=== PATIENT | male | born 1970 | race Caucasian/White ===

== ENCOUNTER 2017-09-13 17:02 | Emergency (ER) | payer BC, OTHER ==
[~2017-09-13] VITALS: Ht 167.6 cm; Wt 133.3 kg
[2017-09-13 17:06] VITALS: TEMP 36.4; Ht 167.6 cm; Wt 133.3 kg
[2017-09-13] MEDS ORDERED: DiphenhydrAMINE HCL 50 MG/ML VIAL IM STA (17:14)
[2017-09-13] MEDS ORDERED: PROCHLORPERAZINE 5 MG/ML 2 ML VIAL IM STA (17:14)
[2017-09-13] MEDS ORDERED: KETOROLAC TROMETHAMINE 60 MG/2 ML VIAL IM STA (17:14)
[2017-09-13] MEDS ORDERED: DIPH25TA33 PO (17:24)
[2017-09-13] MEDS ORDERED: SUMA50TA15 PO (17:24)
[2017-09-13] MEDS ORDERED: ATOR-24 PO (17:24)
[2017-09-13 18:16] VITALS: BP 149/95; PULSE 62; O2SAT 99
--- NOTE | 2017-09-13 19:44 | EMERGENCY ROOM VISIT NOTE ---
History Report prepared by Miko: Jesus Rosenberg Under the Supervision of: Dr. Rylan Cassidy M.D. First contact with patient: 17:09 Chief Complaint: HEADACHE Stated Complaint: MIGRAINE History of Present Illness The patient is a 47 year old male who presents to the Emergency Room with complaints of a constant, throbbing, migraine beginning last night. The patient states that he has a history of migraines and developed a migraine last night that worsened today when he was at work. He notes that his migraine is behind his eyes up to the top of his head. He also complains of vomiting just before coming to the emergency department. He reports that light worsens his symptoms. The patient states that he took Imitrex and Benadryl at 1430 today with no relief of his symptoms. He notes that he has not had a migraine this bad in over a year. He denies any fever, numbness, weakness, and recent trauma. Source of History: patient Onset: last night Position: head Quality: other (throbbing) Timing: constant Modifying Factors (Worsening): other (light) Associated Symptoms: + vomiting, No fevers, No weakness, No numbness Review of Systems See HPI for pertinent positives & negatives. A total of 10 systems reviewed and were otherwise negative. Past Medical & Surgical Medical Problems: (1) Kidney stones (2) Migraine Surgical Problems: (1) H/O hernia repair (2) H/O: knee surgery (3) History of hand surgery (4) History of hernia surgery (5) History of knee surgery (6) History of tonsillectomy Family History Cancer Diabetes mellitus Kidney disease Kidney stones Lung disease Social History Smoking Status: Never Smoker Alcohol Use: occasionally Marital Status: Housing Status: lives with family Occupation Status: employed Current/Historical Medications Scheduled Atorvastatin (Lipitor), 40 MG PO DAILY Scheduled PRN Diphenhydramine Hcl (Diphenhydramine Hcl), 25 MG PO UD PRN for Sleep Sumatriptan Succinate (Imitrex), 50 MG PO UD PRN for Headache Allergies Coded Allergies: Meclizine (Unverified Allergy, Severe, HEART RACE, 08/18/15) Physical Exam Vital Signs Date Time Temp Pulse Resp B/P (MAP) Pulse Ox O2 Delivery O2 Flow Rate FiO2 09/13/17 18:16 62 16 149/95 99 Room Air 09/13/17 17:06 36.4 75 18 151/84 98 Room Air Physical Exam Constitutional: Vital signs reviewed. Eyes: Pupils are equal round reactive to light. Conjunctiva are noninjected. ENT: Pharynx is clear without erythema or exudate. Mucous membranes are moist. Neck supple without meningeal signs. Respiratory: Clear to auscultation bilaterally. Breath sounds are equal bilaterally. Cardiovascular: Regular rate and rhythm. No rubs or gallops. GI: Soft, nondistended and nontender. Bowel sounds are present. Musculoskeletal: No peripheral edema. No lower extremity tenderness. Integumentary: No cyanosis. Neurological: The patient is awake and alert. Cranial nerves II-XII are intact. Motor is 5 out of 5 all extremities. Sensation is intact to light touch all extremities. Normal speech. No pronator drift. No limb ataxia. Psychiatric: Normal affect. Medical Decision & Procedures Medications Administered Medications (Trade) Dose Ordered Sig/Ashley Route Start Time Stop Time Status Last Admin Dose Admin Prochlorperazine Edisylate (Compazine Inj) 10 mg NOW STAT IM 09/13/17 17:14 09/13/17 17:15 DC 09/13/17 17:32 10 MG Diphenhydramine HCl (Benadryl Inj) 50 mg NOW STAT IM 09/13/17 17:14 09/13/17 17:15 DC 09/13/17 17:32 50 MG Ketorolac Tromethamine (Toradol Inj) 10 mg NOW STAT IM 09/13/17 17:14 09/13/17 17:15 DC 09/13/17 17:33 10 MG ED Course 1710: The patient was evaluated in room D7. A complete history and physical exam was performed. 1714: Toradol Inj 10mg IM, Benadryl 50mg IM, Compazine Inj 10mg IM 1750: The patient just received his medication and does not have any change to his symptoms. 1816: Upon reevaluation, the patient is feeling better. 1827: Upon reevaluation, the patient appeared to have improvement of his symptoms. I discussed tonight's findings with him. He verbalized agreement of the treatment plan. The patient was discharged home. Medical Decision This is a 47-year-old male who presents with headache. Differential diagnosis includes migraine headache, tension headache, intracranial mass, intracranial hemorrhage, meningitis. I did perform a limited focused review of portions of the patient's old chart on the electronic medical record. The patient has had no recent pertinent visits to this hospital. I did evaluate the patient as noted above. The patient is presenting with a headache consistent with his prior migraine headaches. He is neurologically intact. He is afebrile. There is no history of trauma to his head. I do not feel any laboratory testing or imaging was indicated. I did treat the patient with IM Compazine, Benadryl and Toradol. I did reassess the patient. He is feeling better and ready for discharge. He was advised to follow-up with his doctor and given return instructions as outlined below. Medication Reconcilliation Current Medication List: was personally reviewed by me Blood Pressure Screening Patient's blood pressure: Elevated blood pressure Blood pressure disposition: Referred to PCP Impression Primary Impression: Migraine Scribe Attestation The scribe's documentation has been prepared under my direct and personally reviewed by me in its entirety. I confirm that the note above accurately reflects all work, treatment, procedures, and medical decision making performed by me. Departure Information Dispostion Home / Self-Care Referrals Moo Russo D.O. (PCP) Forms HOME CARE DOCUMENTATION FORM, IMPORTANT VISIT INFORMATION Patient Instructions My [facility] Additional Instructions You have been examined and treated today on an emergency basis only. This is not a substitute for, or an effort to provide, complete comprehensive medical care. It is impossible to recognize and treat all injuries or illnesses in a single emergency department visit. It is therefore important that you follow up closely with your physician. Call as soon as possible for an appointment. Return for worsening symptoms or if you develop fever, numbness or weakness on one side of your body, difficulties with your speech or walking, or any other concerning symptoms. Problem Qualifiers Primary Impression: Migraine Migraine type: unspecified Status migrainosus presence: without status migrainosus Intractability: not intractable Qualified Codes: G43.909 - Migraine, unspecified, not intractable, without status migrainosus
== END 2017-09-13 18:32 | disposition home or self-care (01) ==
LOC: C.EDB 17:04 → C.EDD 18:32
DX: G43.909 Migraine, unspecified, not intractable, without status migrainosus (principal); Z88.8 Allergy status to other drugs, medicaments and biological substances

== ENCOUNTER 2022-07-24 16:45 | Inpatient (IN) ==
--- NOTE | 2022-07-24 17:06 | ED Triage Note ---
Date of Service July 24, 2022 History of Present Illness This patient was briefly evaluated while in triage. An abbreviated physical exam was performed. This patient is a 52-year-old Male who presents to the ED for evaluation of nausea, vomiting, and left flank pain. He had a kidney stone removed 8 days ago with stent placed. Stent is to be removed in 3 days. Pain is getting much worse today. Ran out of his pain medication and his zofran is no longer working. History of diverticulitis as well and he is unsure if his pain is secondary to the previous kidney stone, diverticulitis, or something else. Denies blood thinners. Physical Exam GENERAL: Non-toxic and in no acute distress. HEENT: Pupils equal. No obvious scleral icterus. HEART: Regular rate and rhythm. LUNGS: Clear to auscultation. No accessory muscle use. ABDOMEN: Soft, tender to palpation mainly in the left flank, but also mildly in the left lower quadrant. No guarding or rigidity. NEURO: Alert and oriented. No obvious neurological deficits on quick neuro exam. Initial orders for labs and / or imaging were placed and patient was placed in the waiting area until a bed is available. Please see further documentation for the full ED course.
[2022-07-24] MEDS ORDERED: SODIUM CHLORIDE 0.9% 500 ML IV STA (17:07)
[2022-07-24] MEDS ORDERED: ONDANSETRON INJ 2 MG/ML 2 ML VIAL IV STA (17:07)
[2022-07-24] MEDS ORDERED: KETOROLAC TROMETHAMINE 15 MG/ML VIAL IV STA (17:07)
--- NOTE | 2022-07-24 18:25 | CT Scan Report ---
CT SCAN OF THE ABDOMEN AND PELVIS WITHOUT IV CONTRAST CLINICAL HISTORY: Left flank pain. COMPARISON STUDY: No priors. TECHNIQUE: CT scan of the abdomen and pelvis is performed from the lung bases to the proximal femora. Images are reviewed in the axial, sagittal, and coronal planes. IV contrast was not administered for this examination. A dose lowering technique was utilized adhering to the principles of ALARA. CT DOSE: 1035.98 mGycm FINDINGS: Lung bases: The heart is normal in size and without pericardial effusion. The lung bases are clear. Liver: The unenhanced liver is enlarged, measuring 18.8 cm in length. The liver demonstrates diffusel y diminished attenuation indicating steatosis. There is no intrahepatic biliary ductal dilatation. Gallbladder: Unremarkable. Spleen: Normal in size and attenuation. Pancreas: Unremarkable. Adrenal glands: Unremarkable. Kidneys: The unenhanced kidneys are normal in size. A left ureteral stent is in place. No calcificati ons are identified in the left ureter along the course of the stent. There is mild left-sided hydrone phrosis. Urothelial thickening is seen in the left renal pelvis and left ureter with surrounding infl ammation. No renal calculi are identified in either kidney. There is no right-sided hydronephrosis. T here is no evidence of contour deforming renal mass lesion. Abdominal vasculature: The abdominal aorta is normal in course and caliber noting scattered foci of a therosclerotic calcification. Bowel: There is moderate colonic diverticulosis without CT evidence of acute diverticulitis. No bowel obstruction is seen. The appendix is well-visualized and normal. Peritoneum: There is no intraperitoneal free air or abdominal ascites. There is a fat-containing umbi lical hernia. Lymphadenopathy: None. Pelvic viscera: The prostate gland is diminutive and heterogeneous. The bladder wall appears mildly t hickened and trabeculated suggesting chronic outlet obstruction. The bladder contains the distal end of a left ureteral stent. Foci of intraluminal gas are nonspecific and may be related to recent instr umentation. There is evidence of previous bilateral inguinal herniorrhaphy. Skeletal structures: No lytic or blastic lesions are seen. IMPRESSION: 1. A left ureteral stent is in place. No calcifications are seen in either kidney or in the left uret er along the course of the stent. 2. There is mild left hydronephrosis. 3. Urothelial thickening is seen in the left renal pelvis and left ureter with surrounding inflammati on. This may be related to the presence of an indwelling catheter. Correlate with clinical findings a nd urinalysis for evidence of superimposed infection. 4. Hepatomegaly and hepatic steatosis. 5. Colonic diverticulosis without CT evidence of acute diverticulitis. 6. Additional findings as above. ACT 112: Negative or not required by law. Electronically signed by: Deep Darden M.D. 07/24/2022 6:24 PM
[2022-07-24] MEDS ORDERED: ONDANSETRON INJ 2 MG/ML 2 ML VIAL ONE (19:27)
[2022-07-24] MEDS ORDERED: KETOROLAC TROMETHAMINE 15 MG/ML VIAL ONE (19:27)
[2022-07-24 19:51] LABS: Basophils # (auto) 0.04 K/uL (0-0.2); Basophils % (auto) 0.3 %; Eosinophils # (auto) 0.06 K/uL (0-0.50); Eosinophils % (auto) 0.4 %; Hematocrit (blood only) 47.7 % (42.0-52.0); Hemoglobin 16.1 g/dl (14.0-18.0); Immature Granulocytes # (auto) 0.06 K/uL (0.01-0.20); Immature Granulocytes % (auto) 0.4 %; Lymphocytes # (auto) 1.82 K/uL (1.2-3.4); Lymphocytes % (auto) 12.4 %; Mean Corpuscular Hemoglobin 30.5 pg (25.0-34.0); Mean Corpuscular Hgb Conc 33.8 g/dL (32.0-36.0); Mean Corpuscular Volume 90.3 fL (80.0-100.0); Mean Platelet Volume 11.3 fL (9.4-12.4); Monocytes # (auto) 0.57 K/uL (0.11-0.59); Monocytes % (auto) 3.9 %; Neutrophils # (auto) 12.07 K/uL (1.40-6.50); Neutrophils % (auto) 82.6 %; Platelet Count 233 K/uL (130-400); RDW Coefficient of Variation 12.7 % (11.5-14.5); RDW Standard Deviation 42.1 fL (36.4-46.3); Red Blood Count 5.28 M/uL (4.70-6.10); White Blood Count 14.62 K/ul (4.8-10.8)
[2022-07-24 20:12] LABS: Albumin Globulin Ratio 1.3 (0.9-2); Albumin Level 4.4 gm/dl (3.4-5.0); BUN Creatinine Ratio 23.8 (10-20); Bilirubin,Total 0.6 mg/dl (0.2-1.0); Calcium 10.3 mg/dl (8.6-10.3); Creatinine Clr Calc Pharmacy 109.4 ml/min; Est GFR (African American) 100.1 ml/min; Est GFR (Non-African American) 86.3 ml/min; Globulin 3.3 gm/dl (2.5-4.0); Potassium 4.3 mmol/L (3.5-5.1); Total Protein 7.7 gm/dl (6.0-8.3)
[2022-07-24 20:18] LABS: Troponin I High Sensitivity 10.3 pg/ml (0-20)
[2022-07-24 21:26] LABS: Appearance Urine Turbid (Clear); Bacteria Urine Automated Negative (Negative); Bilirubin Urine Negative (Negative); Blood Urine 3+ (Negative); Color Urine Dark Yellow; Epithelial Cell Urine Auto >30 /lpf (0-5); Glucose Urine UA Negative (Negative); Ketones Urine 1+ (Negative); Leukocyte Esterase Urine 2+ (Negative); Nitrite Urine Positive (Negative); RBC Urine Automated >30 /hpf (0-4); Specific Gravity Urine 1.023 (1.000-1.030); Urobilinogen Urine Negative (Negative); pH Urine 7.5 (4.5-7.5)
[2022-07-24 21:31] LABS: Protein Urine 2+ (Negative)
[2022-07-24] MEDS ORDERED: SODIUM CHLORIDE 0.9% 1000ML 1,000 ML IV ONE ×2 (21:40→22:33)
[2022-07-24] MEDS ORDERED: CEFEPIME 2,000 MG/20 ML VIAL IV STA (21:40)
[2022-07-24] MEDS ORDERED: HYDROmorphone INJ 0.5 MG/0.5 ML SYR IV PRN (22:08)
[2022-07-24] MEDS ORDERED: HYDROCODONE/ACETAMOPHEN 5/325MG TAB PO PRN (22:33)
[2022-07-24] MEDS ORDERED: KETOROLAC TROMETHAMINE 15 MG/ML VIAL IV PRN (22:34)
[2022-07-24] MEDS ORDERED: lisinopril 10 MG TAB PO STA (22:58)
--- NOTE | 2022-07-24 23:00 | History & Physical Report ---
Date of Service July 24, 2022 Assessment & Plan (1) Sepsis: Plan: Secondary to complicated UTI Recent outpatient urologic procedure hypertension, elevated secondary to pain and missed home medications hyperlipidemia, not on statin Rx DM 2 on oral medications, well-controlled as of recent hemoglobin A1c of 6.4 last June 2022 hx on Flomax BPH Medical telemetry given elevated BP Lisinopril now and titrate as needed CS, Cefepime Urology consult Re: Postprocedure evaluation Basal bolus insulin, ISS BG goal 1 10-1 40, carb count coverage DVT prophylaxis. Lovenox subcu Full code Text document was generated using [employer] voice recognition software. It may contain grammatical or spelling errors. Kindly contact undersigned for clarification of any documentation item in question. History of Present Illness Chief Complaint: Nausea, vomiting, flank pain Primary Care Provider: Michael Nelson DO History obtained from patient and records. Medical history significant for hypertension, hyperlipidemia, DM 2 on oral medications, BPH, urolithiasis, migraine. [place] [facility] [place] last month for back pain complaints. Outpatient CT abdomen pelvis showed small left upper ureteral stone without hydronephrosis. Last week, patient underwent outpatient cystoscopy, left retrograde pyelography, left flexible ureteroscopy with laser lithotripsy and basket stone extraction and subsequent left ureteral stent placement at [facility] secondary to persistent back pain from stone. Postprocedure, patient noted tolerable left achy flank pain this, nausea, emesis symptoms with some hematuria. No fever, no chills. Worsening emesis and left flank pain symptoms No fever, no chills, no chest pain, no SOB. Patient unable to take home medications. SBP 190s upon arrival at the ER. Cefepime administered at the ER for complicated UTI. 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 Allergies Allergy/AdvReac Type Severity Reaction Status Date / Time acetaminophen [From Percocet] Allergy Severe itching Verified 01/18/19 08:28 amoxicillin [From Augmentin] Allergy Severe edema to Verified 01/18/19 08:28 face/lips/tongue, itching clavulanic acid Allergy Severe edema to Verified 01/18/19 08:28 [From Augmentin] face/lips/tongue, itching meclizine Allergy Severe HEART RACE Verified 01/18/19 08:28 oxycodone [From Percocet] Allergy Severe itching Verified 01/18/19 08:28 Home Medications Medication Instructions Recorded Confirmed Type lisinopril 10 mg tablet 10 mg PO DAILY 07/24/22 07/24/22 History meloxicam 15 mg tablet 15 mg PO QAM 07/24/22 07/24/22 History metformin 500 mg tablet,extended 500 mg PO BIDM 07/24/22 07/24/22 History release 24 hr ondansetron 4 mg disintegrating 0.4 mg translingual Q8 PRN Nausea 07/24/22 07/24/22 History tablet sumatriptan succinate 100 mg tablet 100 mg PO UD PRN Migraine Headache 07/24/22 07/24/22 History tamsulosin 0.4 mg capsule 0.4 mg PO DAILY 07/24/22 07/24/22 History Past Med/Surg History Medical History Asthma inhaler prn Diverticular disease Hyperlipidemia no meds Kidney stones Migraine Obesity, morbid, BMI 40.0-49.9 Osteoarthritis Sleep apnea sleep study test "inclusive"--no device Surgical History History of arthroscopy of right knee History of bilateral inguinal hernia repair History of right inguinal hernia repair History of tonsillectomy and adenoidectomy History of tooth extraction History of wisdom tooth extraction Hx of vasectomy Status post tendon repair right hand Family History Mother Family history of diabetes mellitus Other No family history of adverse response to anesthesia Social History Smoking Status: Never smoker Second Hand Exposure: Yes ( smokes); Hx Alcohol Use: Yes Alcohol type: beer and hard liquor Hx Substance Use: No Preferred Language: [place] Communication Ability: Effective 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: No Beliefs That Will Affect Care: None Current Living Situation: Family Other Information That Helps Us Care for You: No Feels Safe at Home: Yes Safety Concerns: Afraid for Self Assistive Devices: Glasses Review of Systems Review of Systems: As per HPI, all other systems reviewed and negative Physical Exam Physical Exam: GENERAL: Comfortable, son, morbidly obese, no respiratory distress SKIN: Normal color, warm HEENT: [place] palpebral conjunctivae, no ptosis, dry buccal mucosa NECK : Supple, neck, no tenderness CHEST : CTA, no tenderness HEART : RRR, no obvious murmurs ABDOMEN: Some distention, nontender EXTREMITIES : Minimal LE swelling, no LE tenderness, no other conspicuous deformities noted NEUROLOGIC : Coherent, no facial asymmetry, no other gross focality Results & Data Results & Data Vital Signs (Past 12 Hours) Vital Signs Temp Pulse Pulse Resp BP BP Pulse Ox 07/24/22 21:15 72 07/24/22 21:11 95 07/24/22 21:10 72 16 169/91 H 95 07/24/22 17:03 37 C 104 H 20 194/119 H 98 O2 Del Method 07/24/22 21:15 07/24/22 21:11 Room Air 07/24/22 21:10 Room Air 07/24/22 17:03 Room Air Laboratory Results Laboratory Results WBC 14.62 K/ul (4.8-10.8) H 07/24/22 19:30 RBC 5.28 M/uL (4.70-6.10) 07/24/22 19:30 Hgb 16.1 g/dl (14.0-18.0) 07/24/22 19:30 Hct 47.7 % (42.0-52.0) 07/24/22 19:30 MCV 90.3 fL (80.0-100.0) 07/24/22 19:30 MCH 30.5 pg (25.0-34.0) 07/24/22 19:30 MCHC 33.8 g/dL (32.0-36.0) 07/24/22 19:30 RDW Std Deviation 42.1 fL (36.4-46.3) 07/24/22 19:30 RDW Coeff of [place] 12.7 % (11.5-14.5) 07/24/22 19:30 Plt Count 233 K/uL (130-400) 07/24/22 19:30 MPV 11.3 fL (9.4-12.4) 07/24/22 19:30 Immature Gran % (Auto) 0.4 % 07/24/22 19:30 Neut % (Auto) 82.6 % 07/24/22 19:30 Lymph % (Auto) 12.4 % 07/24/22 19:30 [place] % (Auto) 3.9 % 07/24/22 19:30 Eos % (Auto) 0.4 % 07/24/22 19:30 Baso % (Auto) 0.3 % 07/24/22 19:30 Neut # (Auto) 12.07 K/uL (1.40-6.50) H 07/24/22 19:30 Lymph # (Auto) 1.82 K/uL (1.2-3.4) 07/24/22 19:30 Humphreys # (Auto) 0.57 K/uL (0.11-0.59) 07/24/22 19:30 Eos # (Auto) 0.06 K/uL (0-0.50) 07/24/22 19:30 Baso # (Auto) 0.04 K/uL (0-0.2) 07/24/22 19:30 Immature Gran # (Auto) 0.06 K/uL (0.01-0.20) 07/24/22 19:30 Sodium 139 mmol/L (136-145) 07/24/22 19:30 Potassium 4.3 mmol/L (3.5-5.1) 07/24/22 19:30 Chloride 102 mmol/L (98-107) 07/24/22 19:30 Carbon Dioxide 28 mmol/L (21-32) 07/24/22 19:30 Anion Gap 9 (3-11) 07/24/22 19:30 BUN 24 mg/dl (6-23) H 07/24/22 19:30 Creatinine 1.01 mg/dl (0.6-1.4) 07/24/22 19:30 Est Cr Clr Drug Dosing 109.4 ml/min 07/24/22 19:30 Est GFR ( Amer) 100.1 ml/min 07/24/22 19:30 Est GFR (Non-Af Amer) 86.3 ml/min 07/24/22 19:30 BUN/Creatinine Ratio 23.8 (10-20) H 07/24/22 19:30 Glucose 113 mg/dl (70-99(Fasting)) H 07/24/22 19:30 Calcium 10.3 mg/dl (8.6-10.3) 07/24/22 19:30 Magnesium 2.0 mg/dl (1.7-2.4) 07/24/22 19:30 Total Bilirubin 0.6 mg/dl (0.2-1.0) 07/24/22 19:30 AST 11 U/L (13-39) L 07/24/22 19:30 ALT 10 U/L (7-52) 07/24/22 19:30 Alkaline Phosphatase 70 U/L (34-104) 07/24/22 19: Troponin I High Sens 10.3 pg/ml (0-20) 07/24/22 19:30 Total Protein 7.7 gm/dl (6.0-8.3) 07/24/22 19: Albumin 4.4 gm/dl (3.4-5.0) 07/24/22 19:30 Globulin 3.3 gm/dl (2.5-4.0) 07/24/22 19: Albumin/Globulin Ratio 1.3 (0.9-2) 07/24/22 19: Lipase 13 U/L (11-82) 07/24/22 19:30 Urine Color Dark Yellow 07/24/22 21:13 Urine Appearance Turbid (Clear) A 07/24/22 21:13 Urine pH 7.5 (4.5-7.5) 07/24/22 21:13 Ur Specific [place] 1.023 (1.000-1.030) 07/24/22 21:13 Urine Protein 2+ (Negative) H 07/24/22 21:13 Urine Glucose (UA) Negative (Negative) 07/24/22 21:13 Urine Ketones 1+ (Negative) H 07/24/22 21:13 Urine Blood 3+ (Negative) H 07/24/22 21:13 Urine Nitrite Positive (Negative) A 07/24/22 21:13 Urine Bilirubin Negative (Negative) 07/24/22 21:13 Urine Urobilinogen Negative (Negative) 07/24/22 21:13 Ur Leukocyte Esterase 2+ (Negative) H 07/24/22 21:13 Urine WBC (Auto) 10-30 /hpf (0-5) H 07/24/22 21:13 Urine RBC (Auto) >30 /hpf (0-4) H 07/24/22 21:13 U Hyaline Cast (Auto) 5-10 /lpf (0-5) H 07/24/22 21:13 U Epithel Cells (Auto) >30 /lpf (0-5) H 07/24/22 21:13 Urine Bacteria (Auto) Negative (Negative) 07/24/22 21:13 Impressions Abdomen/Pelvis CT 07/24/22 17:07 CT SCAN OF THE ABDOMEN AND PELVIS WITHOUT IV CONTRAST CLINICAL HISTORY: Left flank pain. COMPARISON STUDY: No priors. TECHNIQUE: CT scan of the abdomen and pelvis is performed from the lung bases to the proximal femora. Images are reviewed in the axial, sagittal, and coronal planes. IV contrast was not administered for this examination. A dose lowering technique was utilized adhering to the principles of ALARA. CT DOSE: 1035.98 mGycm FINDINGS: Lung bases: The heart is normal in size and without pericardial effusion. The lung bases are clear. Liver: The unenhanced liver is enlarged, measuring 18.8 cm in length. The liver demonstrates diffusely diminished attenuation indicating steatosis. There is no intrahepatic biliary ductal dilatation. Gallbladder: Unremarkable. Spleen: Normal in size and attenuation. Pancreas: Unremarkable. Adrenal glands: Unremarkable. Kidneys: The unenhanced kidneys are normal in size. A left ureteral stent is in place. No calcifications are identified in the left ureter along the course of the stent. There is mild left-sided hydronephrosis. Urothelial thickening is seen in the left renal pelvis and left ureter with surrounding inflammation. No renal calculi are identified in either kidney. There is no right-sided hydronephrosis. There is no evidence of contour deforming renal mass lesion. Abdominal vasculature: The abdominal aorta is normal in course and caliber noting scattered foci of atherosclerotic calcification. Bowel: There is moderate colonic diverticulosis without CT evidence of acute diverticulitis. No bowel obstruction is seen. The appendix is well-visualized and normal. Peritoneum: There is no intraperitoneal free air or abdominal ascites. There is a fat-containing umbilical hernia. Lymphadenopathy: None. Pelvic viscera: The prostate gland is diminutive and heterogeneous. The bladder wall appears mildly thickened and trabeculated suggesting chronic outlet obstruction. The bladder contains the distal end of a left ureteral stent. Foci of intraluminal gas are nonspecific and may be related to recent instrumentation. There is evidence of previous bilateral inguinal herniorrhaphy. Skeletal structures: No lytic or blastic lesions are seen. IMPRESSION: 1. A left ureteral stent is in place. No calcifications are seen in either kidney or in the left ureter along the course of the stent. 2. There is mild left hydronephrosis. 3. Urothelial thickening is seen in the left renal pelvis and left ureter with surrounding inflammation. This may be related to the presence of an indwelling catheter. Correlate with clinical findings and urinalysis for evidence of superimposed infection. 4. Hepatomegaly and hepatic steatosis. 5. Colonic diverticulosis without CT evidence of acute diverticulitis. 6. Additional findings as above. ACT 112: Negative or not required by law. Electronically signed by: Deep Darden M.D. 07/24/2022 6:24 PM Diagnostic Findings EKG as per my interpretation : Rate 105, sinus tachycardia, normal axis, T wave abnormalities inferior leads
[2022-07-24] MEDS ORDERED: LORazepam 0.5 MG TAB PO PRN (23:06)
[2022-07-24] MEDS ORDERED: GLUCOSE 10 TAB/TUBE PO PRN (23:56)
[2022-07-24] MEDS ORDERED: CARBOHYDRATES FOR HYPOGLYCEMIA PO PRN (23:56)
[2022-07-24] MEDS ORDERED: DEXTROSE 50% 50 ML SYRINGE IV PRN (23:56)
[2022-07-24] MEDS ORDERED: GLUCOSE 40% GEL 15 GM TUBE PO PRN (23:56)
[2022-07-24] MEDS ORDERED: GABAPENTIN 300 MG CAP PO SCH (23:56)
[2022-07-24] MEDS ORDERED: GLUCAGON FOR INJ 1 MG VIAL SQ PRN (23:56)
[2022-07-25] MEDS: INSULIN ASPART PER UNIT CHARGE SC SCH ×5 (00:32→21:39)
[2022-07-25] MEDS: MoRPHine SULFATE 2 MG/ML CARP IV PRN ×2 (00:33→04:28)
--- NOTE | 2022-07-25 03:05 | Emergency Department Note ---
Impression & Plan Acute pyelonephritis, Acute left flank pain ED Provider Note INFORMANT: Patient ED PROVIDER(S): Jerardo Charles MD CHIEF COMPLAINT: Left flank pain PLAN: Disposition: Admitted Condition: Good Outpatient prescription management: none Referral: None MEDICAL DECISION MAKING: Patient presented to the emergency department complaining of left flank pain. A work-up was initiated. He was found to have a leukocytosis on CBC. Chemistry panel shows a mild dehydration. Urinalysis is very concerning for infection. ECG showed a sinus tachycardia without ischemia. Patient underwent CT imaging. CT imaging was concerning for inflammatory/infectious changes of the kidney. Gi srinath his symptoms I am concerned about a pyelonephritis. The patient was given IV cefepime and did well with this despite his penicillin allergy. He was also treated with Toradol, fluids, Zofran, and Dilaudid. Further management in the hospital will be necessary. Consultation was made with Dr. Anthony Arnett, [facility] hospitalist service. Patient was evaluated in the ER and admitted for further management Discussed with digital community manager After review of the information above and other included data, I feel the patient requires admission. Triage Nursing notes reviewed and agree them. Vital Signs: reviewed and remarkable for no significant abnormalities Prior /Outside records reviewed: none Differential diagnosis: Renal colic, UTI, appendicitis, diverticulitis, mesenteric ischemia, aortic pathology, infections, inflammatory bowel disease, PUD, biliary pathology, as well as other pathologies. Diagnostics, as interpreted by me: ECLead ECG reveals a sinus tachycardia at 101 bpm. No evidence of ST elevation or depression. No PACs or PVCs. Cardiac Monitoring: Cardiac monitoring ordered by me: The patient was placed on continuous cardiac monitoring and observed. It revealed a normal sinus rhythm at 87 beats per minute without ectopy or evidence of dysrhythmia. Medical decision rules: none Imaging studies: CT scan as noted above. Concerning for pyelonephritis. HPI: The patient is a 52-year-old male who presents to the Emergency Room with complaints of left flank pain. This started 3 days ago and is worsening since his urologic procedure. The patient also notes the following associated symptoms, nausea and vomiting . The patient has found no relieving factors. Current pain is rated as 5/10. Patient had kidney stone removal done in [place] by Dr. Ayala. He has a stent in place. Pt denies LOC, headache, fevers, chills, diaphoresis, visual changes, neck pain, chest pain, breathing difficulties, back pain, melena, hematochezia, urinary symptoms, numbness, weakness, lymphadenopathy, rash, or other complaints. PAST MEDICAL HISTORY: See Below, kidney stone PAST SURGICAL HISTORY: See Below, SOCIAL HISTORY: See Below, non-smoker HOME MEDICATIONS: See Below ALLERGIES: See Below VITALS: See Below PHYSICAL EXAMINATION: GENERAL: Awake, alert, uncomfortable-appearing, in no distress HENT: Normocephalic, atraumatic. Oropharynx unremarkable. EYES: Normal conjunctiva. Sclera non-icteric. NECK: Inspection normal. Non-tender. Supple. No nuchal rigidity. FROM. No masses. RESPIRATORY: Clear to auscultation. No wheezes. No rales. Normal respiratory effort. CARDIAC: Normal rate. Normal rhythm. No murmurs. No rubs. Extremities warm and well perfused. Pulses equal. No JVD. GI: Soft, non-distended. Left flank tenderness to palpation. No rebound or guarding. No masses. RECTAL: Deferred. MUSCULOSKELETAL: Atraumatic. Chest examination reveals no tenderness. The back is symmetrical on inspection without obvious abnormality. There is left CVA tenderness to palpation. No joint edema. LOWER EXTREMITIES: Calves are equal size bilaterally and non-tender. No edema. No discoloration. NEURO: Normal sensorium. No sensory or motor deficits noted. SKIN: No rash or jaundice noted. Past Med/Surg History Medical History (Updated 07/25/22 @ 03:05 by Jerardo Charles MD) Asthma inhaler prn Diverticular disease Hyperlipidemia no meds Kidney stones Migraine Obesity, morbid, BMI 40.0-49.9 Osteoarthritis Sleep apnea sleep study test "inclusive"--no device Surgical History History of arthroscopy of right knee History of bilateral inguinal hernia repair History of right inguinal hernia repair History of tonsillectomy and adenoidectomy History of tooth extraction History of wisdom tooth extraction Hx of vasectomy Status post tendon repair right hand Family History Mother Family history of diabetes mellitus Other No family history of adverse response to anesthesia Social History Smoking Status: Never smoker Second Hand Exposure: Yes ( smokes); Hx Alcohol Use: Yes Alcohol type: beer and hard liquor Hx Substance Use: No Preferred Language: Martiniquais Communication Ability: Effective Manager Technical Sales Required: No Beliefs That Will Affect Care: None Current Living Situation: Family Other Information That Helps Us Care for You: No Feels Safe at Home: Yes Safety Concerns: Afraid for Self Assistive Devices: Glasses Allergies Allergies Allergy/AdvReac Type Severity Reaction Status Date / Time acetaminophen [From Percocet] Allergy Severe itching Verified 01/18/19 08:28 amoxicillin [From Augmentin] Allergy Severe edema to Verified 01/18/19 08:28 face/lips/tongue, itching clavulanic acid Allergy Severe edema to Verified 01/18/19 08:28 [From Augmentin] face/lips/tongue, itching meclizine Allergy Severe HEART RACE Verified 01/18/19 08:28 oxycodone [From Percocet] Allergy Severe itching Verified 01/18/19 08:28 Home Meds Home Medications Medication Instructions Recorded Confirmed lisinopril 10 mg tablet 10 mg PO DAILY 07/24/22 07/24/22 meloxicam 15 mg tablet 15 mg PO QAM 07/24/22 07/24/22 metformin 500 mg tablet,extended 500 mg PO BIDM 07/24/22 07/24/22 release 24 hr ondansetron 4 mg disintegrating 0.4 mg translingual Q8 PRN Nausea 07/24/22 07/24/22 tablet sumatriptan succinate 100 mg tablet 100 mg PO UD PRN Migraine Headache 07/24/22 07/24/22 tamsulosin 0.4 mg capsule 0.4 mg PO DAILY 07/24/22 07/24/22 Results & Data (ED) Vital Signs Vital Signs - 24 hr 07/24/22 17:03 07/24/22 21:10 07/24/22 21:11 Temperature 37 C Temperature Source Temporal Artery Scan Pulse Rate 104 H Pulse Rate [Apical] 72 Respiratory Rate 20 16 Respiratory Effort / Characteristics Non-Labored Spontaneous Non-Labored Spontaneous Respiratory Depth Normal Normal Respiratory Pattern Regular Regular Blood Pressure 194/119 H Blood Pressure [Left Arm] 169/91 H Blood Pressure Mean 144 Blood Pressure Mean [Left Arm] 117 Blood Pressure Position [Left Arm] Semi-fowlers Pulse Oximetry 98 95 95 Oxygen Delivery Method Room Air Room Air Room Air Sepsis Recent Fever Within 48 Hours No Sepsis New/Unexplained Change in Mental Status No Sepsis Action Taken by Nursing No Action Required 07/24/22 21:15 Temperature Temperature Source Pulse Rate 72 Pulse Rate [Apical] Respiratory Rate Respiratory Effort / Characteristics Respiratory Depth Respiratory Pattern Blood Pressure Blood Pressure [Left Arm] Blood Pressure Mean Blood Pressure Mean [Left Arm] Blood Pressure Position [Left Arm] Pulse Oximetry Oxygen Delivery Method Sepsis Recent Fever Within 48 Hours Sepsis New/Unexplained Change in Mental Status Sepsis Action Taken by Nursing Laboratory Data 07/24/22 19:30 07/24/22 19:30 Lab Results 07/24/22 07/24/22 07/24/22 Range/Units 19:30 19:30 21:13 WBC 14.62 H (4.8-10.8) K/ul RBC 5.28 (4.70-6.10) M/uL Hgb 16.1 (14.0-18.0) g/dl Hct 47.7 (42.0-52.0) % MCV 90.3 (80.0-100.0) fL MCH 30.5 (25.0-34.0) pg MCHC 33.8 (32.0-36.0) g/dL RDW Std Deviation 42.1 (36.4-46.3) fL RDW Coeff of [place] 12.7 (11.5-14.5) % Plt Count 233 (130-400) K/uL MPV 11.3 (9.4-12.4) fL Immature Gran % (Auto) 0.4 % Neut % (Auto) 82.6 % Lymph % (Auto) 12.4 % Wake % (Auto) 3.9 % Eos % (Auto) 0.4 % Baso % (Auto) 0.3 % Neut # (Auto) 12.07 H (1.40-6.50) K/uL Lymph # (Auto) 1.82 (1.2-3.4) K/uL Wake # (Auto) 0.57 (0.11-0.59) K/uL Eos # (Auto) 0.06 (0-0.50) K/uL Baso # (Auto) 0.04 (0-0.2) K/uL Immature Gran # (Auto) 0.06 (0.01-0.20) K/uL Sodium 139 (136-145) mmol/L Potassium 4.3 (3.5-5.1) mmol/L Chloride 102 (98-107) mmol/L Carbon Dioxide 28 (21-32) mmol/L Anion Gap 9 (3-11) BUN 24 H (6-23) mg/dl Creatinine 1.01 (0.6-1.4) mg/dl Est Cr Clr Drug Dosing 109.4 ml/min Est GFR ( Amer) 100.1 ml/min Est GFR (Non-Af Amer) 86.3 ml/min BUN/Creatinine Ratio 23.8 H (10-20) Glucose 113 H (70-99(Fasting)) mg/dl Lactate (0.4-2.0) mmol/L Calcium 10.3 (8.6-10.3) mg/dl Magnesium 2.0 (1.7-2.4) mg/dl Total Bilirubin 0.6 (0.2-1.0) mg/dl AST 11 L (13-39) U/L ALT 10 (7-52) U/L Alkaline Phosphatase 70 (34-104) U/L Troponin I High Sens 10.3 (0-20) pg/ml Total Protein 7.7 (6.0-8.3) gm/dl Albumin 4.4 (3.4-5.0) gm/dl Globulin 3.3 (2.5-4.0) gm/dl Albumin/Globulin Ratio 1.3 (0.9-2) Lipase 13 (11-82) U/L Urine Color Dark Yellow Urine Appearance Turbid A (Clear) Urine pH 7.5 (4.5-7.5) Ur Specific [place] 1.023 (1.000-1.030) Urine Protein 2+ H (Negative) Urine Glucose (UA) Negative (Negative) Urine Ketones 1+ H (Negative) Urine Blood 3+ H (Negative) Urine Nitrite Positive A (Negative) Urine Bilirubin Negative (Negative) Urine Urobilinogen Negative (Negative) Ur Leukocyte Esterase 2+ H (Negative) Urine WBC (Auto) 10-30 H (0-5) /hpf Urine RBC (Auto) >30 H (0-4) /hpf U Hyaline Cast (Auto) 5-10 H (0-5) /lpf U Epithel Cells (Auto) >30 H (0-5) /lpf Urine Bacteria (Auto) Negative (Negative) SARS-CoV-2, RNA, NAAT (NEGATIVE) 07/24/22 07/24/22 Range/Units 22:30 23:02 WBC (4.8-10.8) K/ul RBC (4.70-6.10) M/uL Hgb (14.0-18.0) g/dl Hct (42.0-52.0) % MCV (80.0-100.0) fL MCH (25.0-34.0) pg MCHC (32.0-36.0) g/dL RDW Std Deviation (36.4-46.3) fL RDW Coeff of [place] (11.5-14.5) % Plt Count (130-400) K/uL MPV (9.4-12.4) fL Immature Gran % (Auto) % Neut % (Auto) % Lymph % (Auto) % Wake % (Auto) % Eos % (Auto) % Baso % (Auto) % Neut # (Auto) (1.40-6.50) K/uL Lymph # (Auto) (1.2-3.4) K/uL Wake # (Auto) (0.11-0.59) K/uL Eos # (Auto) (0-0.50) K/uL Baso # (Auto) (0-0.2) K/uL Immature Gran # (Auto) (0.01-0.20) K/uL Sodium (136-145) mmol/L Potassium (3.5-5.1) mmol/L Chloride (98-107) mmol/L Carbon Dioxide (21-32) mmol/L Anion Gap (3-11) BUN (6-23) mg/dl Creatinine (0.6-1.4) mg/dl Est Cr Clr Drug Dosing ml/min Est GFR ( Amer) ml/min Est GFR (Non-Af Amer) ml/min BUN/Creatinine Ratio (10-20) Glucose (70-99(Fasting)) mg/dl Lactate 1.0 (0.4-2.0) mmol/L Calcium (8.6-10.3) mg/dl Magnesium (1.7-2.4) mg/dl Total Bilirubin (0.2-1.0) mg/dl AST (13-39) U/L ALT (7-52) U/L Alkaline Phosphatase (34-104) U/L Troponin I High Sens (0-20) pg/ml Total Protein (6.0-8.3) gm/dl Albumin (3.4-5.0) gm/dl Globulin (2.5-4.0) gm/dl Albumin/Globulin Ratio (0.9-2) Lipase (11-82) U/L Urine Color Urine Appearance (Clear) Urine pH (4.5-7.5) Ur Specific [place] (1.000-1.030) Urine Protein (Negative) Urine Glucose (UA) (Negative) Urine Ketones (Negative) Urine Blood (Negative) Urine Nitrite (Negative) Urine Bilirubin (Negative) Urine Urobilinogen (Negative) Ur Leukocyte Esterase (Negative) Urine WBC (Auto) (0-5) /hpf Urine RBC (Auto) (0-4) /hpf U Hyaline Cast (Auto) (0-5) /lpf U Epithel Cells (Auto) (0-5) /lpf Urine Bacteria (Auto) (Negative) SARS-CoV-2, RNA, NAAT NEGATIVE (NEGATIVE) Administered Medications Sodium Chloride (Nss 1000ml) 1,000 mls @ 100 mls/hr IV .Q10H ONE Stop: 07/25/22 08:32 Last Admin: 07/24/22 23:57 Dose: 100 mls/hr Documented By: KUN Insulin Aspart (Insulin Aspart Per Unit Charge) 0 units SC ACHS [facility] Stop: 08/23/22 23:55 Last Admin: 07/25/22 00:32 Dose: Not Given Documented By: KUN Morphine Sulfate (Morphine Sulfate 2 Mg/Ml Carp) 2 mg IV Q3H PRN PRN Reason: Pain Stop: 08/07/22 22:58 Last Admin: 07/25/22 00:33 Dose: 2 mg Documented By: KUN Discontinued Medications Gabapentin (Gabapentin 300 Mg Cap) 300 mg PO AMHS [facility] Stop: 08/23/22 23:55 Last Admin: 07/25/22 00:22 Dose: Not Given Documented By: KUN Sodium Chloride (Nss) 500 mls @ 999 mls/hr IV .Q31M STA Stop: 07/24/22 17:37 Last Infusion: 07/24/22 21:11 Dose: 0 mls/hr Documented By: Admin: 07/24/22 19:33 Dose: 999 mls/hr Documented By: HANS Sodium Chloride (Nss 1000ml) 1,000 mls @ 999 mls/hr IV .Q1H1M ONE Stop: 07/24/22 22:40 Last Infusion: 07/24/22 23:35 Dose: 0 mls/hr Documented By: Admin: 07/24/22 21:53 Dose: 999 mls/hr Documented By: MCKENZIE Cefepime HCl (Maxipime) 2,000 mg in 20 mls @ 5 mls/min IV NOW STA; Protocol Stop: 07/24/22 21:43 Last Admin: 07/24/22 21:52 Dose: 5 mls/min Documented By: MCKENZIE Ketorolac Tromethamine (Ketorolac Tromethamine 15 Mg/Ml Vial) 10 mg IV NOW STA Stop: 07/24/22 17:08 Last Admin: 07/24/22 19:30 Dose: 10 mg Documented By: HANS Ketorolac Tromethamine (Ketorolac Tromethamine 15 Mg/Ml Vial) Confirm Administered Dose 15 mg .ROUTE .STK-MED ONE Stop: 07/24/22 19:28 Last Admin: 07/24/22 19:33 Dose: Not Given Documented By: HANS Lisinopril (Lisinopril 10 Mg Tab) 10 mg PO NOW STA Stop: 07/24/22 22:59 Last Admin: 07/24/22 23:38 Dose: 10 mg Documented By: NICK Ondansetron HCl (Ondansetron Inj 2 Mg/Ml 2 Ml Vial) 4 mg IV NOW STA Stop: 07/24/22 17:08 Last Admin: 07/24/22 19:33 Dose: 4 mg Documented By: HANS Ondansetron HCl (Ondansetron Inj 2 Mg/Ml 2 Ml Vial) Confirm Administered Dose 4 mg .ROUTE .STK-MED ONE Stop: 07/24/22 19:28 Last Admin: 07/24/22 19:33 Dose: Not Given Documented By: HANS Imaging Data Radiologist's Impression: Abdomen/Pelvis CT 07/24/22 17:07 CT SCAN OF THE ABDOMEN AND PELVIS WITHOUT IV CONTRAST CLINICAL HISTORY: Left flank pain. COMPARISON STUDY: No priors. TECHNIQUE: CT scan of the abdomen and pelvis is performed from the lung bases to the proximal femora. Images are reviewed in the axial, sagittal, and coronal p lanes. IV contrast was not administered for this examination. A dose lowering technique was utilized adhering to the principles of ALARA. CT DOSE: 1035.98 mGycm FINDINGS: Lung bases: The heart is normal in size and without pericardial effusion. The lung bases are clear. Liver: The unenhanced liver is enlarged, measuring 18.8 cm in length. The liver demonstrates diffusely diminished attenuation indicating steatosis. There is no intrahepatic biliary ductal dilatation. Gallbladder: Unremarkable. Spleen: Normal in size and attenuation. Pancreas: Unremarkable. Adrenal glands: Unremarkable. Kidneys: The unenhanced kidneys are normal in size. A left ureteral stent is in place. No calcifications are identified in the left ureter along the course of the stent. There is mild left-sided hydronephrosis. Urothelial thickening is seen in the left renal pelvis and left ureter with surrounding inflammation. No renal calculi are identified in either kidney. There is no right-sided hydronephrosis. There is no evidence of contour deforming renal mass lesion. Abdominal vasculature: The abdominal aorta is normal in course and caliber noting scattered foci of atherosclerotic calcification. Bowel: There is moderate colonic diverticulosis without CT evidence of acute diverticulitis. No bowel obstruction is seen. The appendix is well-visualized and normal. Peritoneum: There is no intraperitoneal free air or abdominal ascites. There is a fat-containing umbilical hernia. Lymphadenopathy: None. Pelvic viscera: The prostate gland is diminutive and heterogeneous. The bladder wall appears mildly thickened and trabeculated suggesting chronic outlet obstruction. The bladder contains the distal end of a left ureteral stent. Foci of intraluminal gas are nonspecific and may be related to recent instrumentation. There is evidence of previous bilateral inguinal herniorrhaphy. Skeletal structures: No lytic or blastic lesions are seen. IMPRESSION: 1. A left ureteral stent is in place. No calcifications are seen in either kidney or in the left ureter along the course of the stent. 2. There is mild left hydronephrosis. 3. Urothelial thickening is seen in the left renal pelvis and left ureter with surrounding inflammation. This may be related to the presence of an indwelling catheter. Correlate with clinical findings and urinalysis for evidence of superimposed infection. 4. Hepatomegaly and hepatic steatosis. 5. Colonic diverticulosis without CT evidence of acute diverticulitis. 6. Additional findings as above. ACT 112: Negative or not required by law. Electronically signed by: Deep Darden M.D. 07/24/2022 6:24 PM Discharge Plan Visit Data Chief Complaint: Vomiting Stated Complaint: VOMIT,UNABLE TO KEEP FOOD DOWN,HAD SURGERY THURS ED Provider: Jerardo Charles Discharge Problem: Acute pyelonephritis, Acute left flank pain Patient Disposition: Admitted As Inpatient Discharge Instructions Interventions: ED Discharge Assessment Last Done: 07/24/22 23:39
--- NOTE | 2022-07-25 03:36 | Urology Consultation ---
Date of Consultation July 25, 2022 Assessment & Plan (1) Acute pyelonephritis: The patient has been admitted to the hospitalist service. We recommend proceeding as follows: Provide analgesics Provide antiemetics Provide IV fluid for hydration Antibiotics in the form of cefepime have been initiated for suspected UTI/pyelonephritis based on urinalysis. Would recommend continue these antibiotics and await culture results which have been sent. Both blood and urine cultures have been sent. Once culture data is available antibiotics can be tailored based on this Should be noted that at the time of patient's presentation he was noted to be tachycardic. He has been resuscitated thus far with intravenous fluids and antibiotics as noted above and his tachycardia has currently resolved. The patient's pain has resolved and he is currently afebrile. He is also not noted to be hypotensive. He does have a slight leukocytosis. It appears as though his left ureteral stent is in good position. An emergent urologic procedure is not required at this time. We will continue to follow along with the patient is hospitalized. Upon discharge the patient is to follow-up with his regular urologist with the [facility]. History of Present Illness Reason for Consultation: Left flank pain Attending Physician: Dante Kohler MD History of Present Illness This is a 52-year-old male who underwent a cystoscopy last week at [facility] by Dr. Noel Ayala. The patient had a left ureteral stent placed. The patient presented to the emergency department as he was initially doing well after his procedure but he developed some worsening left flank pain. The patient says he has had some intermittent nausea vomiting. He is unsure if he has had any fevers but has had a couple chills. He does report some intermittent dysuria but does not report any hematuria. Upon presentation to the emergency department the patient had labs and imaging which I independent reviewed. A CT scan of the abdomen pelvis showed patient had a left ureteral stent in place. There is some mild left hydronephrosis. There is some urothelial thickening in the left renal pelvis and the left ureter. Labs include a CBC were white blood cell count was elevated at 14.6. Hemoglobin, hematocrit, platelet count were normal. Chemistry profile showed sodium, potassium, and creatinine were normal. There is a slight elevation of BUN at 24. Lactic acid was nonelevated. Urinalysis showed turbid urine which was positive for nitrites and 2+ leukocyte Estrace. There were 10-30 white blood cells per high-power field and no bacteria. A COVID test was negative. At the time of my interview the patient was resting comfortably in bed he is in no distress. Allergies Allergy/AdvReac Type Severity Reaction Status Date / Time acetaminophen [From Percocet] Allergy Severe itching Verified 01/18/19 08:28 amoxicillin [From Augmentin] Allergy Severe edema to Verified 01/18/19 08:28 face/lips/tongue, itching clavulanic acid Allergy Severe edema to Verified 01/18/19 08:28 [From Augmentin] face/lips/tongue, itching meclizine Allergy Severe HEART RACE Verified 01/18/19 08:28 oxycodone [From Percocet] Allergy Severe itching Verified 01/18/19 08:28 Home Medications Medication Instructions Recorded Confirmed Type lisinopril 10 mg tablet 10 mg PO DAILY 07/24/22 07/24/22 History meloxicam 15 mg tablet 15 mg PO QAM 07/24/22 07/24/22 History metformin 500 mg tablet,extended 500 mg PO BIDM 07/24/22 07/24/22 History release 24 hr ondansetron 4 mg disintegrating 0.4 mg translingual Q8 PRN Nausea 07/24/22 07/24/22 History tablet sumatriptan succinate 100 mg tablet 100 mg PO UD PRN Migraine Headache 07/24/22 07/24/22 History tamsulosin 0.4 mg capsule 0.4 mg PO DAILY 07/24/22 07/24/22 History Patient History Medical History Asthma inhaler prn Diverticular disease Hyperlipidemia no meds Kidney stones Migraine Obesity, morbid, BMI 40.0-49.9 Osteoarthritis Sleep apnea sleep study test "inclusive"--no device Surgical History History of arthroscopy of right knee History of bilateral inguinal hernia repair History of right inguinal hernia repair History of tonsillectomy and adenoidectomy History of tooth extraction History of wisdom tooth extraction Hx of vasectomy Status post tendon repair right hand Family History Mother Family history of diabetes mellitus Other No family history of adverse response to anesthesia Social History Smoking Status: Never smoker Second Hand Exposure: Yes ( smokes); Hx Alcohol Use: Yes Alcohol type: beer and hard liquor Hx Substance Use: No Preferred Language: Lithuanian Communication Ability: Effective Superintendent Gas Distribution Required: No Beliefs That Will Affect Care: None Current Living Situation: Family Other Information That Helps Us Care for You: No Feels Safe at Home: Yes Safety Concerns: Afraid for Self Assistive Devices: Glasses Review of Systems Constitutional: + chills; no fever Eyes: no eye pain Ear, Nose, Mouth, Throat: no ear pain Respiratory: no cough and no dyspnea Cardiovascular: no chest pain Gastrointestinal: + nausea and + vomiting; no abdominal pain Genitourinary: + as per Subjective / HPI Musculoskeletal: + back pain (Left flank) Integumentary: no rash Neurologic: no localized weakness Physical Exam Constitutional: WD/WN, vitals as above Eyes: no conjunctival abnormality ENMT: Ears: no hearing impairment and no external ear abnormality Mouth: no oropharynx abnormality Neck: trachea midline Respiratory: normal respiratory effort; no respiratory distress and no labored breathing Cardiovascular: Rate/Rhythm: regular rate and regular rhythm Gastrointestinal (Abdomen): Abdomen is rotund and soft and nonrigid. There is no pain with palpation. Musculoskeletal: No calf tenderness Skin: no rashes Neurologic: moves all extremities Psychiatric: A+Ox3, euthymic affect Genitourinary: + CVA tenderness (Minimal CVA tenderness noted on left with percussion) Results & Data Vital Signs (Past 12 Hours) Vital Signs Temp Pulse Pulse Resp BP BP Pulse Ox 07/25/22 00:02 87 07/25/22 00:01 36.4 C L 71 18 120/77 92 07/24/22 23:59 36.8 C 79 16 146/85 H 96 07/24/22 23:39 83 20 179/101 H 98 07/24/22 21:15 72 07/24/22 21:11 95 07/24/22 21:10 72 16 169/91 H 95 07/24/22 17:03 37 C 104 H 20 194/119 H 98 O2 Del Method 07/25/22 00:02 07/25/22 00:01 Room Air 07/24/22 23:59 Room Air 07/24/22 23:39 Room Air 07/24/22 21:15 07/24/22 21:11 Room Air 07/24/22 21:10 Room Air 07/24/22 17:03 Room Air PG Care Time/CCT Total # of Minutes Spent Total Time Spent with Patient: Total time spent is greater than 50% in coordination of care (as documented) at patient's floor/unit and/or counseling patient: Coding Level of Care Code 04901 IN/OBS CONSULT LVL 5,80M Diagnoses Acute pyelonephritis N10
[2022-07-25] MEDS: PROMETHAZINE HCL 12.5 MG in SODIUM CHLORIDE 0.9% 50 ML IV PRN (04:33)
[2022-07-25] MEDS: CEFEPIME 2,000 MG in SYRINGE 0 ML IV SCH ×3 (06:27→21:45)
[2022-07-25 07:18] LABS: Basophils # (auto) 0.02 K/uL (0-0.2); Basophils % (auto) 0.2 %; Eosinophils # (auto) 0.18 K/uL (0-0.50); Eosinophils % (auto) 1.5 %; Hematocrit (blood only) 42.2 % (42.0-52.0); Hemoglobin 13.9 g/dl (14.0-18.0); Immature Granulocytes # (auto) 0.04 K/uL (0.01-0.20); Immature Granulocytes % (auto) 0.3 %; Lymphocytes # (auto) 1.86 K/uL (1.2-3.4); Lymphocytes % (auto) 15.9 %; Mean Corpuscular Hemoglobin 30.5 pg (25.0-34.0); Mean Corpuscular Hgb Conc 32.9 g/dL (32.0-36.0); Mean Corpuscular Volume 92.7 fL (80.0-100.0); Mean Platelet Volume 11.1 fL (9.4-12.4); Monocytes # (auto) 0.71 K/uL (0.11-0.59); Monocytes % (auto) 6.1 %; Neutrophils # (auto) 8.92 K/uL (1.40-6.50); Platelet Count 195 K/uL (130-400); RDW Coefficient of Variation 12.9 % (11.5-14.5); RDW Standard Deviation 43.8 fL (36.4-46.3); Red Blood Count 4.55 M/uL (4.70-6.10); White Blood Count 11.73 K/ul (4.8-10.8)
[2022-07-25] MEDS ORDERED: ACETAMINOPHEN 500 MG TAB PO PRN (07:40)
[2022-07-25] MEDS ORDERED: ACETAMINOPHEN 325 MG TAB PO PRN (07:40)
[2022-07-25 07:42] LABS: BUN Creatinine Ratio 23.2 (10-20); Creatinine Clr Calc Pharmacy 112.7 ml/min; Est GFR (African American) 102.5 ml/min; Est GFR (Non-African American) 88.4 ml/min; Potassium 4.4 mmol/L (3.5-5.1)
[2022-07-25] MEDS: lisinopril 10 MG TAB PO SCH (08:46)
[2022-07-25] MEDS: TAMSULOSIN HCL 0.4 MG CAP PO SCH (08:46)
[2022-07-25] MEDS: ENOXAPARIN INJ 40 MG/0.4 ML SYR SQ SCH (08:47)
--- NOTE | 2022-07-25 12:25 | Electrocardiogram Report ---
Test Reason : Blood Pressure : / mmHG Vent. Rate : 101 BPM Atrial Rate : 101 BPM P-R Int : 142 ms QRS Dur : 086 ms QT Int : 318 ms P-R-T Axes : 070 031 018 degrees QTc Int : 412 ms Sinus tachycardia Possible Left atrial enlargement Borderline ECG No previous ECGs available Confirmed by Eder Lay ([id number]) on 07/25/2022 12:25:40 PM Referred By: Noel Ayala Confirmed By:Eder Lay
--- NOTE | 2022-07-25 17:54 | Hospitalist Progress Note ---
Date of Service July 25, 2022 Assessment & Plan (1) Sepsis: (2) Acute pyelonephritis: Plan: Present on admission with L flank pain Met SIRS criteria on admisison with tachycardia and leukocytosis CT abd/pelvis showed left ureteral stent is in place.mild left hydronephrosis. Urothelial thickening is seen in the left renal pelvis and left ureter with surrounding inflammation. Currently on IV cefepime Urine cx no growth Blood cx pending urology on board -recommended to continue IV abx and IV hydration DM type 2 Well-controlled with Most recent hemoglobin A1c of 6.4 last June 2022 Metformin on hold Continue monitor BS BPH Continue Flomax DVT px on Lovenox Code status Full code Admission and Anticipated Discharge Date Admission Date: July 24, 2022 Subjective Pt was seen and examined for follow Lying in bed with no acute distress Pt said that flank pain improves Denies any chest pain, palpitation, dizziness, SOB and fever Review of Systems Review of Systems: All systems reviewed & are unremarkable except as noted in Subjective Physical Exam Physical Exam: General- No acute distress Head- atraumatic Eyes- PERRL, EOMI, ENT- oropharynx clear Neck- supple, no JVD Lungs- clear to auscultation Heart- regular rhythm; no murmur Abdomen- normal bowel sounds, soft, nontender Extremities- no calf tenderness Neuro- alert, oriented x 3; PERRL, EOMI; no facial palsy; no dysarthria Skin- warm & dry Results & Data Results & Data Vital Signs (Past 12 Hours) Vital Signs Temp Pulse Pulse Pulse Resp BP Pulse Ox 07/25/22 15:43 74 07/25/22 15:29 36.6 C 64 16 120/71 94 07/25/22 11:18 36.9 C 73 16 110/70 94 07/25/22 07:21 66 07/25/22 06:43 36.8 C 71 18 143/74 H 93 O2 Del Method 07/25/22 15:43 07/25/22 15:29 Room Air 07/25/22 11:18 Room Air 07/25/22 07:21 07/25/22 06:43 Room Air
[2022-07-26] MEDS: CEFEPIME 2,000 MG in SYRINGE 0 ML IV SCH ×2 (05:04→13:29)
[2022-07-26] MEDS: PROMETHAZINE HCL 12.5 MG in SODIUM CHLORIDE 0.9% 50 ML IV PRN (05:18)
[2022-07-26] MEDS: MoRPHine SULFATE 2 MG/ML CARP IV PRN (05:32)
[2022-07-26 07:02] LABS: Hemoglobin 13.6 g/dl (14.0-18.0); Mean Corpuscular Hemoglobin 30.2 pg (25.0-34.0); Mean Corpuscular Hgb Conc 33.2 g/dL (32.0-36.0); Mean Corpuscular Volume 90.9 fL (80.0-100.0); Mean Platelet Volume 11.3 fL (9.4-12.4); Platelet Count 188 K/uL (130-400); RDW Coefficient of Variation 12.9 % (11.5-14.5); RDW Standard Deviation 42.5 fL (36.4-46.3); Red Blood Count 4.51 M/uL (4.70-6.10); White Blood Count 9.53 K/ul (4.8-10.8)
[2022-07-26] MEDS: ENOXAPARIN INJ 40 MG/0.4 ML SYR SQ SCH (07:37)
[2022-07-26] MEDS: lisinopril 10 MG TAB PO SCH (07:37)
[2022-07-26] MEDS: TAMSULOSIN HCL 0.4 MG CAP PO SCH (07:37)
[2022-07-26] MEDS: INSULIN ASPART PER UNIT CHARGE SC SCH ×3 (09:03→17:07)
[2022-07-26] MEDS ORDERED: CEFDINIR 300 MG CAP PO SCH (16:00)
--- NOTE | 2022-07-26 16:22 | Discharge Summary ---
Date of Service July 26, 2022 Admission HPI Per Admitting Provider History obtained from patient and records. Medical history significant for hypertension, hyperlipidemia, DM 2 on oral medications, BPH, urolithiasis, migraine. Patient seen at [facility] urologist office last month for back pain complaints. Outpatient CT abdomen pelvis showed small left upper ureteral stone without hydronephrosis. Last week, patient underwent outpatient cystoscopy, left retrograde pyelography, left flexible ureteroscopy with laser lithotripsy and basket stone extraction and subsequent left ureteral stent placement at [facility] secondary to persistent back pain from stone. Postprocedure, patient noted tolerable left achy flank pain this, nausea, emesis symptoms with some hematuria. No fever, no chills. Worsening emesis and left flank pain symptoms No fever, no chills, no chest pain, no SOB. Patient unable to take home medications. SBP 190s upon arrival at the ER. Cefepime administered at the ER for complicated UTI. 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 Admission Exam Per Admitting Provider GENERAL: Comfortable, son, morbidly obese, no respiratory distress SKIN: Normal color, warm HEENT: Protection palpebral conjunctivae, no ptosis, dry buccal mucosa NECK : Supple, neck, no tenderness CHEST : CTA, no tenderness HEART : RRR, no obvious murmurs ABDOMEN: Some distention, nontender EXTREMITIES : Minimal LE swelling, no LE tenderness, no other conspicuous deformities noted NEUROLOGIC : Coherent, no facial asymmetry, no other gross focality Principal Diagnosis Sepsis: Acute pyelonephritis: Diabetes type 2 BPH Discharge Exam General- No acute distress Head- atraumatic Eyes- PERRL, EOMI, ENT- oropharynx clear Neck- supple, no JVD Lungs- clear to auscultation Heart- regular rhythm; no murmur Abdomen- normal bowel sounds, soft, nontender Extremities- no calf tenderness Neuro- alert, oriented x 3; PERRL, EOMI; no facial palsy; no dysarthria Skin- warm & dry Discharge Data Allergies Allergy/AdvReac Type Severity Reaction Status Date / Time acetaminophen [From Percocet] Allergy Severe itching Verified 01/18/19 08:28 amoxicillin [From Augmentin] Allergy Severe edema to Verified 01/18/19 08:28 face/lips/tongue, itching clavulanic acid Allergy Severe edema to Verified 01/18/19 08:28 [From Augmentin] face/lips/tongue, itching meclizine Allergy Severe HEART RACE Verified 01/18/19 08:28 oxycodone [From Percocet] Allergy Severe itching Verified 01/18/19 08:28 Consultations 07/24/22 23:56 Consult Urology Routine Ordered Studies 07/24/22 17:07 CT abd pelvis wo con Stat Laboratory Results WBC 9.53 K/ul (4.8-10.8) 07/26/22 06:25 RBC 4.51 M/uL (4.70-6.10) L 07/26/22 06:25 Hgb 13.6 g/dl (14.0-18.0) L 07/26/22 06:25 Hct 41.0 % (42.0-52.0) L 07/26/22 06:25 MCV 90.9 fL (80.0-100.0) 07/26/22 06:25 MCH 30.2 pg (25.0-34.0) 07/26/22 06:25 MCHC 33.2 g/dL (32.0-36.0) 07/26/22 06:25 RDW Std Deviation 42.5 fL (36.4-46.3) 07/26/22 06:25 RDW Coeff of Maricruz 12.9 % (11.5-14.5) 07/26/22 06:25 Plt Count 188 K/uL (130-400) 07/26/22 06:25 MPV 11.3 fL (9.4-12.4) 07/26/22 06:25 Immature Gran % (Auto) 0.3 % 07/25/22 06:44 Neut % (Auto) 76.0 % 07/25/22 06:44 Lymph % (Auto) 15.9 % 07/25/22 06:44 [place] % (Auto) 6.1 % 07/25/22 06:44 Eos % (Auto) 1.5 % 07/25/22 06:44 Baso % (Auto) 0.2 % 07/25/22 06:44 Neut # (Auto) 8.92 K/uL (1.40-6.50) H 07/25/22 06:44 Lymph # (Auto) 1.86 K/uL (1.2-3.4) 07/25/22 06:44 [place] # (Auto) 0.71 K/uL (0.11-0.59) H 07/25/22 06:44 Eos # (Auto) 0.18 K/uL (0-0.50) 07/25/22 06:44 Baso # (Auto) 0.02 K/uL (0-0.2) 07/25/22 06:44 Immature Gran # (Auto) 0.04 K/uL (0.01-0.20) 07/25/22 06:44 Sodium 138 mmol/L (136-145) 07/25/22 06:44 Potassium 4.4 mmol/L (3.5-5.1) 07/25/22 06:44 Chloride 106 mmol/L (98-107) 07/25/22 06:44 Carbon Dioxide 25 mmol/L (21-32) 07/25/22 06:44 Anion Gap 7 (3-11) 07/25/22 06:44 BUN 23 mg/dl (6-23) 07/25/22 06:44 Creatinine 0.99 mg/dl (0.6-1.4) 07/25/22 06:44 Est Cr Clr Drug Dosing 112.7 ml/min 07/25/22 06:44 Est GFR ( Amer) 102.5 ml/min 07/25/22 06:44 Est GFR (Non-Af Amer) 88.4 ml/min 07/25/22 06:44 BUN/Creatinine Ratio 23.2 (10-20) H 07/25/22 06:44 Glucose 125 mg/dl (70-99(Fasting)) H 07/25/22 06:44 POC Glucose 100 mg/dl (70-99) H 07/26/22 16:22 Lactate 1.0 mmol/L (0.4-2.0) 07/24/22 23:02 Calcium 9.0 mg/dl (8.6-10.3) 07/25/22 06:44 Magnesium 2.0 mg/dl (1.7-2.4) 07/24/22 19:30 Total Bilirubin 0.6 mg/dl (0.2-1.0) 07/24/22 19:30 AST 11 U/L (13-39) L 07/24/22 19:30 ALT 10 U/L (7-52) 07/24/22 19:30 Alkaline Phosphatase 70 U/L (34-104) 07/24/22 19:30 Troponin I High Sens 10.3 pg/ml (0-20) 07/24/22 19:30 Total Protein 7.7 gm/dl (6.0-8.3) 07/24/22 19:30 Albumin 4.4 gm/dl (3.4-5.0) 07/24/22 19: Globulin 3.3 gm/dl (2.5-4.0) 07/24/22 19:30 Albumin/Globulin Ratio 1.3 (0.9-2) 07/24/22 19: Lipase 13 U/L (11-82) 07/24/22 19:30 Urine Color Dark Yellow 07/24/22 21:13 Urine Appearance Turbid (Clear) A 07/24/22 21:13 Urine pH 7.5 (4.5-7.5) 07/24/22 21:13 Ur Specific [place] 1.023 (1.000-1.030) 07/24/22 21:13 Urine Protein 2+ (Negative) H 07/24/22 21:13 Urine Glucose (UA) Negative (Negative) 07/24/22 21:13 Urine Ketones 1+ (Negative) H 07/24/22 21:13 Urine Blood 3+ (Negative) H 07/24/22 21:13 Urine Nitrite Positive (Negative) A 07/24/22 21:13 Urine Bilirubin Negative (Negative) 07/24/22 21:13 Urine Urobilinogen Negative (Negative) 07/24/22 21:13 Ur Leukocyte Esterase 2+ (Negative) H 07/24/22 21:13 Urine WBC (Auto) 10-30 /hpf (0-5) H 07/24/22 21:13 Urine RBC (Auto) >30 /hpf (0-4) H 07/24/22 21:13 U Hyaline Cast (Auto) 5-10 /lpf (0-5) H 07/24/22 21:13 U Epithel Cells (Auto) >30 /lpf (0-5) H 07/24/22 21:13 Urine Bacteria (Auto) Negative (Negative) 07/24/22 21:13 SARS-CoV-2, RNA, NAAT NEGATIVE (NEGATIVE) 07/24/22 22:30 Impressions Abdomen/Pelvis CT 07/24/22 17:07 CT SCAN OF THE ABDOMEN AND PELVIS WITHOUT IV CONTRAST CLINICAL HISTORY: Left flank pain. COMPARISON STUDY: No priors. TECHNIQUE: CT scan of the abdomen and pelvis is performed from the lung bases to the proximal femora. Images are reviewed in the axial, sagittal, and coronal planes. IV contrast was not administered for this examination. A dose lowering technique was utilized adhering to the principles of ALARA. CT DOSE: 1035.98 mGycm FINDINGS: Lung bases: The heart is normal in size and without pericardial effusion. The lung bases are clear. Liver: The unenhanced liver is enlarged, measuring 18.8 cm in length. The liver demonstrates diffusely diminished attenuation indicating steatosis. There is no intrahepatic biliary ductal dilatation. Gallbladder: Unremarkable. Spleen: Normal in size and attenuation. Pancreas: Unremarkable. Adrenal glands: Unremarkable. Kidneys: The unenhanced kidneys are normal in size. A left ureteral stent is in place. No calcifications are identified in the left ureter along the course of the stent. There is mild left-sided hydronephrosis. Urothelial thickening is seen in the left renal pelvis and left ureter with surrounding inflammation. No renal calculi are identified in either kidney. There is no right-sided hydronephrosis. There is no evidence of contour deforming renal mass lesion. Abdominal vasculature: The abdominal aorta is normal in course and caliber noting scattered foci of atherosclerotic calcification. Bowel: There is moderate colonic diverticulosis without CT evidence of acute diverticulitis. No bowel obstruction is seen. The appendix is well-visualized and normal. Peritoneum: There is no intraperitoneal free air or abdominal ascites. There is a fat-containing umbilical hernia. Lymphadenopathy: None. Pelvic viscera: The prostate gland is diminutive and heterogeneous. The bladder wall appears mildly thickened and trabeculated suggesting chronic outlet obstruction. The bladder contains the distal end of a left ureteral stent. Foci of intraluminal gas are nonspecific and may be related to recent instrumentation. There is evidence of previous bilateral inguinal herniorrhaphy. Skeletal structures: No lytic or blastic lesions are seen. IMPRESSION: 1. A left ureteral stent is in place. No calcifications are seen in either kidney or in the left ureter along the course of the stent. 2. There is mild left hydronephrosis. 3. Urothelial thickening is seen in the left renal pelvis and left ureter with surrounding inflammation. This may be related to the presence of an indwelling catheter. Correlate with clinical findings and urinalysis for evidence of superimposed infection. 4. Hepatomegaly and hepatic steatosis. 5. Colonic diverticulosis without CT evidence of acute diverticulitis. 6. Additional findings as above. ACT 112: Negative or not required by law. Electronically signed by: Deep Darden M.D. 07/24/2022 6:24 PM Hospital Course (1) Sepsis: (2) Acute pyelonephritis: Present on admission with L flank pain Met SIRS criteria on admisison with tachycardia and leukocytosis CT abd/pelvis showed left ureteral stent is in place.mild left hydronephrosis. Urothelial thickening is seen in the left renal pelvis and left ureter with surrounding inflammation. Currently on IV cefepime Urine cx and blood cx no growth urology on board -recommended to continue abx and IV hydration Will transition to PO Cefdinir for additional 7 days I notified his urology Dr. Ayala about him being in the hospital since pt is scheduled for stent removal tomorrow Ok from Urology standpoint to discharge home Clinically stable DM type 2 Well-controlled with Most recent hemoglobin A1c of 6.4 last June 2022 Metformin on hold Continue monitor BS BPH Continue Flomax DVT px on Lovenox Code status Full code Disposition Ok to discharge home today Total Time Total Time Spent Total Time Spent (In Minutes): 35 minutes Discharge Plan Discharge Items Patient Disposition: Home - Self-Care Reason For Visit: SEPSIS Discharge Diagnosis: Sepsis: Acute pyelonephritis: Diabetes type 2 Activity: Resume your previous activity Non-emergency contact: Primary Care Provider and Urologist Call non-emergency contact if: you have any medication questions, your symptoms worsen and your temperature is above 101 Follow-up/Referrals: Michael Nelson DO [Primary Care Provider] - Diet: Carb Consistent or DM2 Addtl Attending Provider Instructions: Follow up wit your primary care provider with 1 week Follow up with your urology Dr. Ayala on 07/27 ( already scheduled) Complete the course of the antibiotic with cefdinir Seek medical attention if your symptoms worsening Pending Studies at Discharge: No Stand-Alone Forms: My [facility], Smoking Cessation Medications and DC Order Prescriptions: New cefdinir 300 mg Capsule 300 mg PO Q12H 7 Days Qty: 14 0RF Continued tamsulosin 0.4 mg capsule 0.4 mg PO DAILY lisinopril 10 mg tablet 10 mg PO DAILY sumatriptan succinate 100 mg tablet 100 mg PO UD PRN (Reason: Migraine Headache) meloxicam 15 mg tablet 15 mg PO QAM ondansetron 4 mg tablet,disintegrating 0.4 mg translingual Q8 PRN (Reason: Nausea) metformin 500 mg tablet extended release 24 hr 500 mg PO BIDM Discharge Orders: Discharge Order (Routine); Ordered 07/26/22 Ordered By: Dante Kohler Admission Data Admit Date/Time: 07/24/22 23:03 Attending Provider: Dante Kohler Admit Provider: Anthony Arnett Primary Care Provider: Michael Nelson Other Providers: Moise Smith ; Arturo Lazo ; Christiano Harkins ; Aniya Mendoza ; Mitch Trevino ; Rosemary Anand Melissa A. ; Bob Rodríguez ; Johanna Ramos ; Nanette Javier ; Rylan Strange ; Meliton Bermudez Other Interventions: Discharge Summary Assessment (RN) Last Done: 07/26/22 17:44
[2022-07-26] MEDS ORDERED: INSULIN ASPART PER UNIT CHARGE SC ONE (18:20)
== END 2022-07-26 18:21 | disposition home or self-care (01) | DRG 872 ==
LOC: ED 16:45 → 2W 23:03

== ENCOUNTER 2023-11-02 13:08 | Inpatient (IN) ==
[2023-11-02] MEDS: KETOROLAC TROMETHAMINE 15 MG/ML VIAL IV STA (13:38)
[2023-11-02] MEDS: ONDANSETRON INJ 2 MG/ML 2 ML VIAL IV STA ×2 (13:38→15:27)
[2023-11-02] MEDS: SODIUM CHLORIDE 0.9% 500 ML IV STA (13:38)
--- NOTE | 2023-11-02 13:51 | Emergency Department Note ---
History of Present Illness General Chief complaint: Flank Pain Stated complaint: VOMIT, PROCEDURE STINT, LT FLANK PAIN Time Seen by Provider: 11/02/23 13:47 History of Present Illness Maximum Pain Intensity: 6 Patient is a 53-year-old male with history significant for kidney stones, hypertension, diabetes, migraine disorder, who presents to the emergency department for evaluation of acute left flank pain. Symptoms started around 0800 today. He underwent a right lithotripsy and stent placement for kidney stones at [facility] yesterday. He woke up around 0600 today and was feeling well. He subsequently developed left upper back pain. He currently rates his pain a 6/10. He is nauseous and has vomited. He was unable to keep anything down. He did try taking tramadol, but vomited this back up. He put a call into his urology office, but due to the pain, could not wait and thus presented here. He did hear from them subsequently, and when asked, they did report that he had stones on the left side which the patient was not aware of. No chest pain or shortness of breath. He did void this morning and reports that the urine was clearing up, no significant hematuria. No dysuria. Home Medications Medication Instructions Recorded Confirmed Type lisinopril 10 mg tablet 10 mg PO DAILY 07/24/22 11/02/23 History meloxicam 15 mg tablet 15 mg PO QAM 07/24/22 11/02/23 History metformin 500 mg tablet,extended 500 mg PO BIDM 07/24/22 11/02/23 History release 24 hr ondansetron 4 mg disintegrating 0.4 mg translingual Q8 PRN Nausea 07/24/22 11/02/23 History tablet sumatriptan succinate 100 mg tablet 100 mg PO UD PRN Migraine Headache 07/24/22 11/02/23 History tamsulosin 0.4 mg capsule 0.4 mg PO DAILY 07/24/22 11/02/23 History furosemide 20 mg tablet 20 mg PO QAM 11/02/23 11/02/23 History tramadol 50 mg tablet 50 mg PO UD PRN Pain 11/02/23 11/02/23 History Allergies Allergy/AdvReac Type Severity Reaction Status Date / Time acetaminophen [From Percocet] Allergy Severe itching Verified 11/02/23 17:27 amoxicillin [From Augmentin] Allergy Severe edema to Verified 11/02/23 17:27 face/lips/tongue, itching clavulanic acid Allergy Severe edema to Verified 01/18/19 08:28 [From Augmentin] face/lips/tongue, itching meclizine Allergy Severe HEART RACE Verified 01/18/19 08:28 oxycodone [From Percocet] Allergy Severe itching Verified 01/18/19 08:28 Past Med/Surg History Problem List (Updated 11/02/23 @ 18:32 by Yaw Fuentes) Left ureteral stone (Acute) Acute left flank pain (Acute) Colon cancer screening Encounter for pre-operative examination Kidney stones Pain, dental (Acute) Right otitis externa (Acute) Right otitis externa (Acute) Acute otitis media, right (Acute) Migraine Acute allergic reaction (Acute) Medical History (Updated 11/02/23 @ 18:32 by Yaw Fuentes) Acute pyelonephritis Obesity, morbid, BMI 40.0-49.9 Osteoarthritis Kidney stones Diverticular disease Migraine Hyperlipidemia no meds Sleep apnea sleep study test "inclusive"--no device Asthma inhaler prn Surgical History Status post tendon repair right hand History of arthroscopy of right knee Hx of vasectomy History of right inguinal hernia repair History of bilateral inguinal hernia repair History of tooth extraction History of wisdom tooth extraction History of tonsillectomy and adenoidectomy Family History Mother Family history of diabetes mellitus Other No family history of adverse response to anesthesia Social History Smoking Status: Never smoker Second Hand Exposure: Yes ( smokes); Do You Dip or Chew Tobacco: No; Hx Alcohol Use: Yes Alcohol type: beer and hard liquor Hx Substance Use: No Preferred Language: Egyptian Communication Ability: Effective Underwriting Specialist Required: No Beliefs That Will Affect Care: None Current Living Situation: Family Feels Safe at Home: Yes Assistive Devices: Glasses Review of Systems A total of 10 systems reviewed and were otherwise negative Physical Exam Vital Signs Vital Signs - 24 hr 11/02/23 13:17 11/02/23 15:26 11/02/23 15:57 Temperature 36.6 C Temperature Source Skin Pulse Rate 95 H 90 Pulse Rate [Apical] 78 Respiratory Rate 20 16 Respiratory Effort / Characteristics Non-Labored Respiratory Depth Normal Respiratory Pattern Blood Pressure 208/105 H Blood Pressure [Right Arm] 174/105 H Blood Pressure Mean 139 Blood Pressure Mean [Right Arm] 128 Pulse Oximetry 96 98 Oxygen Delivery Method Room Air Room Air Sepsis Recent Fever Within 48 Hours No Sepsis New/Unexplained Change in Mental Status No Sepsis Action Taken by Nursing No Action Required 11/02/23 17:36 Temperature Temperature Source Pulse Rate Pulse Rate [Apical] 80 Respiratory Rate 16 Respiratory Effort / Characteristics Non-Labored Spontaneous Respiratory Depth Normal Respiratory Pattern Regular Blood Pressure Blood Pressure [Right Arm] 123/80 Blood Pressure Mean Blood Pressure Mean [Right Arm] 94 Pulse Oximetry 97 Oxygen Delivery Method Room Air Sepsis Recent Fever Within 48 Hours Sepsis New/Unexplained Change in Mental Status Sepsis Action Taken by Nursing CONSTITUTIONAL: Patient is an obese, uncomfortable appearing 53-year-old male who is awake and alert and laying on the gurney. EYES: Pupils equal, round, reactive to light and accommodation. EOMs intact without nystagmus. Sclera are anicteric. CARDIOVASCULAR: Regular rate and rhythm. Peripheral pulses easy to palpable. RESPIRATORY: Breath sounds equal and clear to auscultation. GI: Bowel sounds are present. Abdomen is soft, nontender, nondistended. No organomegaly. No pulsatile masses. No guarding or rebound. Left CVA tenderness. MUSCULOSKELETAL: Full range of motion of extremities x 4 with good strength. No cyanosis, edema, joint tenderness or swelling. No deformity. INTEGUMENTARY: No lesions or rash, normal skin turgor. Course Course The patient was seen and assessed as above. External medical records are reviewed. Patient presents to the emergency department by evaluation of acute left flank pain, nausea and vomiting, reminiscent of renal colic. He just had a right-sided stent and lithotripsy yesterday. Critical pathways have been placed from triage including CBC with differential, CMP and urinalysis. He was given a 500 cc bolus of normal saline solution, Toradol 15 mg IV and Zofran 4 mg IV. After discussion with the triage staff, I did order a CT scan of the abdomen pelvis with IV contrast. Diagnostics, as interpreted by me: Laboratory studies: White count 19,100 with left shift. H&H normal. No electrolyte imbalance. BUN 22, creatinine 1.21. No transaminitis. Patient was able to provide a urine sample after additional IV fluid noting 3+ blood, 1+ leukocyte esterase, 11-20 WBCs and greater than 30 RBCs. No bacteria seen however urine culture is pending. Imaging studies: CT scan of the abdomen and pelvis with IV contrast notes mild left-sided hydronephrosis secondary to an obstructing 4 mm left mid ureteral stone. Bilateral nephrolithiasis noted. Right ureteral stent appears to be in appropriate position. No other acute intra-abdominal findings. Patient was reassessed frequently. When I did initially evaluate him, he was feeling comfortable with IV Toradol and declined any medication for discomfort, but nursing staff did contact me when patient returned from CT that he was feeling nauseous and pain was increasing. He was given an additional Zofran 4 mg IV and morphine 6 mg IV. He was given a liter bolus of normal saline solution. CT scan findings and laboratory studies were reviewed with the patient. He was more comfortable, and at this time declined medication. He had yet to provide a urine sample. Patient was reassessed after he had provided a urine sample. Urine was as above and is concerning for infection versus contamination. Given his history, I did feel that it was appropriate to cover with antibiotics and ordered ceftriaxone 2 g IV. Patient has tolerated cephalosporins in the past and discussed this with Arturo Crowder, Pharm.D. Patient was still uncomfortable, he was ordered a second dose of morphine 6 mg IV. At this point, he is still requiring narcotics for pain, and question whether he might benefit from admission/observation for pain management and IV antibiotics. Reviewed this with Dr. Clement. Discussed this with the patient and reviewed other options and after review of the information above and other included data, I feel the patient would benefit from inpatient care. Patient was reviewed with the ED case management director [facility] and [facility]. Differential diagnosis: UTI, pyelonephritis, renal colic, diverticulitis, shingles, hernia, musculoskeletal pain, bowel obstruction, perforation, among others. Administered Medications Discontinued Medications Sodium Chloride (Nss) 500 mls @ 999 mls/hr IV .Q31M STA Stop: 11/02/23 13:52 Last Infusion: 11/02/23 18:01 Dose: Infused Documented By: Admin: 11/02/23 13:38 Dose: 999 mls/hr Documented By: SYLVESTER Sodium Chloride (Nss) 1,000 mls @ 999 mls/hr IV .Q1H1M FEMI Stop: 11/02/23 16:17 Last Infusion: 11/02/23 18:01 Dose: Infused Documented By: Admin: 11/02/23 15:28 Dose: 999 mls/hr Documented By: SYLVESTER Ceftriaxone Sodium (Rocephin) 2,000 mg in 50 mls @ 100 mls/hr IV NOW STA Stop: 11/02/23 17:58 Last Admin: 11/02/23 18:00 Dose: 100 mls/hr Documented By: JANE Ioversol (Optiray 320 100ml) 93 ml IV ONCE ONE Stop: 11/02/23 14:44 Last Admin: 11/02/23 14:41 Dose: 93 ml Documented By: LAVINIA Ketorolac Tromethamine (Ketorolac Tromethamine 15 Mg/Ml Vial) 15 mg IV ONE STA Stop: 11/02/23 13:23 Last Admin: 11/02/23 13:38 Dose: 15 mg Documented By: SYLVESTER Morphine Sulfate (Morphine Sulfate 10 Mg/Ml Carp/Vial) 6 mg IV NOW STA Stop: 11/02/23 15:13 Last Admin: 11/02/23 15:27 Dose: 6 mg Documented By: SYLVESTER Morphine Sulfate (Morphine Sulfate 10 Mg/Ml Carp/Vial) 6 mg IV NOW STA Stop: 11/02/23 17:30 Last Admin: 11/02/23 17:59 Dose: 6 mg Documented By: JANE Ondansetron HCl (Ondansetron Inj 2 Mg/Ml 2 Ml Vial) 4 mg IV NOW STA Stop: 11/02/23 13:23 Last Admin: 11/02/23 13:38 Dose: 4 mg Documented By: SYLVESTER Ondansetron HCl (Ondansetron Inj 2 Mg/Ml 2 Ml Vial) 4 mg IV NOW STA Stop: 11/02/23 15:17 Last Admin: 11/02/23 15:27 Dose: 4 mg Documented By: SYLVESTER Medical Decision Making Differential Diagnosis See ED course. Medical Records Attestation: I reviewed the patient's medical records. Home Medications Current Medication List: was personally reviewed by me Laboratory Data Attestation: I reviewed the patient's lab results. 11/02/23 13:10 11/02/23 13:10 Lab Results 11/02/23 11/02/23 Range/Units 13:10 16:40 WBC 19.09 H (4.8-10.8) K/ul RBC 5.05 (4.70-6.10) M/uL Hgb 15.3 (14.0-18.0) g/dl Hct 44.8 (42.0-52.0) % MCV 88.7 (80.0-100.0) fL MCH 30.3 (25.0-34.0) pg MCHC 34.2 (32.0-36.0) g/dL RDW Std Deviation 40.6 (36.4-46.3) fL RDW Coeff of [place] 12.5 (11.5-14.5) % Plt Count 218 (130-400) K/uL MPV 11.7 (9.4-12.4) fL Immature Gran % (Auto) 0.7 % Neut % (Auto) 87.3 % Lymph % (Auto) 6.1 % [place] % (Auto) 5.7 % Eos % (Auto) 0.1 % Baso % (Auto) 0.1 % Neut # (Auto) 16.67 H (1.40-6.50) K/uL Lymph # (Auto) 1.17 L (1.20-3.40) K/uL [place] # (Auto) 1.09 H (0.11-0.59) K/uL Eos # (Auto) 0.01 (0.00-0.50) K/uL Baso # (Auto) 0.02 (0.00-0.20) K/uL Immature Gran # (Auto) 0.13 (0.01-0.20) K/uL Sodium 138 (136-145) mmol/L Potassium 4.2 (3.5-5.1) mmol/L Chloride 101 (98-107) mmol/L Carbon Dioxide 26 (21-32) mmol/L Anion Gap 11 (3-11) BUN 22 (6-23) mg/dl Creatinine 1.21 (0.6-1.4) mg/dl Est Cr Clr Drug Dosing 94.5 ml/min Est GFR ( Amer) 79.9 ml/min Est GFR (Non-Af Amer) 68.9 ml/min BUN/Creatinine Ratio 18.2 (10-20) Glucose 145 H (70-99(Fasting)) mg/dl Calcium 9.3 (8.6-10.3) mg/dl Total Bilirubin 0.4 (0.2-1.0) mg/dl AST 16 (13-39) U/L ALT 19 (7-52) U/L Alkaline Phosphatase 63 (34-104) U/L Total Protein 7.7 (6.0-8.3) gm/dl Albumin 4.5 (3.4-5.0) gm/dl Globulin 3.2 (2.5-4.0) gm/dl Albumin/Globulin Ratio 1.4 (0.9-2) Urine Color Yellow Urine Appearance Clear (Clear) Urine pH 6.5 (4.5-7.5) Ur Specific [place] 1.044 H (1.000-1.030) Urine Protein 1+ H (Negative) Urine Glucose (UA) Negative (Negative) Urine Ketones Negative (Negative) Urine Blood 3+ H (Negative) Urine Nitrite Negative (Negative) Urine Bilirubin Negative (Negative) Urine Urobilinogen Negative (Negative) Ur Leukocyte Esterase 1+ H (Negative) Urine WBC (Auto) 11-20 H (0-5) /hpf Urine RBC (Auto) >20 H (0-2) /hpf U Hyaline Cast (Auto) 3-5 H (0-2) /lpf U Epithel Cells (Auto) 0-2 (0-2) /hpf Urine Bacteria (Auto) None Seen (None Seen) Imaging Data Attestation: I personally reviewed and interpreted this imaging study as follows: Radiologist's Impression: Abdomen/Pelvis CT 11/02/23 13:[address] WITH IV CONTRAST CT DOSE: 1549.61 mGy.cm HISTORY: LEFT FLANK PAIN, S/P RIGHT LITHO/STENT YESTERDAY TECHNIQUE: Multiaxial CT images of the abdomen and pelvis were performed following the use of intravenous contrast. A dose lowering technique was utilized adhering to the principles of ALARA. COMPARISON STUDY: Abdomen and pelvis CT 07/24/2022. FINDINGS: The lung bases are clear. No pneumoperitoneum. No pneumatosis. No acute fractures. There is a tiny fat-containing umbilical hernia. Small fat- containing right inguinal hernia. Suggestion of prior bilateral inguinal hernia repair. Mild hepatic steatosis. Stable subcentimeter hypodense lesion within the left hepatic lobe. This is especially too small to characterize but statistically represents a cyst. The pancreas, spleen, adrenal glands unremarkable. The main portal vein is patent. Normal caliber abdominal aorta. No retroperitoneal or pelvic lymphadenopathy. There are 2 stones within the lower pole the right kidney with the largest measuring 4 mm. There is a punctate stone within the upper pole the left kidney. A right ureteral stent appears in good position. No right ureteral calculi. No right-sided hydronephrosis. Mild left perinephric edema. There is mild left hydronephrosis secondary to an obstructing 4 mm stone within the mid left ureter on image 221. Small amount of gas within the bladder lumen is likely due to the prior segmentation. Colonic diverticulosis. No evidence for acute diverticulitis. No bowel wall thickening or obstruction. Normal appendix. IMPRESSION: 1. Mild left hydronephrosis secondary to an obstructing 4 mm stone within the mid left ureter. 2. Bilateral nephrolithiasis. 3. A right ureteral stent appears in good position. 4. Colonic diverticulosis. No evidence for acute diverticulitis. 5. Additional findings as described above. ACT 112: Negative or not required by law. Electronically signed by: Blaise Eason M.D. 11/02/2023 3:07 PM MDM Narrative See ED course. Impression & Plan Acute left flank pain, Left ureteral stone Discharge Plan Visit Data Chief Complaint: Flank Pain Stated Complaint: VOMIT, PROCEDURE STINT, LT FLANK PAIN ED Provider: Trupti Clement ED Midlevel Provider: Yaw Fuentes Discharge Problem: Acute left flank pain, Left ureteral stone Patient Disposition: Being Evaluated by Hospitalist Forms Stand Alone Forms: [facility] Prescriptions Prescriptions: No Action tamsulosin 0.4 mg capsule 0.4 mg PO DAILY lisinopril 10 mg tablet 10 mg PO DAILY sumatriptan succinate 100 mg tablet 100 mg PO UD PRN (Reason: Migraine Headache) meloxicam 15 mg tablet 15 mg PO QAM ondansetron 4 mg tablet,disintegrating 0.4 mg translingual Q8 PRN (Reason: Nausea) metformin 500 mg tablet extended release 24 hr 500 mg PO BIDM tramadol 50 mg tablet 50 mg PO UD PRN (Reason: Pain) furosemide 20 mg tablet 20 mg PO QAM Referrals Referrals: Michael Nelson DO [Primary Care Provider] -
[2023-11-02 14:15] LABS: Basophils # (auto) 0.02 K/uL (0.00-0.20); Basophils % (auto) 0.1 %; Eosinophils # (auto) 0.01 K/uL (0.00-0.50); Eosinophils % (auto) 0.1 %; Hematocrit (blood only) 44.8 % (42.0-52.0); Hemoglobin 15.3 g/dl (14.0-18.0); Immature Granulocytes # (auto) 0.13 K/uL (0.01-0.20); Immature Granulocytes % (auto) 0.7 %; Lymphocytes # (auto) 1.17 K/uL (1.20-3.40); Lymphocytes % (auto) 6.1 %; Mean Corpuscular Hemoglobin 30.3 pg (25.0-34.0); Mean Corpuscular Hgb Conc 34.2 g/dL (32.0-36.0); Mean Corpuscular Volume 88.7 fL (80.0-100.0); Mean Platelet Volume 11.7 fL (9.4-12.4); Monocytes # (auto) 1.09 K/uL (0.11-0.59); Monocytes % (auto) 5.7 %; Neutrophils # (auto) 16.67 K/uL (1.40-6.50); Neutrophils % (auto) 87.3 %; Platelet Count 218 K/uL (130-400); RDW Coefficient of Variation 12.5 % (11.5-14.5); RDW Standard Deviation 40.6 fL (36.4-46.3); Red Blood Count 5.05 M/uL (4.70-6.10); White Blood Count 19.09 K/ul (4.8-10.8)
[2023-11-02 14:30] LABS: Albumin Globulin Ratio 1.4 (0.9-2); Albumin Level 4.5 gm/dl (3.4-5.0); BUN Creatinine Ratio 18.2 (10-20); Bilirubin,Total 0.4 mg/dl (0.2-1.0); Calcium 9.3 mg/dl (8.6-10.3); Creatinine Clr Calc Pharmacy 94.5 ml/min; Est GFR (African American) 79.9 ml/min; Est GFR (Non-African American) 68.9 ml/min; Globulin 3.2 gm/dl (2.5-4.0); Potassium 4.2 mmol/L (3.5-5.1); Total Protein 7.7 gm/dl (6.0-8.3)
[2023-11-02] MEDS: OPTIRAY 320 100ml IV ONE (14:41)
--- NOTE | 2023-11-02 15:09 | CT Scan Report ---
ABDOMEN AND PELVIS CT WITH IV CONTRAST CT DOSE: 1549.61 mGy.cm HISTORY: LEFT FLANK PAIN, S/P RIGHT LITHO/STENT YESTERDAY TECHNIQUE: Multiaxial CT images of the abdomen and pelvis were performed following the use of intrave nous contrast. A dose lowering technique was utilized adhering to the principles of ALARA. COMPARISON STUDY: Abdomen and pelvis CT 07/24/2022. FINDINGS: The lung bases are clear. No pneumoperitoneum. No pneumatosis. No acute fractures. There is a tiny fat-containing umbilical hernia. Small fat-containing right inguinal hernia. Suggestion of pr ior bilateral inguinal hernia repair. Mild hepatic steatosis. Stable subcentimeter hypodense lesion w ithin the left hepatic lobe. This is especially too small to characterize but statistically represent s a cyst. The pancreas, spleen, adrenal glands unremarkable. The main portal vein is patent. Normal c aliber abdominal aorta. No retroperitoneal or pelvic lymphadenopathy. There are 2 stones within the l ower pole the right kidney with the largest measuring 4 mm. There is a punctate stone within the uppe r pole the left kidney. A right ureteral stent appears in good position. No right ureteral calculi. N o right-sided hydronephrosis. Mild left perinephric edema. There is mild left hydronephrosis secondar y to an obstructing 4 mm stone within the mid left ureter on image 221. Small amount of gas within th e bladder lumen is likely due to the prior segmentation. Colonic diverticulosis. No evidence for acut e diverticulitis. No bowel wall thickening or obstruction. Normal appendix. IMPRESSION: 1. Mild left hydronephrosis secondary to an obstructing 4 mm stone within the mid left ureter. 2. Bilateral nephrolithiasis. 3. A right ureteral stent appears in good position. 4. Colonic diverticulosis. No evidence for acute diverticulitis. 5. Additional findings as described above. ACT 112: Negative or not required by law. Electronically signed by: Blaise Eason M.D. 11/02/2023 3:07 PM
[2023-11-02] MEDS: MoRPHine SULFATE 10 MG/ML CARP/VIAL IV STA ×2 (15:27→17:59)
[2023-11-02] MEDS: SODIUM CHLORIDE 0.9% 1,000 ML IV SCH ×2 (15:28→20:59)
[2023-11-02 17:07] LABS: Appearance Urine Clear (Clear); Bacteria Urine Automated None Seen (None Seen); Bilirubin Urine Negative (Negative); Blood Urine 3+ (Negative); Color Urine Yellow; Epithelial Cell Urine Auto 0-2 /hpf (0-2); Glucose Urine UA Negative (Negative); Ketones Urine Negative (Negative); Leukocyte Esterase Urine 1+ (Negative); Nitrite Urine Negative (Negative); Protein Urine 1+ (Negative); RBC Urine Automated >20 /hpf (0-2); Specific Gravity Urine 1.044 (1.000-1.030); Urobilinogen Urine Negative (Negative); pH Urine 6.5 (4.5-7.5)
--- NOTE | 2023-11-02 17:47 | Emergency Department Note ---
ED Visit Note I was consulted by the Advanced Practice Provider. I personally approved the management plan and take responsibility for the patient management. -History/Physical/Personally seeing the patient -MDM -I independently interpreted the following studies:Studies and results .
[2023-11-02] MEDS: cefTRIAXone SODIUM 2,000 MG/50 ML BAG IV STA (18:00)
--- NOTE | 2023-11-02 19:05 | History & Physical Report ---
Date of Service November 02, 2023 Assessment & Plan (1) Acute pyelonephritis: Plan: Continue gentle IV fluids Continue IV CTX Await culture results Present on Admission?: Yes (2) Acute left flank pain: Plan: Given IV Toradol and MS with good results Continue analgesia as indicated Present on Admission?: Yes (3) Left ureteral stone: Plan: Will consult Urology. May need stent on left Present on Admission?: Yes (4) Kidney stones: (5) Nausea & vomiting: (6) Hydronephrosis concurrent with and due to calculi of kidney and ureter: Plan: Continue IV Zofran prn Clear liquids for now Advance to [facility] as able (7) HTN (hypertension): Plan: Continue home BP med Follow BPs I have spent a total of 75 minutes coordinating, documenting and providing care for the patient. History of Present Illness Chief Complaint: Nausea, Emesis, Left flank pain, fever Primary Care Provider: Michael Nelson DO Allergies Allergy/AdvReac Type Severity Reaction Status Date / Time acetaminophen [From Percocet] Allergy Severe itching Verified 11/02/23 17:27 amoxicillin [From Augmentin] Allergy Severe edema to Verified 11/02/23 17:27 face/lips/tongue, itching clavulanic acid Allergy Severe edema to Verified 01/18/19 08:28 [From Augmentin] face/lips/tongue, itching meclizine Allergy Severe HEART RACE Verified 01/18/19 08:28 oxycodone [From Percocet] Allergy Severe itching Verified 01/18/19 08:28 Home Medications Medication Instructions Recorded Confirmed Type lisinopril 10 mg tablet 10 mg PO DAILY 07/24/22 11/02/23 History meloxicam 15 mg tablet 15 mg PO QAM 07/24/22 11/02/23 History metformin 500 mg tablet,extended 500 mg PO BIDM 07/24/22 11/02/23 History release 24 hr ondansetron 4 mg disintegrating 0.4 mg translingual Q8 PRN Nausea 07/24/22 11/02/23 History tablet sumatriptan succinate 100 mg tablet 100 mg PO UD PRN Migraine Headache 07/24/22 11/02/23 History tamsulosin 0.4 mg capsule 0.4 mg PO DAILY 07/24/22 11/02/23 History furosemide 20 mg tablet 20 mg PO QAM 11/02/23 11/02/23 History tramadol 50 mg tablet 50 mg PO UD PRN Pain 11/02/23 11/02/23 History Past Med/Surg History Problem List (Updated 11/02/23 @ 19:35 by Jerardo Matos DO) HTN (hypertension) Hydronephrosis concurrent with and due to calculi of kidney and ureter Acute pyelonephritis Nausea & vomiting Left ureteral stone (Acute) Acute left flank pain (Acute) Colon cancer screening Encounter for pre-operative examination Kidney stones Pain, dental (Acute) Right otitis externa (Acute) Right otitis externa (Acute) Acute otitis media, right (Acute) Migraine Acute allergic reaction (Acute) Medical History (Updated 11/02/23 @ 19:35 by Jerardo Matos DO) Obesity, morbid, BMI 40.0-49.9 Osteoarthritis Kidney stones Diverticular disease Migraine Hyperlipidemia no meds Sleep apnea sleep study test "inclusive"--no device Asthma inhaler prn Surgical History Status post tendon repair right hand History of arthroscopy of right knee Hx of vasectomy History of right inguinal hernia repair History of bilateral inguinal hernia repair History of tooth extraction History of wisdom tooth extraction History of tonsillectomy and adenoidectomy Family History Mother Family history of diabetes mellitus Other No family history of adverse response to anesthesia Social History Smoking Status: Never smoker Second Hand Exposure: Yes ( smokes); Do You Dip or Chew Tobacco: No; Hx Alcohol Use: Yes Alcohol type: beer and hard liquor Hx Substance Use: No Preferred Language: Czech Communication Ability: Effective Principal Investigator Required: No Beliefs That Will Affect Care: None Current Living Situation: Family Feels Safe at Home: Yes Assistive Devices: Glasses Review of Systems Review of Systems: Constitutional-fever no weight loss Eyes- no acute visual changes ENT- no sinus drainage; no pharyngitis Pulmonary- no cough, no wheezing, no shortness of breath Cardiac- no chest pain, no palpitations, no orthopnea, no dependent edema GI-positive nausea and vomiting, no diarrhea, no melena, no hematochezia - no dysuria, mild hematuria Musculoskeletal-severe left flank pain Derm- no rashes, no new skin lesions, no changing skin lesions Hematologic- no unusual bruising, no history of unusual bleeding Lymphatics- no adenopathy Endocrine-negative Neuro- no headaches, no focal neurologic symptoms Psych- no anxiety, no depression Physical Exam Physical Exam: General- adult male seen in bed. More comfortable at present Head- atraumatic Eyes- PERRL, EOMI, anicteric ENT- oropharynx clear Neck- supple, no JVD, no adenopathy, no thyromegaly; carotids +2/2, no bruits appreciated Lungs- clear to auscultation and percussion Heart- regular rhythm; no murmur, no gallop, no rub appreciated Abdomen- normal bowel sounds, soft, nontender, no masses or hepatosplenomegaly, positive Floyd sign left Extremities-trace edema, no calf tenderness; peripheral pulses intact Neuro- alert, oriented x 3; PERRL, EOMI; no facial palsy; no dysarthria; motor 5/5 bilaterally; no cogwheel rigidity; patellar DTRs +2/2; toes downgoing bilaterally; finger to nose intact bilaterally Skin- warm & dry Results & Data Results & Data Vital Signs (Past 12 Hours) Vital Signs Temp Pulse Pulse Resp BP BP Pulse Ox 11/02/23 17:36 80 16 123/80 97 11/02/23 15:57 90 11/02/23 15:26 78 16 174/105 H 98 11/02/23 13:17 36.6 C 95 H 20 208/105 H 96 O2 Del Method 11/02/23 17:36 Room Air 11/02/23 15:57 11/02/23 15:26 Room Air 11/02/23 13:17 Room Air Laboratory Results Laboratory Results WBC 19.09 K/ul (4.8-10.8) H 11/02/23 13:10 RBC 5.05 M/uL (4.70-6.10) 11/02/23 13:10 Hgb 15.3 g/dl (14.0-18.0) 11/02/23 13:10 Hct 44.8 % (42.0-52.0) 11/02/23 13:10 MCV 88.7 fL (80.0-100.0) 11/02/23 13:10 MCH 30.3 pg (25.0-34.0) 11/02/23 13:10 MCHC 34.2 g/dL (32.0-36.0) 11/02/23 13:10 RDW Std Deviation 40.6 fL (36.4-46.3) 11/02/23 13:10 RDW Coeff of Maricruz 12.5 % (11.5-14.5) 11/02/23 13:10 Plt Count 218 K/uL (130-400) 11/02/23 13:10 MPV 11.7 fL (9.4-12.4) 11/02/23 13:10 Immature Gran % (Auto) 0.7 % 11/02/23 13:10 Neut % (Auto) 87.3 % 11/02/23 13:10 Lymph % (Auto) 6.1 % 11/02/23 13:10 Pettis % (Auto) 5.7 % 11/02/23 13:10 Eos % (Auto) 0.1 % 11/02/23 13:10 Baso % (Auto) 0.1 % 11/02/23 13:10 Neut # (Auto) 16.67 K/uL (1.40-6.50) H 11/02/23 13:10 Lymph # (Auto) 1.17 K/uL (1.20-3.40) L 11/02/23 13:10 Pettis # (Auto) 1.09 K/uL (0.11-0.59) H 11/02/23 13:10 Eos # (Auto) 0.01 K/uL (0.00-0.50) 11/02/23 13:10 Baso # (Auto) 0.02 K/uL (0.00-0.20) 11/02/23 13:10 Immature Gran # (Auto) 0.13 K/uL (0.01-0.20) 11/02/23 13:10 Sodium 138 mmol/L (136-145) 11/02/23 13:10 Potassium 4.2 mmol/L (3.5-5.1) 11/02/23 13:10 Chloride 101 mmol/L (98-107) 11/02/23 13:10 Carbon Dioxide 26 mmol/L (21-32) 11/02/23 13:10 Anion Gap 11 (3-11) 11/02/23 13:10 BUN 22 mg/dl (6-23) 11/02/23 13:10 Creatinine 1.21 mg/dl (0.6-1.4) 11/02/23 13:10 Est Cr Clr Drug Dosing 94.5 ml/min 11/02/23 13:10 Est GFR ( Amer) 79.9 ml/min 11/02/23 13:10 Est GFR (Non-Af Amer) 68.9 ml/min 11/02/23 13:10 BUN/Creatinine Ratio 18.2 (10-20) 11/02/23 13:10 Glucose 145 mg/dl (70-99(Fasting)) H 11/02/23 13:10 Calcium 9.3 mg/dl (8.6-10.3) 11/02/23 13:10 Total Bilirubin 0.4 mg/dl (0.2-1.0) 11/02/23 13:10 AST 16 U/L (13-39) 11/02/23 13:10 ALT 19 U/L (7-52) 11/02/23 13:10 Alkaline Phosphatase 63 U/L (34-104) 11/02/23 13:10 Total Protein 7.7 gm/dl (6.0-8.3) 11/02/23 13:10 Albumin 4.5 gm/dl (3.4-5.0) 11/02/23 13:10 Globulin 3.2 gm/dl (2.5-4.0) 11/02/23 13:10 Albumin/Globulin Ratio 1.4 (0.9-2) 11/02/23 13:10 Urine Color Yellow 11/02/23 16:40 Urine Appearance Clear (Clear) 11/02/23 16:40 Urine pH 6.5 (4.5-7.5) 11/02/23 16:40 Ur Specific Wynne 1.044 (1.000-1.030) H 11/02/23 16:40 Urine Protein 1+ (Negative) H 11/02/23 16:40 Urine Glucose (UA) Negative (Negative) 11/02/23 16:40 Urine Ketones Negative (Negative) 11/02/23 16:40 Urine Blood 3+ (Negative) H 07/02/24 16:40 Urine Nitrite Negative (Negative) 11/02/23 16:40 Urine Bilirubin Negative (Negative) 11/02/23 16:40 Urine Urobilinogen Negative (Negative) 11/02/23 16:40 Ur Leukocyte Esterase 1+ (Negative) H 11/02/23 16:40 Urine WBC (Auto) 11-20 /hpf (0-5) H 11/02/23 16:40 Urine RBC (Auto) >20 /hpf (0-2) H 11/02/23 16:40 U Hyaline Cast (Auto) 3-5 /lpf (0-2) H 11/02/23 16:40 U Epithel Cells (Auto) 0-2 /hpf (0-2) 11/02/23 16:40 Urine Bacteria (Auto) None Seen (None Seen) 11/02/23 16:40 Impressions Abdomen/Pelvis CT 11/02/23 13:[address] WITH IV CONTRAST CT DOSE: 1549.61 mGy.cm HISTORY: LEFT FLANK PAIN, S/P RIGHT LITHO/STENT YESTERDAY TECHNIQUE: Multiaxial CT images of the abdomen and pelvis were performed following the use of intravenous contrast. A dose lowering technique was utilized adhering to the principles of ALARA. COMPARISON STUDY: Abdomen and pelvis CT 07/24/2022. FINDINGS: The lung bases are clear. No pneumoperitoneum. No pneumatosis. No acute fractures. There is a tiny fat-containing umbilical hernia. Small fat- containing right inguinal hernia. Suggestion of prior bilateral inguinal hernia repair. Mild hepatic steatosis. Stable subcentimeter hypodense lesion within the left hepatic lobe. This is especially too small to characterize but statistically represents a cyst. The pancreas, spleen, adrenal glands unremarkable. The main portal vein is patent. Normal caliber abdominal aorta. No retroperitoneal or pelvic lymphadenopathy. There are 2 stones within the lower pole the right kidney with the largest measuring 4 mm. There is a punctate stone within the upper pole the left kidney. A right ureteral stent appears in good position. No right ureteral calculi. No right-sided hydronephrosis. Mild left perinephric edema. There is mild left hydronephrosis secondary to an obstructing 4 mm stone within the mid left ureter on image 221. Small amount of gas within the bladder lumen is likely due to the prior segmentation. Colonic diverticulosis. No evidence for acute diverticulitis. No bowel wall thickening or obstruction. Normal appendix. IMPRESSION: 1. Mild left hydronephrosis secondary to an obstructing 4 mm stone within the mid left ureter. 2. Bilateral nephrolithiasis. 3. A right ureteral stent appears in good position. 4. Colonic diverticulosis. No evidence for acute diverticulitis. 5. Additional findings as described above. ACT 112: Negative or not required by law. Electronically signed by: Blaise Eason M.D. 11/02/2023 3:07 PM Code Status & VTE Plan VTE Prophylaxis Plan VTE Prophylaxis will be ordered: Yes Reason for no VTE drug order: Contraindicated (7) HTN (hypertension) Hypertension type: primary hypertension Qualified Code(s): I10 - Essential (primary) hypertension
[2023-11-02] MEDS ORDERED: GLUCOSE 10 TAB/TUBE PO PRN (20:59)
[2023-11-02] MEDS ORDERED: DEXTROSE 50% 50 ML SYRINGE IV PRN (20:59)
[2023-11-02] MEDS ORDERED: ONDANSETRON INJ 2 MG/ML 2 ML VIAL IV PRN (20:59)
[2023-11-02] MEDS ORDERED: KETOROLAC TROMETHAMINE 15 MG/ML VIAL IV PRN (20:59)
[2023-11-02] MEDS ORDERED: CARBOHYDRATES FOR HYPOGLYCEMIA PO PRN (20:59)
[2023-11-02] MEDS ORDERED: GLUCAGON FOR INJ 1 MG VIAL SQ PRN (20:59)
[2023-11-02] MEDS ORDERED: GLUCOSE 40% GEL 15 GM TUBE PO PRN (20:59)
[2023-11-02] MEDS: INSULIN ASPART PER UNIT CHARGE SC SCH (22:19)
[2023-11-03] MEDS: MoRPHine SULFATE 4 MG/ML 1 ML CARP\\VIAL IV PRN (01:29)
--- OUTSIDE RECORDS SUMMARY | 2023-11-03 04:59 | External Medical Summary | Summary of Care ---
Author Name Unknown Organization [facility] Address [address] [place] [address] Phone [phone] Care Team Providers Care Slitting Machine Feeder Name Role Phone Ame Schwartz Brittany VILLALBA Primary Care Provider Reason for Visit * Auth/Cert Specialty Diagnoses / Procedures Referred By Mery ibarra Referred To Contact Diagnoses History of kidney stones History of kidney stones [Z87.442] Procedures CYSTO/URETERO W/LITHOTRIPSY CYSTOURETHROSCOPY URETEROSCOPY WITH LITHOTRIPSY AND STENT INSERTION Moise Chowdhury Jr., MD [address] [place] [address] Or [facility] [address] [place] [address] Referral ID Status Reason Start Date Expiration Date Visits Re quested Visits Authorized [id number] Encounter Details Date Type Department Care Team (Latest Contact Info) Description 11/01/2023 7:50 AM EDT - 11/01/2023 1:06 PM EDT Hospital Encounter OR [facility], Operating Room, [facility] - 4th Floor [address] [place] [address] Moise Chowdhury Jr., MD [address] [place] [address] Discharge Disposition: Home - Self Care Allergies Active Allergy Reactions Criticality Noted Date Comments Amoxicillin-Pot Clavulanate Edema face/lips/tongue,Hives,Itc miguel High 10/29/2017 Meclizine Tachycardia 12/19/2001 Oxycodone-Acetaminophen Itching Medium 11/09/2017 documented as of this encounter (statuses as of 11/02/2023) Medications Medication Sig Dispensed Refills Start Date End Date Status Albuterol Sulfate (ALBUTEROL HFA) 108 (90 BASE) MCG/ACT inhalerIndications: Mild intermittent reactive airway disease without complication Inhale 2 Puffs by mouth 4 times a day. 1 Inhaler 1 9 Active D-Care Glucometer w/Device KitIndications:Type 2 diabetes mellitus without complication, without long-term current use of insulin (HCC) Use as directed. 1 Kit 1 Active LancetsIndications: Type 2 diabetes mellitus without complication, without long-term current use of insulin (HCC) Use as directed. 100 Each 11 1 Active Glucose Blood In Vitro StripIndications:Ty pe 2 diabetes mellitus without complication, without long-term current use of insulin (HCC) Use as directed. 100 Strip 11 1 Active SUMAtriptan Succinate 100 MG Oral Tablet PLEASE SEE ATTACHED FOR DETAILED DIRECTIONS 2 Active Mens 50+ Multi Vitamin/Min Oral Tablet Take by mouth. Active metFORMIN HCl ER 500 MG Oral Tablet Extended Release 24 Hour (Glucophage XR)Indications:Type 2 diabetes mellitus without complication, without long-term current use of insulin (HCC) TAKE 1 TAB TWICE DAILY WITH MEALS 180 Tablet 3 3 Active Lisinopril 10 MG Oral Tablet (Prinivil)Indicatio ns:HTN, goal below 130/80 Take 1 Tablet by mouth in the morning. 90 Tablet 1 4 Active Cetirizine HCl 10 MG Oral Tablet (ZyrTEC) Take 1 Tablet by mouth daily as needed for Rhinitis. Active Furosemide 20 MG Oral Tablet (Lasix) Take 1 Tablet by mouth in the morning. 5 Tablet 4 Active Ketorolac Tromethamine 10 MG Oral Tablet (Toradol) Take 1 Tablet by mouth 2 times a day as needed for Pain, Severe. Do not take for longer than 5 days 10 Tablet 4 Active Tamsulosin HCl 0.4 MG Oral Capsule (Flomax) Take 1 Capsule by mouth in the morning. 20 Capsule 4 Active traMADol HCl 50 MG Oral Tablet (Ultram) Take 1 Tablet by mouth every 6 hours as needed for Pain, Severe. 15 Tablet 4 Active Tamsulosin HCl 0.4 MG Oral Capsule (Flomax) Take 1 Capsule by mouth in the morning. 10 Capsule 4 11/01/19 24 Discontinued Ondansetron 4 MG Oral Tablet Disintegrating (Zofran) Place 1 Tablet on tongue every 8 hours as needed for Nausea. dissolve on tongue. 20 Tablet 4 11/01/19 24 Discontinued documented as of this encounter (statuses as of 11/02/2023) Active Problems Problem Noted Date Diagnosed Date History of kidney stones 10/11/2023 Polyp of colon 08/17/2023 Kidney stone on left side 06/19/2022 Mild intermittent asthma without complication Type 2 diabetes mellitus wit hout complication, without long-term current use of insulin 05/12/2021 Diverticulitis of colon 05/12/2021 HTN, goal below 130/80 07/09/2020 Migraine without aura and wi thout status migrainosus, not intractable 10/05/2017 GERD (gastroesophageal reflux disease) 4 Bilateral chronic knee pain 07/17/2013 documented as of this encounter (statuses as of 11/02/2023) Resolved Problems Problem Noted Date Diagnosed Date Resolved Date BMI 50.0-59.9, adult 06/19/2022 024 Thoracic degenerative disc disease 06/19/2022 08/17/2023 Primary osteoarthritis of left knee 06/19/2022 08/17/2023 Body mass index (BMI) of 40. 0 to 44.9 in adult 12/08/2021 08/17/2023 Overview: Per Obesity protocol BMI 50.0-59.9, adult 11/28/2021 022 Overview: Per Obesity protocol Body mass index (BMI) of 45. 0 to 49.9 in adult 06/16/2021 12/11/2021 Overview: Per Obesity protocol - Per Obesity protocol Body mass index (BMI) of 50. 0 to 59.9 in adult 01/13/2021 06/18/2021 Overview: Per Obesity protocol Unspecified asthma, uncomplicated 03/08/2019 08/17/2023 Reactive airway disease 03/08/201908/01 Prediabetes 06/15/2017 05/12/2021 Overview: Per Prediabetes protocol #1 Left foot pain 06/19/2014 03/15/2017 Acute left-sided low back pa in without sciatica 12/26/2013 08/17/2023 Obesity, morbid (more than 1 00 lbs over ideal weight or BMI > 40) 05/29/2013 01/16/2021 Overview: Per Obesity protocol Other chest pain 06/23/2012 10/03/2012 Unilateral inguinal hernia 12/04/2011 0 10/03/2012 Screening for diabetes mellitus 11/27/2011 10/03/2012 Pain in the abdomen 11/27/2011 10/04/19 13 Pain in the groin 11/27/2011 10/03/2012 Dizzy spells 11/27/2011 10/03/2012 Lipid disorder 08/17/2023 documented as of this encounter (statuses as of 11/02/2023) Immunizations Name Administration Dates Next Due Pneumococcal Polysaccharide PPV23 (Pneumovax) TDAP (age 10 and older)(Boostrix) 05/07/2017 documented as of this encounter Social History Tobacco Use Types Packs/Day Years Used Date Smoking Tobacco: Never Smokeless Tobacco: Never Alcohol Use Standard Drinks/Week Comments Yes 0 (1 standard drink = 0.6 oz pur e alcohol) rare PHQ-2 Answer Date Recorded PHQ Adult Total Score 0 11/28/2021 Hunger Vital Sign Answer Date Recorded Worried About Running Out of Food in the Last Ye ar Never true 07/09/2020 Ran Out of Food in the Last Year Never true 07/09/2020 Utilities Answer Date Recorded Do you have trouble paying y our heating, water, or electric bill? (Adult - for ages 18 years and over) Not on file 10/19/2023 Is your family able to pay t he heat, water, or electric bill? (Household - for ages 0-17 years) Not on file 10/19/2023 Does your family have access to good internet? (Household - for ages 0-17 years) Not on file 10/19/2023 Social Connections Answer Date Recorded How often do you feel lonely or isolated from those around you? (Adult - for ages 18 years and over) Not on file 10/19/2023 Sex and Gender Information Value Date Recorded Sex Assigned at Not on file Gender Identity Not on file Sexual Orientation Not on file Job Start Date Occupation Industry Not on file Not on file Not on file documented as of this encounter Last Filed Vital Signs Vital Sign Reading Time Taken Comments Blood Pressure 156/101 11/01/2023 12:55 PM EDT Pulse 70 11/01/2023 12:55 PM EDT Temperature 36.1 C (97 F) 11/01/2023 12:55 PM EDT Respiratory Rate 18 11/01/2023 12:55 PM EDT Oxygen Saturation 96% 11/01/2023 12:55 PM EDT Inhaled Oxygen Concentration - - Weight 136.1 kg (300 lb) 11/01/2023 7:55 AM EDT Height 167.6 cm (5' 6") 11/01/2023 7:55 AM EDT Body Mass Index 48.42 11/01/2023 7:55 AM EDT documented in this encounter Discharge Instructions * Discharge Instr - AVS* Trenton Mancuso, Moise Haney MD - 11/01/2023 11:25 AM EDT Discharge Date: 11/01/2023 Check your Patient Education Brochure for further information. If you have any further questions call your physician at [phone]. The information below provides you with the instructions and the list of medications you need to betaking following discharge from the hospital. If you have any questions, please ask before leaving.Please carry this letter with you when you see your doctor in the clinic. If you have questions, you can reach us at the numbers above. Diet: Start with clear liquids (jello, tea, apple juice), avoid dairy products (milk, cheese, pudding, ice cream) and fried, greasy foods. Progress to prescribed diet as tolerated. If nausea should occur, have clear liquids only until soft foods can be tolerated. Activity: A responsible adult must be with the patient for 24 hours after surgery. Rest today and tomorrow, and then increase activity as tolerated. DO NOT drive, operate any appliances and/or machinery or sign legal documents for 24 hours. Control of Pain: Prescription: tramadol Warnings: Call your surgeon promptly in case of: A. Excessive bleeding B. Fever greater than 101 degrees F (38.3 degrees centigrade) C. Persistent nausea and vomiting D. Redness, swelling or pus-like drainage E. Pain that is not relieved by the medicine you were told to take F. Other stent removal office Special Instructions: A. Dressing change: none Date you may return to work or school: N/A Follow-up with your urologist in 1 week(s). documented in this encounter Progress Notes * Jaylene Albert [facility] - 11/01/2023 11:35 AM EDT PHARMACY DISCHARGE MEDICATION RECONCILIATION REVIEW [address] [address] Name: Horacio Padilla Location: OR [facility]/[place] Date: 11/01/2023 Time: 11:35 AM This discharge medication reconciliation was reviewed by a pharmacist and no corrections or interventions were required. * Moise Chowdhury Jr., MD - 11/01/2023 11:25 AM EDT [address] [address] OUTPATIENT SURGERY DISCHARGE SUMMARY NOTE Name: Horacio Padilla Location: [place] [facility]/[place] Date: 11/01/2023 Time: 11:25 AM Surgery Date: 11/01/2023 Procedure: CYSTOURETHROSCOPY URETEROSCOPY WITH LITHOTRIPSY AND STENT INSERTION Right Surgeon: Moise Chowdhury Jr., MD Discharge Diagnosis: stones After examination of this patient, I have determined he is ready for discharge to home when the patient meets criteria. Discharge instructions were given to the patient. documented in this encounter H&P Notes * Moise Chowdhury Jr., MD - 11/01/2023 10:21 AM EDT H&P 11/01/23 [id number] PCP: AME SCHWARTZ [address] [place] [address] [phone] Horacio Padilla is a 53 year old male, who presents for f/u of his BPH and stone disease. CT images are reviewed showing a R 6 mm UPJ stone. He was lost to follow-up a year ago. He has a recurrentstone on CT imaging, now stone free on the left. He denies movement of the area of flank pain sincebeginning. BPH: Patient is being seen for BPH today. He has had the following symptoms: nocturia x 2 and urgency. Severity is moderate. He has tried tamsulosin, stopped secondary to orthostasis. He has previously had cysto Oct 2021. Problem has been present since last year. Problem is getting worse. Urolithiasis: Patient is being seen for stone disease today. Problem has been present for a few months.. They have previously required surgery for stone management. Severity is moderate Problem is getting better. Patient has had the following imaging done: CT scan and ultrasound. In the past they have had ureteral stent placement and ureteroscopy with laser lithotripsy to manage their stones. Stone composition is Calcium Oxalate Dihydrate (Weddellite) 20% Calcium Oxalate Monohydrate (Whewellite) 80% Previous evaluation was done by urologist. CT scan September 2023: IMPRESSION 6 millimeter calculus at the right ureteropelvic junction with mild upstream hydronephrosis. PSA Results: Lab Results Component Value Date/Time PSA - MARCELLER 1.32 07/14/2022 04:26 PM Current Medications Current Outpatient Medications Medication Sig Dispense Refill Albuterol Sulfate (ALBUTEROL HFA) 108 (90 BASE) MCG/ACT inhaler Inhale 2 Puffs by mouth 4 times a day. 1 Inhaler 1 D-Care Glucometer w/Device Kit Use as directed. 1 Kit 0 Lancets Use as directed. 100 Each 11 Glucose Blood In Vitro Strip Use as directed. 100 Strip 11 SUMAtriptan Succinate 100 MG Oral Tablet PLEASE SEE ATTACHED FOR DETAILED DIRECTIONS Mens 50+ Multi Vitamin/Min Oral Tablet Take by mouth. metFORMIN HCl ER 500 MG Oral Tablet Extended Release 24 Hour (Glucophage XR) TAKE 1 TAB TWICE DAILYWITH MEALS 180 Tablet 3 Lisinopril 10 MG Oral Tablet (Prinivil) Take 1 Tablet by mouth in the morning. 90 Tablet 1 Cetirizine HCl 10 MG Oral Tablet (ZyrTEC) Take 1 Tablet by mouth daily as needed for Rhinitis. Tamsulosin HCl 0.4 MG Oral Capsule (Flomax) Take 1 Capsule by mouth in the morning. 10 Capsule 0 Furosemide 20 MG Oral Tablet (Lasix) Take 1 Tablet by mouth in the morning. 5 Tablet 0 Ketorolac Tromethamine 10 MG Oral Tablet (Toradol) Take 1 Tablet by mouth 2 times a day as needed for Pain, Severe. Do not take for longer than 5 days 10 Tablet 0 No current facility-administered medications for this visit. Allergies Review of patient's allergies indicates: Allergen Reactions Augmentin [Amoxicillin-Pot Clavulanate] Edema face/lips/tongue, Hives and Itching Percocet [Oxycodone-Acetaminophen] Itching Meclizine Tachycardia Social History: Social History - Alcohol and Tobacco Use Social History Tobacco Use Smoking status: Never Smokeless tobacco: Never Substance Use Topics Alcohol use: Yes Comment: rare Vaping History Vaping/E-Cigarette Use Vaping History Vaping/E-Cigarette Substances Vaping History Vaping/E-Cigarette Devices Family History Family History Problem Relation Name Age of Onset Diabetes Mother dx in 40's Neurological Disorder Mother neuropathy of DM Heart Disorder Mother heart valve disorder requiring surgery Cancer Brother leukemia Heart Disorder Father ? mild heart attack in 20's no further info Past Surgical History Past Surgical History: Procedure Laterality Date COLONOSCOPY, DIAGNOSTIC (RECTUM) 01/18/2019 inflammatory tissue on bx, diverticulosis, repeat 5 yrs / [facility] CYSTO/URETERO W/LITHOTRIPSY Left 07/16/2022 CYSTOURETHROSCOPY URETEROSCOPY WITH LITHOTRIPSY AND STENT INSERTION performed by Noel Ayala MD at OR [facility] DENTAL SURGERY PROCEDURE NEC 2009 KNEE ARTHROSCOPY/SURGERY 08/2013 MISCELLANEOUS ORDER ([facility] ONLY) right finger tendon reattachment MISCELLANEOUS ORDER ([facility] ONLY) Right 10/25/2017 open repair of right inguinal hernia with mesh [facility] Dr. Beckman 10/25/17 REMOVE TONSILS & ADENOIDS, UNDER 12 REPAIR INITIAL INGUINAL HERNIA REDUCIBLE AGE 5 OR MORE 01/07/12 Bilateral laparoscopic bilateral hernia repair with mesh 01/07/12 Dr Flores MNMX REPAIR INITIAL INGUINAL HERNIA REDUCIBLE AGE 5 OR MORE Right 10/25/2017 10/25/2017 right inguinal hernia repair - [facility] Dr. Beckman VASECTOMY Past Medical History Past Medical History: Diagnosis Date Depression hx during previous marriage DM (diabetes mellitus) ([facility]) Lipid disorder prior on meds Migraine hx of dermoid cyst as well on MRI Obesity, morbid (more than 100 lbs over ideal weight or BMI > 40) ([facility]) 05/29/2013 Problem List Patient Active Problem List Diagnosis GERD (gastroesophageal reflux disease) Bilateral chronic knee pain Migraine without aura and without status migrainosus, not intractable HTN, goal below 130/80 Type 2 diabetes mellitus without complication, without long-term current use of insulin ([facility]) Diverticulitis of colon Mild intermittent asthma without complication Kidney stone on left side Polyp of colon Constitutional: (-) fever and (-) chills ENT: (-) stridor Male : see HPI Neurology: (-) negative: no focal neurologic defect Psychiatry: (-) negative: no depression or anxiety Physical Exam Nursing note reviewed. Constitutional: General: He is not in acute distress. Appearance: Normal appearance. He is obese. He is not ill-appearing or toxic-appearing. HENT: Head: Normocephalic and atraumatic. Right Ear: External ear normal. Left Ear: External ear normal. Nose: Nose normal. Mouth/Throat: Mouth: Mucous membranes are moist. Eyes: Extraocular Movements: Extraocular movements intact. Cardiovascular: Pulses: Normal pulses. Pulmonary: Effort: Pulmonary effort is normal. No respiratory distress. Abdominal: Palpations: Abdomen is soft. Tenderness: There is no abdominal tenderness. Musculoskeletal: Cervical back: Normal range of motion and neck supple. Lymphadenopathy: Cervical: No cervical adenopathy. Skin: Coloration: Skin is not cyanotic or pale. Neurological: Mental Status: He is alert and oriented to person, place, and time. Motor: No weakness. Gait: Gait normal. Psychiatric: Attention and Perception: Attention normal. Mood and Affect: Mood and affect normal. Impression/Plan: 53 yo male with R 6 mm UPJ stone x 2 months. Findings reviewed with patient. Due to BMI and skin to stone distance he is a poor candidate for ESWL. Patient wishes to move forward with intervention as soon as possible. He notes poor stent tolerance with intractable nausea and "sepsis" for which he was seen in the ER, although urine culture wasnegative at the time. We can consider stent with string. Will schedule with next available provideronce possible. Risks and benefits reviewed, informed consent obtained. Cystoscopy, right retrograde pyelography, right-sided ureteroscopy with laser lithotripsy, basket stone extraction and ureteral stent placement with possible string. 7-10 day postop office stent removal with KUB. Kidney stones that obstruct the ureter can be severely painful. There are options for management. Expectant management will allow stones to spontaneously pass. For stones under 6 mm this can be 80% of the time. Passage rates and pain control can be improved with the use of medications including alpha blockers. The time to passage can vary. Uncontrollable pain or progressive obstruction without passage or infection is indications for intervention. Placing a ureteral stent can relieve the obstruction or drain an infection. ESWL is an external way of fracturing a stone in the ureter or kidney which fragments the stone into passable pieces 70% to 80% of the time. Ureteroscopy involves entering into the urinary tract with a scope and removing the stone or fracturing it with laser. It is more successful at over 90% but more invasive and usually requires a stent. More complicated or larger stones can be treated with percutaneous or laparoscopic procedures which would be referred to a tertiary center. We are recommending a ureteroscopy. This is an outpatient procedure that requires anesthesia. We gain entrance to the urinary tract through the urethra and then in the bladder to the kidneys or ureter. We can perform lithotripsy and remove fragments of stone. It is very likely that we will place a ureteral stent for a week to allow for healing and the swelling to resolve. They usually have pain frequency and bleeding after this procedure for a week or two. Success rates are around 90%. There graciela known risk of injury to the ureter with possible perforation or stricture. Urine, Clean Catch 0 Result Notes Culture Growth No significant growth Resulting Agency: Specimen Collected: 10/25/23 08:06 Last Resulted: 10/26/23 08:50 documented in this encounter Nursing Notes * Temitope Underwood RN - 11/01/2023 1:04 PM EDT [address] [address] [facility] Surgery Discharge Note Name: Horacio Paidlla Date: 11/01/2023 Time: 1:04 PM Discharge Disposition: Home Responsible adult as escort home: Friend Transport Mode: Ambulatory Accompanied by: Temitope Underwood RN To: Car Belongings with patient: Yes Patient meets criteria to be transferred or discharged. * Temitope Underwood RN - 11/01/2023 12:20 PM EDT Post Anesthesia Care Unit Discharge Note [address] [address] Dept. Horacio Padilla Vital Signs Stable Discharged from PACU as per discharge criteria (see discharge criteria sheet). Time: 1220 Reported to: N/A Taken to In/ Out Surgery, accompanied by Responsible adult Temitope Underwood RN. Transported via: Stretcher Belongings with Patient: Not Applicable Prescriptions on Chart: Yes Patient meets criteria to be transferred or discharged * Trupti Bravo RN - 10/13/2023 2:46 PM EDT Patient identified by: name/birthdate Person taught: Patient Optime case procedure confirmed with surgical consent Laterality confirmed as Right Surgery date at time of Pre-Surgery Center Encounter: 11/01/2023 What procedure is patient having? cystoscopy, right retrograde pyelogram ureteroscopy with laser lithotropsy possible stent basketing and stent placement In an emergency, is patient willing to accept blood products or blood transfusion? unknown Do you need to place a blood bank order? No Anesthesia consent pool notified? N/A Anesthesia evaluation requested per case documentation? No Preop Evaluation Requested? No PATIENT EDUCATION SCREENING Person taught: Patient Motivation Level: Asks Questions and Eager to Learn Language Barrier: No Physical Barrier: N/A METHOD: Lecture-telephone interview Patient Preferred Learning Methods: Lecture-Telephone interview Health History interview completed, questions answered, and the following patient instructions provided via telephone interview: Preoperative bathing instructions General preoperative instructions Medication instructions NPO instructions No routine medications the morning of surgery. Hold metformin the evening before surgery as well. OUTCOME: State / Describe / Explain, Needs Reinforcement, and Verbalizes understanding of education * Trupti Bravo RN - 10/13/2023 1:25 PM EDT Left message on mobile phone for return call @ [phone] by Patient at least one week prior to surgery date or to leave a number where they can be reached . Instructed clinic open hours are M-F 8:00a- 4:00p. documented in this encounter OR Notes * OR Surgeon - Moise Chowdhury Jr., MD - 11/01/2023 11:27 AM EDT [facility]-[address] [address] OPERATIVE REPORT Name: Horacio Padilla Date: 11/01/2023 Time: 11:25 AM Location: OR [facility] Service: Urology Date of Operation: 11/01/2023 Pre-op Diagnosis: right proximal ureteral stone 9 mm Post-op Diagnosis: same Operation: right ureteroscopy laser lithotripsy and stone removal and stent placement. Surgeon: Moise Chowdhury Jr., MD Assistants: None Anesthesia: General LMA anesthesia Drains: 6-26 stent Estimated Blood Loss: 5 ml. IV Fluids: 400 ml. Urine Output: N/A Specimens/Disposition: stone Apparent Intraoperative Complications: NONE Patient Condition: good Disposition: Post Anesthesia Care Unit Attestation: I performed the procedure Findings: An impacted proximal right ureteral stone broken up into small fragments some extracted for analysis the remainder submillimeter we will be passing on their own with placement of double-J stent on the right in good position proximally and distally. Indication a 53-year-old male with a history of stones now with a recurrent stone on the right withobstruction and pain coming in for elective management with ureteroscopy. The general information alternatives and risks of the procedure were explained and understood in detail. Procedure: Patient was taken to the operating room and identified his ipsilateral right side had been marked we would reviewed his films intraoperatively we reviewed his allergies he received an IV ciprofloxacin he had SCDs all the appropriate personnel and equipment were available and then the patient was put under general LMA anesthesia and moved into lithotomy position. He was prepped draped and secured in the standard sterile fashion. We began with cystoscopy entering into the urethra identifying a normal urethra mild BPH and then a normal-appearing bladder. The right ureteral orifice wascannulated with a 4 Portuguese open-ended catheter we put in a small amount of diluted dye and identified obstructing impacted stone in the proximal right ureter which we were able to get pass with a safety wire. We then placed an access sheath dilator up to a level just below the stone and the safety wire was left in place and we began with a flexible digital ureteroscopy we identified the stone impacted in the ureter and we are able to break out the 242 micron laser at a setting of 10 hertz and 1200 mJ and break the stone up into numerous small fragments 1-2 mm or smaller we did basket extract a couple of these larger ones and they were sent for analysis the rest were very small and mobile and should pass. The safety wire was in place throughout the procedure we placed a stent in good position proximally and distally over the safety wire and the bladder was drained. Patient will be discharged to home on pain medicines and alpha-olya and then he will be also going to the office for stent removal. * Operative Report Brief - Moise Chowdhury Jr., MD - 11/01/2023 11:25 AM EDT [facility]-[address] [place] [address] OPERATIVE REPORT - BRIEF Name: Horacio Padilla Date: 11/01/2023 Time: 11:25 AM Location: OR [facility] Service: Urology Date of Operation: 11/01/2023 Pre-op Diagnosis: right proximal ureteral stone 9 mm Post-op Diagnosis: same Operation: right ureteroscopy laser lithotripsy and stone removal and stent placement. Surgeon: Moise Chowdhury Jr., MD Assistants: None Anesthesia: General LMA anesthesia Drains: 6-26 stent Estimated Blood Loss: 5 ml. IV Fluids: 400 ml. Urine Output: N/A Specimens/Disposition: stone Apparent Intraoperative Complications: NONE Patient Condition: good Disposition: Post Anesthesia Care Unit Attestation: I performed the procedure documented in this encounter Plan of Treatment Upcoming Encounters Date Type Department Care Team (Latest Contact Info) Description 11/10/2023 9:45 AM EDT Procedure Only Urology [facility] [address] [address] [place] [address] Moise Chowdhury Jr., MD 27 [facility] [place] [address] 01/13/2024 10:12 AM EDT Hospital Encounter OR [facility], Operating Room, [facility] - 4th Floor [address] [place] [address] [place] [address] Joby Mane DO [address] [facility] [place] [address] 01/13/2024 10:12 AM EDT - 01/13/2024 10:50 AM EDT Surgery OR [facility], Operating Room, [facility] - 4th Floor [address] [place] [address] [place] [address] Joby Mane, DO [address] [place] [address] COLONOSCOPY FLEXIBLE PROXIMAL DIAGNOSTIC Pending Results Name Type Priority Associated Diagnoses Date /Time STONE ANALYSIS Lab Routine History of kidney stones 11/01/2023 11:20 AM EDT Scheduled Orders Name Type Priority Associated Diagnoses Orde r Schedule STONE ANALYSIS Lab Routine History of kidney stones Release Upon Ordering for 1 Occurrences starting 11/01/2023 Scheduled Procedures Name Priority Associated Diagnoses Date/Ti me COLONOSCOPY FLEXIBLE PROXIMAL DIAGNOSTIC Recall History of colon polyps 01/13/2024 10:12 AM EDT Health Maintenance Due Date Last Done Comments HIV Screening 01/19/1987 Hepatitis B (1 of 3 - 19+ 3-dose series) 01/19/1991 Cologuard 01/19/2017 Fecal Occult Blood Test 01/19/2017 Sigmoidoscopy 01/19/2017 Zoster Vaccines (1 of 2) 01/19/2022 *SPIROMETRY ONCE FOR ASTHMA-ADULT 03/26/2022 Pneumococcal Vaccine: Pediatrics (0 to 5 Years) and At-Risk Patients (6 to 64 Years) (2 of 2 - PCV) 05/12/2022 05/12/2021 Depression Screening 11/28/2022 11/28/2021, 10/16/19 18 COVID-19 Vaccine (1 - 2022- season) 2023 Influenza Vaccine (FLU shot) (#1) 2024 Colonoscopy 01/19/2024 01/18/2019 Colorectal Cancer Screening 01/19/2024 HbA1c 02/16/2024 08/17/2023, 06/03, 11/28/2021, Additional history exists Diabetic Eye Exam 08/16/2024 08/17/2023, , 07/31/2021 Diabetic Foot Exam 08/16/2024 08/17/2023 GFR 08/16/2024 08/17/2023, 06/03, 11/28/2021, Additional history exists Albumin/Creatinine Ratio 10/24/202410/24/2 024, 08/17/2023, 07/31/2021 DTaP,Tdap,and Td Vaccines (2 - Td or Tdap) 05/07/2027 05/07/2017 Lipid Panel 08/16/2028 08/17/2023, 06/03, 05/14/2017, Additional history exists RETIRED - COLONOSCOPY-EVERY 5 YRS AGES 18-100 Discontinued 01/18/2019 GARDASIL-HPV IMMUNIZATION SERIES Aged Out No longer eligible based on patient's age to complete this topic MENINGOCOCCAL (MENACTRA/MENVEO) Aged Out No longer eligible based on patient's age to complete this topic documented as of this encounter Medical Devices Not on filedocumented as of this encounter Procedures Procedure Name Priority Date/Time Associated Diagnosis Comments GLUCOSE METER, POINT OF CARE FADIA 11/01/2023 12:09 PM EDT XR RETROGRADE URETHROGRAM IN OR - TECH CHARGE Routine 11/01/2023 11:28 AM EDT GLUCOSE METER, POINT OF CARE FADIA 11/01/2023 8:17 AM EDT documented in this encounter Results * GLUCOSE METER, POINT OF CARE (11/01/2023 12:09 PM EDT) Glucose Meter 120 70 - 120 mg/dL 11/01/2023 12:17 PM EDT [facility] Blood Whole blood specimen / Unknown 11/01/2023 12:09 PM EDT 11/01/2023 12:17 PM EDT Moise Chowdhury Jr., MD LAB POINT OF C ARE TEST DOCKED DEVICE UNSOLICITED RESULTS [facility] [address] [place] [address] * XR RETROGRADE URETHROGRAM IN OR - TECH CHARGE (11/01/2023 11:28 AM EDT) Narrative Scheduling, Silent - 11/01/2023 11:28 AM EDT This procedure will not be read by a Radiologist. Please see operative note. Moise Chowdhury Jr., MD RADIOLOGY (RAD GENERAL) * GLUCOSE METER, POINT OF CARE (11/01/2023 8:17 AM EDT) Glucose Meter 113 70 - 120 mg/dL 11/01/2023 8:20 AM EDT [facility] Blood Whole blood specimen / Unknown 11/01/2023 8:17 AM EDT 11/01/2023 8:20 AM EDT Moise Chowdhury Jr., MD LAB POINT OF C ARE TEST DOCKED DEVICE UNSOLICITED RESULTS [facility] [address] [place] [address] documented in this encounter Visit Diagnoses Diagnosis History of kidney stones- Primary Personal history of urinary calculi History of colon polyps Personal history of colonic polyps documented in this encounter Administered Medications Inactive Administered Medications - up to 3 most recent administrations Medication Order MAR Action Action Date Dose Rate Site isolyte-S pH 7.4 infusion Intravenous, at 25 mL/hr, All Patients EXCEPT Dialysis patients Plasma-LYTE 148, isolyte-S, and isolyte-S pH 7.4 are considered equivalent - including for MAR barcode scanning., CONTINUOUS, Starting on Wed11/01/23 at 0830, Until Wed11/01/23 at 1709, Pre-Op Restarted 11/01/2023 11:01 AM EDT Continue from Pre-Op 11/01/2023 10:38 AM EDT 25 mL/hr New Bag 11/01/2023 8:28 AM EDT 25 mL/hr 25 mL/hr Povidone-Iodine nasal swab 1 Swab 1 Swab, Nasal, ONCE, On Wed11/01/23 at 0830, For 1 dose, Administer as per die polisher instructions unless contraindicated., Pre-Op Given 11/01/2023 8:28 AM EDT 1 Swab documented in this encounter Active and Recently Administered Medications Times are shown in EDT. Scheduled Medication Order 10/30/2023 10/31/2023 11/01/2023 ciprofloxacin (Cipro) in D5W ivpb 400 mg (COMPLETED) IV Piggyback, 400 mg, ONCE, 1 dose, On Wed11/01/23 at 1100, Administer over 60 Minutes, PROTECT FROM LIGHT 1043 (Given - Provid er: Rosario Bustos CRNA) Povidone-Iodine nasal swab 1 Swab (COMPLETED) 1 Swab, Nasal, ONCE, On Wed11/01/23 at 0830, For 1 dose, Administer as per die polisher instructions unless contraindicated., Pre-Op 0828 (Given - Provid er: Joanne Solis, RN) Continuous Medication Order 10/30/2023 10/31/2023 11/01/2023 isolyte-S pH 7.4 infusion Intravenous, at 25 mL/hr, All Patients EXCEPT Dialysis patients Plasma-LYTE 148, isolyte-S, and isolyte-S pH 7.4 are considered equivalent - including for MAR barcode scanning., CONTINUOUS, Starting on Wed11/01/23 at 0830, Until Wed11/01/23 at 1709, Pre-Op 0828 (New Bag - Prov ider: Joanne Solis RN)1038 (Continue from Pre-Op - Provider: Rosario Bustos CRNA)1100 (Paused - Provider: Rosario Bustos CRNA - Comment: Switch to gravity)1101 (Restarted - Provider: Rosario Bustos CRNA)1112 (Anes Intra-Op Fluid - Provider: Rosario Bustos CRNA) PRN Medication Order 10/30/2023 10/31/2023 11/01/2023 Ioversol (Optiray 320) inj (CANCELED) ONCE PRN INTRA PROCEDURE, Starting on Wed11/01/23 at 1124, Until Wed11/01/23 at 1132, Intra-Op 1124 (Given - Provid er: Moise Chowdhury Jr., MD) sodium chloride IR 0.9 % irrigation (CANCELED) ONCE PRN INTRA PROCEDURE, Starting on Wed11/01/23 at 1123, Until Wed11/01/23 at 1132, Intra-Op 1123 (Given - Provid er: Moise Chowdhury Jr., MD - Comment: bladder) documented in this encounter Advance Directives * Full Code (Latest Code Status on File) Date Activated Date Inactivated Comments 11/01/2023 11:34 AM 11/01/2023 5:09 PM This order re flects the patients wishes and were consensually agreed upon. Question Answer Comments Discussion of Advance Direct cristiana occurred with: Not Discussed due to patient's condition * Full Code Date Activated Date Inactivated Comments 07/16/2022 12:59 PM 07/16/2022 6:08 PM This order reflects the patients wishes and were consensually agreed upon. Question Answer Comments Discussion of Advance Directives occurred with: Patient * Full Code Date Activated Date Inactivated Comments 07/16/2022 9:30 AM 07/16/2022 12:59 PM This order reflects the patients wishes and were consensually agreed upon. Question Answer Comments Discussion of Advance Directives occurred with: Patient Care Teams Slitting Machine Feeder Relationship Specialty Start Date End Date Ame Schwartz CRNP [address] [place] [address] PCP - General Nurse Practitioner 08/17/23 documented as of this encounter
--- OUTSIDE RECORDS SUMMARY | 2023-11-03 05:00 | External Medical Summary ---
Author Name Unknown Address Unknown Organization K01:[facility] [place] [address] [place] [address] Laboratory Report Ordering Provider Test Date Status TOVATHEODORE 10/25/2023 08:06:38 Final Normal: <30 mg/g creatinine< br/>High: 30-300 mg/g creatinine
Very High: >300 mg/g creatinine
Nephrotic: >2200 mg/g creatinine Observation Date Value Abnormality Reference (Units ) Status Albumin, Urine 10/25/2023 08:06:38 <1.20 (mg/dL) Final Creatinine, Urine 10/25/2023 08:06:38 60 (mg/dL) Final Albumin/Creatinine [Mass Ratio] in Urine 10/25/2023 08:06:38 <20 <30 (mg/g Creat) Final Performing Location [facility] [place] [address] [place] [address]
--- OUTSIDE RECORDS SUMMARY | 2023-11-03 05:00 | External Medical Summary | Summary of Care ---
Author Name Unknown Organization [facility] Address [address] [facility] [place] [address] Phone [phone] Care Team Providers Care Equipment Operator/Laborer/Supervisor Name Role Phone Efren Ame VILLALBA Primary Care Provider Encounter Details Date Type Department Care Team (Late st Contact Info) Description 10/11/2023 Telephone Urology, [facility] 132 [facility] [place] [address] Noel Ayala MD [address] [place] [address] [place] [address] Allergies Active Allergy Reactions Criticality Noted Date Comments Amoxicillin-Pot Clavulanate Edema face/lips/tongue,Hives,Itc miguel High 10/29/2017 Meclizine Tachycardia 12/19/2001 Oxycodone-Acetaminophen Itching Medium 11/09/2017 documented as of this encounter (statuses as of 10/12/2023) Medications Medication Sig Dispensed Refills Start Date End Date Status Albuterol Sulfate (ALBUTEROL HFA) 108 (90 BASE) MCG/ACT inhalerIndications:M ild intermittent reactive airway disease without complication Inhale 2 Puffs by mouth 4 times a day. 1 Inhaler 1 03/08/2019 Active D-Care Glucometer w/Device KitIndications:Type 2 diabetes mellitus without complication, without long-term current use of insulin (HCC) Use as directed. 1 Kit 08/09/2020 Active LancetsIndications:T ype 2 diabetes mellitus without complication, without long-term current use of insulin (HCC) Use as directed. 100 Each 11 08/09/2020 Active Glucose Blood In Vitro StripIndications:Typ e 2 diabetes mellitus without complication, without long-term current use of insulin (HCC) Use as directed. 100 Strip 11 08/09/2020 Active SUMAtriptan Succinate 100 MG Oral Tablet PLEASE SEE ATTACHED FOR DETAILED DIRECTIONS 11/28/2021 Active Mens 50+ Multi Vitamin/Min Oral Tablet Take by mouth. Active metFORMIN HCl ER 500 MG Oral Tablet Extended Release 24 Hour (Glucophage XR)Indications:Type 2 diabetes mellitus without complication, without long-term current use of insulin (HCC) TAKE 1 TAB TWICE DAILY WITH MEALS 180 Tablet 3 02/15/2023 Active Lisinopril 10 MG Oral Tablet (Prinivil)Indication s:HTN, goal below 130/80 Take 1 Tablet by mouth in the morning. 90 Tablet 1 08/17/2023 Active Cetirizine HCl 10 MG Oral Tablet (ZyrTEC) Take 1 Tablet by mouth daily as needed for Rhinitis. Active Tamsulosin HCl 0.4 MG Oral Capsule (Flomax) Take 1 Capsule by mouth in the morning. 10 Capsule 09/23/2023 Active Additional Information Patient not taking.Reported on 10/11/2023 Furosemide 20 MG Oral Tablet (Lasix) Take 1 Tablet by mouth in the morning. 5 Tablet 09/23/2023 Active Ketorolac Tromethamine 10 MG Oral Tablet (Toradol) Take 1 Tablet by mouth 2 times a day as needed for Pain, Severe. Do not take for longer than 5 days 10 Tablet 09/23/2023 Active Ondansetron 4 MG Oral Tablet Disintegrating (Zofran) Place 1 Tablet on tongue every 8 hours as needed for Nausea. dissolve on tongue. 20 Tablet 10/11/2023 Active documented as of this encounter (statuses as of 10/12/2023) Active Problems Problem Noted Date Diagnosed Date [...] as of this encounter (statuses as of 10/12/2023) Resolved Problems Problem Noted Date Diagnosed Date [...] as of this encounter (statuses as of 10/12/2023) Immunizations Name Administration Dates Next Due Pneumococcal [...] in the Last Year Never true 07/09/2020 Sex and Gender Information Value Date Recorded Sex Assigned at Not on file Gender Identity Not on file Sexual Orientation Not on file Job Start Date Occupation Industry Not on file Not on file Not on file documented as of this encounter Miscellaneous Notes * Telephone Encounter - Meredith Monique OSA - 10/12/2023 1:41 PM EDT Scheduled on 11/01/[address] Chowdhury. * Telephone Encounter - Meredith Monique OSA - 10/12/2023 8:16 AM EDT Lmom to return call * Telephone Encounter - Che Comer LPN - 10/11/2023 4:23 PM EDT Please contact patient to schedule: Cystoscopy, right retrograde pyelography, right-sided ureteroscopy with laser lithotripsy, basket stone extraction and ureteral stent placement with possible string. (At [facility]) Can be with Dr Ayala or Dr Chowdhury, whoever is sooner and patient preference. 7-10 day postop office stent removal with KUB. Preop teaching completed, testing ordered, patient is aware he will be contact with appointments. Thank you Devi documented in this encounter Plan of Treatment Upcoming Encounters Date Type Department Care Team (Latest Contact Info) Description 11/01/2023 Hospital Encounter OR [facility], Operating Room, [facility] Floor [address] [place] [address] Moise Chowdhury Jr., MD [address] [facility] [place] [address] [place] [address] 11/10/2023 9:45 AM EDT Procedure Only Urology [facility] [address] [place] [address] [place] [address] Moise Chowdhury Jr., MD [address] [facility] [place] [address] [place] [address] 01/13/2024 10:08 AM EDT Hospital Encounter OR [facility], Operating Room, [facility] Floor [address] [place] [address] Joby Mane, DO [address] [place] [address] 01/13/2024 10:08 AM EDT - 01/13/2024 10:46 AM EDT Surgery OR [facility], Operating Room, [facility] - 4th Floor [address] [place] [address] Joby Mane, DO [address] [place] [address] COLONOSCOPY FLEXIBLE PROXIMAL DIAGNOSTIC Scheduled Procedures Name Priority Associated Diagnoses Date/Ti me CYSTOURETHROSCOPY URETEROSCO PY WITH LITHOTRIPSY AND STENT INSERTION History of kidney stones COLONOSCOPY FLEXIBLE PROXIMA L DIAGNOSTIC Recall History of colon polyps 01/13/2024 10:08 AM EDT Health Maintenance Due Date Last [...] 2022- season) 2023 Influenza Vaccine (FLU shot) (Season Ended) 2024 Colonoscopy 01/19/2024 01/18/2019 Colorectal Cancer Screening 01/19/2024 HbA1c 02/16/2024 08/17/2023, 06/03, 11/28/2021, Additional history exists Albumin/Creatinine Ratio 08/16/2024 08/17/2023, 0305/2021 Diabetic Eye Exam 08/16/2024 08/17/2023, , 07/31/2021 Diabetic Foot Exam 08/16/2024 08/17/2023 GFR 08/16/2024 08/17/2023, 06/03, 11/28/2021, Additional history exists DTaP,Tdap,and Td Vaccines (2 - Td or [...] Not on filedocumented as of this encounter Advance Directives * Full Code (Latest Code Status on File) Date Activated Date Inactivated Comments 07/16/2022 12:59 [...] Advance Directives occurred with: Patient Care Teams Equipment Operator/Laborer/Supervisor Relationship Specialty Start Date End Date Ame Schwartz CRNP [address] [place] [address] PCP - General Nurse Practitioner 08/17/23 documented as of this encounter
--- OUTSIDE RECORDS SUMMARY | 2023-11-03 05:00 | External Medical Summary ---
Author Name Unknown Address Unknown Organization : Laboratory Report Ordering Provider Test Date Status BRADFORD YUSUF JR 11/01/2023 12:09:59 Final Observation Date Value Abnormality Reference (Units ) Status Glucose Point of Care 11/01/2023 12:09:59 120 70-120 (mg/dL) Final Performing Location
--- OUTSIDE RECORDS SUMMARY | 2023-11-03 05:00 | External Medical Summary | Summary of Care ---
Author Name Unknown Organization [facility] Address [address] [facility] [place] [address] Phone [phone] Care Team Providers Care Program Rep Name Role Phone Ame Schwartz Brittany VILLALBA Primary Care Provider Reason for Visit * Reason Onset Date Comments Appointment 10/25/2023 Encounter Details Date Type Department Care Team (Late st Contact Info) Description 10/25/2023 Telephone Nephrology, [facility] [place] [address] [place] [address] Matheus Scott MD [address] [facility] [place] [address] Appointment Allergies Active Allergy Reactions Criticality Noted Date Comments Amoxicillin-Pot Clavulanate Edema face/lips/tongue,Hives,Itc miguel High 10/29/2017 Meclizine Tachycardia 12/19/2001 Oxycodone-Acetaminophen Itching Medium 11/09/2017 documented as of this encounter (statuses as of 10/25/2023) Medications Medication Sig Dispensed Refills Start Date [...] complication, without long-term current use of insulin ([facility]) Use as directed. 100 Each 11 08/09/2020 Active Glucose Blood In Vitro StripIndications:Typ e 2 diabetes mellitus without complication, without long-term current use of insulin ([facility]) Use as directed. 100 Strip 11 08/09/2020 Active SUMAtriptan Succinate 100 MG Oral Tablet PLEASE SEE ATTACHED FOR DETAILED DIRECTIONS 11/28/2021 Active Mens 50+ Multi Vitamin/Min Oral Tablet Take by mouth. Active metFORMIN HCl ER 500 MG Oral Tablet Extended Release 24 Hour (Glucophage XR)Indications:Type 2 diabetes mellitus without complication, without long-term current use of insulin ([facility]) TAKE 1 TAB TWICE DAILY WITH MEALS [...] Active Additional Information Patient not taking.Reported on 10/13/2023 Furosemide 20 MG Oral Tablet (Lasix) Take [...] as of this encounter (statuses as of 10/25/2023) Active Problems Problem Noted Date Diagnosed Date [...] as of this encounter (statuses as of 10/25/2023) Resolved Problems Problem Noted Date Diagnosed Date [...] as of this encounter (statuses as of 10/25/2023) Immunizations Name Administration Dates Next Due Pneumococcal [...] encounter Miscellaneous Notes * Telephone Encounter - Katey Keating OSA - 10/25/2023 2:08 PM EDT 10/25/23 Called patient, left message. Trying to get patient scheduled with Nephrology for appointment. Referral is under active requests. Please offer 11/01 or 7/[address] Scott at [facility]. My G message being sent out as well. documented in this encounter Plan of Treatment Upcoming Encounters Date Type Department Care Team (Latest Contact Info) Description 11/01/2023 10:08 AM EDT Hospital Encounter OR [facility], Operating Room, [address] [place] [address] Moise Chowdhury Jr., MD [address] [address] [place] [address] 11/01/2023 10:08 AM EDT - 11/01/2023 11:21 AM EDT Surgery OR [facility], Operating Room, [address] [place] [address] Moise Chowdhury Jr., MD [address] [address] [place] [address] CYSTOURETHROSCOPY URETEROSCOPY WITH LITHOTRIPSY AND STENT INSERTION 11/10/2023 9:45 AM EDT Procedure Only Urology [facility] [address] [place] [address] [place] [address] Moise Chowdhury Jr., MD [address] [address] [place] [address] 01/13/2024 10:12 AM EDT Hospital Encounter OR [facility], Operating Room, [address] [place] [address] Joby Mane, DO [address] [facility] [place] [address] 01/13/2024 10:12 AM EDT - 01/13/2024 10:50 AM EDT Surgery OR [facility], Operating Room, [address] [place] [address] Joby Mane, DO [address] [place] [address] COLONOSCOPY FLEXIBLE PROXIMAL DIAGNOSTIC Scheduled Procedures Name Priority Associated Diagnoses Date/Ti me CYSTOURETHROSCOPY URETEROSCO PY WITH LITHOTRIPSY AND STENT INSERTION History of kidney stones 11/01/2023 10:08 AM EDT COLONOSCOPY FLEXIBLE PROXIMA L DIAGNOSTIC Recall History [...] Additional history exists Albumin/Creatinine Ratio 08/16/2024 08/17/2023, 03/05/2021 Diabetic Eye Exam 08/16/2024 08/17/2023, , 07/31/2021 [...] Advance Directives occurred with: Patient Care Teams Program Rep Relationship Specialty Start Date End Date Ame Schwartz CRNP [address] [place] [address] PCP - General Nurse Practitioner 08/17/23 documented as of this encounter
--- OUTSIDE RECORDS SUMMARY | 2023-11-03 05:00 | External Medical Summary | Summary of Care ---
Author Name Unknown Organization [facility] Address [address] [facility] [place] [address] Phone [phone] Care Team Providers Care Director Vaccine Name Role Phone Ame Schwartz Primary Care Provider Reason for Referral * Evaluate & Treat - Unlimited Visits (Within 30 days (routine)) - Authorized Specialty Diagnoses / Procedures Referred By Conthoda t Referred To Contact Nephrology Diagnoses History of kidney stones Noel Ayala MD [address] [facility] [address] [place] [address] Referral ID Status Reason Start Date Expiration Date Visits Requested Visits Authorized [id number] Authorized Specialty Services Required 10/11/[phone] Question Answer Referral Priority Within 30 days (routine) Where should this appointment be scheduled? [facility] What condition is this patient being seen for? Kidney stones Is patient currently symptomatic (flank pain, blood in urine)? Yes Reason for Visit * Reason Comments Follow Up * Evaluate & Treat - Unlimited Visits (Within 3 days (urgent)) - Pending Review Specialty Diagnoses / Procedures Referred By Contac t Referred To Contact Urology Diagnoses Urinary tract obstruction due to kidney stone Michael Villanueva [facility] [address] [facility] [address] Referral ID Status Reason Start Date Expiration Date Visits Requested Visits Authorized [id number] Pending Review Specialty Services Required 09/23/[phone] Encounter Details Date Type Department Care Team (Late st Contact Info) Description 10/11/2023 4:00 PM EDT Office Visit Urology, [facility] [address] [place] [address] Noel Ayala MD [address] [facility] [address] [place] [address] History of kidney stones* Allergies Active Allergy Reactions Criticality Noted Date [...] on file documented as of this encounter Progress Notes * Noel Ayala MD - 10/11/2023 4:00 PM EDT [id number] PCP: AME SCHWARTZ [address] [place] [address] [phone] Horacio Padilla is a 53 year old [...] Lab Results Component Value Date/Time [facility] 07/14/2022 04:26 PM Current Outpatient Medications Medication Sig Dispense Refill [...] No current facility-administered medications for this visit. Review of patient's allergies indicates: Allergen Reactions Augmentin [Amoxicillin-Pot Clavulanate] Edema face/lips/tongue, Hives and Itching Percocet [Oxycodone-Acetaminophen] Itching Meclizine Tachycardia Social History: Social History Tobacco Use Smoking status: Never Smokeless tobacco: Never Substance Use Topics Alcohol use: Yes Comment: rare Vaping/E-Cigarette Use Vaping/E-Cigarette Substances Vaping/E-Cigarette Devices Family History Problem Relation Name Age of Onset Diabetes Mother dx in 40's Neurological Disorder Mother neuropathy of DM Heart Disorder Mother heart valve disorder requiring surgery Cancer Brother leukemia Heart Disorder Father ? mild heart attack in 20's no further info Past Surgical History: Procedure Laterality Date COLONOSCOPY, DIAGNOSTIC (RECTUM) 01/18/2019 inflammatory tissue on bx, diverticulosis, repeat 5 yrs / [facility] CYSTO/URETERO W/LITHOTRIPSY Left 07/16/2022 CYSTOURETHROSCOPY URETEROSCOPY WITH LITHOTRIPSY AND STENT INSERTION performed by Noel Ayala MD at OR [facility] DENTAL SURGERY PROCEDURE NEC 2008 KNEE ARTHROSCOPY/SURGERY 08/2013 MISCELLANEOUS ORDER ([facility] ONLY) right finger tendon reattachment MISCELLANEOUS ORDER ([facility] ONLY) Right 10/25/2017 open repair of right inguinal hernia with mesh [facility] Dr. Beckman 10/25/17 REMOVE TONSILS & ADENOIDS, UNDER 12 REPAIR INITIAL INGUINAL HERNIA REDUCIBLE AGE 5 OR MORE 01/07/12 Bilateral laparoscopic bilateral hernia repair with mesh 01/07/12 Dr Flores MNMX REPAIR INITIAL INGUINAL HERNIA REDUCIBLE AGE 5 OR MORE Right 10/25/2017 10/25/2017 right inguinal hernia repair - [facility] Dr. Beckman VASECTOMY Past Medical History: Diagnosis Date Depression hx during previous marriage DM (diabetes mellitus) ([facility]) Lipid disorder prior on meds Migraine hx of dermoid cyst as well on MRI Obesity, morbid (more than 100 lbs over ideal weight or BMI > 40) ([facility]) 05/29/2013 Patient Active Problem List Diagnosis GERD (gastroesophageal reflux disease) Bilateral chronic knee pain Migraine without aura and without status migrainosus, not intractable HTN, goal below 130/80 Type 2 diabetes mellitus without complication, without long-term current use of insulin ([facility]) Diverticulitis of colon Mild intermittent asthma without [...] day postop office stent removal with KUB. Noel Ayala MD 1:47 PM 10/11/2023 documented in this encounter Nursing Notes * Che Comer LPN - 10/11/2023 4:11 PM EDT Patient to be scheduled at [facility] for Cystoscopy, right retrograde pyelography, right-sided ureteroscopy with laser lithotripsy, basket stone extraction and ureteral stent placement with possible stringwith Dr Noel Ayala. Medications reviewed. EKG: obtained CXR: ordered Labs: on file UAC&S: ordered, to be done 1 week prior to surgery Post op appts needed: 7-10 day postop office stent removal with KUB. Permit signed. Patient verbalizes understanding of pre- and post op instructions. Written instructions given for review at later date. Che Comer LPN 10/11/2023 * Che Comer LPN - 10/11/2023 3:42 PM EDT 3 month ret for stones, renal US results. Right back pain, radiating to side today. Worse with ambulation. Not taking tamsulosin. documented in this encounter Miscellaneous Notes * Addendum Note - Che Comer LPN - 10/11/2023 4:11 PM EDTAddended by: CHE COMER on: 10/11/2023 04:11 PM Modules accepted: Orders documented in this encounter Plan of Treatment Upcoming Encounters Date Type Department Care Team (Latest Contact Info) Description 11/01/2023 Hospital Encounter OR [facility], Operating Room, [facility] Floor [address] [place] [address] Moise Chowdhury Jr., MD [address] [place] [address] [place] [address] 11/10/2023 9:45 AM EDT Procedure Only Urology [facility] [address] [place] [address] [place] [address] Moise Chowdhury Jr., MD [address] [place] [address] [place] [address] 01/13/2024 10:08 AM EDT Hospital Encounter OR [facility], Operating Room, [facility] - [address] [place] [address] [address] [place] [address] Joby Mane, DO [address] [place] [address] 01/13/2024 10:08 AM EDT - 01/13/2024 10:46 AM EDT Surgery OR [facility], Operating Room, [address] [place] [address] Joby Mane, DO [address] [place] [address] COLONOSCOPY FLEXIBLE PROXIMAL DIAGNOSTIC Scheduled Orders Name Type Priority Associated Diagnoses Orde r Schedule CULTURE, URINE, QUANTITATIVE Lab Routine History of kidney stones Expected: 10/11/2023, Expires: 10/10/2024 Scheduled Procedures Name Priority Associated Diagnoses Date/Ti me CYSTOURETHROSCOPY URETEROSCO PY WITH LITHOTRIPSY AND STENT INSERTION History of kidney stones COLONOSCOPY FLEXIBLE PROXIMA L DIAGNOSTIC Recall History of colon polyps 01/13/2024 10:08 AM EDT Scheduled Referrals Name Type Priority Associated Diagnoses Orde r Schedule NEPHROLOGY REFERRAL OP Referral Within 30 days (routine) History of kidney stones Ordered: 10/11/2023 Health Maintenance Due Date Last Done Comments [...] Additional history exists Albumin/Creatinine Ratio 08/16/2024 08/17/2023, 03/3 05/2021 Diabetic Eye Exam 08/16/2024 08/17/2023, , 07/31/2021 [...] Procedure Name Priority Date/Time Associated Diagnosis Comments XR CHEST 2 VIEWS Routine 10/11/2023 4:36 PM EDT History of kidney stones documented in this encounter Results * XR CHEST 2 VIEWS (10/11/2023 4:36 PM EDT) Anatomical Region Laterality Modality Chest Computed Radiogr aphy 10/11/2023 9:46 PM EDT Impressions 10/11/2023 9:43 PM EDT IMPRESSION No active disease. Narrative 10/11/2023 9:43 PM EDT EXAM XR CHEST 2 VIEWS - 10/11/2023 4:36 pm HISTORY "preop" TECHNIQUE Frontal and lateral views of the chest were obtained. COMPARISON 07/14/2022 FINDINGS The lungs are clear. There is no pleural effusion or pneumothorax. The cardiomediastinal silhouette is within normal limits. Procedure Note Wei Enamorado MD - 10/11/2023 EXAM XR CHEST 2 VIEWS - 10/11/2023 4:36 pm HISTORY "preop" TECHNIQUE Frontal and lateral views of the chest were obtained. COMPARISON 07/14/2022 FINDINGS The lungs are clear. There is no pleural effusion or pneumothorax. Thecardiomediastinal silhouette is within normal limits. IMPRESSION IMPRESSION No active disease. Noel Ayala MD RADIOLOGY (RAD G ENERAL) * EKG (10/11/2023 4:19 PM EDT) 10/11/2023 4:19 PM EDT Narrative Procedure Note Rajinder Ken MD - 10/11/2023 4:19 PM EDT REASON FOR STUDY: preop;preop CONCLUSIONS: Normal sinus rhythm Normal ECG No previous ECGs available Ventricular Rate: 61 Atrial Rate: 61 HI Interval: 162 QRS Duration: 88 QT/QTc: 380/382 ms P-R-T Marble: 44 : 64 : 39 degrees Noel Ayala MD EKG [facility] documented in this encounter Visit Diagnoses Diagnosis History of kidney stones- Primary Personal history of urinary calculi History of kidney stones- Primary Personal history of urinary calculi History of kidney stones Personal history of urinary calculi History of colon polyps Personal history of colonic polyps documented in this encounter Advance Directives * [...] Advance Directives occurred with: Patient Care Teams Director Vaccine Relationship Specialty Start Date End Date Ame Schwartz CRNP [address] [facility] [place] [address] PCP - General Nurse Practitioner 08/17/23 documented as of this encounter
--- OUTSIDE RECORDS SUMMARY | 2023-11-03 05:00 | External Medical Summary | Summary of Care ---
Author Name Unknown Organization [facility] Address [address] [facility] [address] Phone [phone] Care Team Providers Care Basketball Commentator Name Role Phone Ame Schwartz Primary Care Provider Reason for Visit * Reason Comments Outpatient Testing Encounter Details Date Type Department Care Team (Late st Contact Info) Description 10/25/2023 8:00 AM EDT Laboratory Laboratory, [facility] [address] [place] [address] [place], Laboratory [address] [place] [address] Type 2 diabetes mellitus without complication, without long-term current use of insulin (HCC); History of kidney stones Allergies Active Allergy Reactions Criticality Noted Date [...] on file documented as of this encounter Plan of Treatment Upcoming Encounters Date Type Department Care Team (Latest Contact Info) Description 11/01/2023 10:08 AM EDT Hospital Encounter OR [facility], Operating Room, [facility] - [facility] [address] [place] [address] Moise Chowdhury Jr., MD [address] [place] [address] [place] [address] 11/01/2023 10:08 AM EDT - 11/01/2023 11:21 AM EDT Surgery OR [facility], Operating Room, [facility] Floor [address] [place] [address] Moise Chowdhury Jr., MD [address] [place] [address] [place] [address] CYSTOURETHROSCOPY URETEROSCOPY WITH LITHOTRIPSY AND STENT INSERTION 11/10/2023 9:45 AM EDT Procedure Only Urology [place] [facility] [address] [place] [address] [place] [address] Moise Chowdhury Jr., MD [address] [facility] [address] [place] [address] 01/13/2024 10:12 AM EDT Hospital Encounter OR [facility], Operating Room, [facility] - [address] [place] [address] [address] [place] [address] Joby Mane, DO [address] [place] [address] 01/13/2024 10:12 AM EDT - 01/13/2024 10:50 AM EDT Surgery OR [facility], Operating Room, [facility] - [address] [place] [address] [address] [place] [address] Joby Mane, DO [address] [place] [address] COLONOSCOPY FLEXIBLE PROXIMAL DIAGNOSTIC Pending Results Name Type Priority Associated Diagnoses Date /Time ALBUMIN / CREATININE RATIO, URINE Lab Routine Type 2 diabetes mellitus without complication, without long-term current use of insulin ([facility]) 10/25/2023 8:06 AM EDT CULTURE, URINE, QUANTITATIVE Lab Routine History of kidney stones 10/25/2023 8:06 AM EDT Scheduled Procedures Name Priority Associated Diagnoses Date/Ti [...] Not on filedocumented as of this encounter Visit Diagnoses Diagnosis History of kidney stones- Primary Personal history of urinary calculi Type 2 diabetes mellitus without complication, without long-term current use of insulin (HCC) History of kidney stones Personal history of [...] Advance Directives occurred with: Patient Care Teams Basketball Commentator Relationship Specialty Start Date End Date Ame Schwartz CRNP [address] [place] [address] PCP - General Nurse Practitioner 08/17/23 documented as of this encounter
--- OUTSIDE RECORDS SUMMARY | 2023-11-03 05:00 | External Medical Summary ---
Author Name Unknown Address Unknown Organization K01:[facility] - [address] [place] [id number] Laboratory Report Ordering Provider Test Date Status JUANCARLOS RUIZ 10/25/2023 08:06:38 Final Observation Date Value Abnormality Reference (Units) Status Bacteria identified in Specimen by Culture 10/25/2023 08:06:38 No significant growth Final Test: Culture, Urine, Quanti tative
Specimen Source: Urine, Clean Catch
Specimen Type: Urine
Specimen Date: 10/25/2023 0806
Result Date: 10/26/2023 0850
Result Status: Final result
Resulting Lab: [facility]
[address]
[facility] [address]

CULTURE

No significant growth

null Performing Location [facility] - [address] [facility] [address]
--- OUTSIDE RECORDS SUMMARY | 2023-11-03 05:00 | External Medical Summary ---
Author Name Unknown Address Unknown Organization : Laboratory Report Ordering Provider Test Date Status BRADFORD YUSUF JR 11/01/2023 08:17:45 Final Observation Date Value Abnormality Reference (Units ) Status Glucose Point of Care 11/01/2023 08:17:45 113 70-120 (mg/dL) Final Performing Location
--- OUTSIDE RECORDS SUMMARY | 2023-11-03 05:01 | External Medical Summary | Summary of Care ---
Author Name Unknown Organization [facility] Address [address] [facility] [place] [address] Phone [phone] Care Team Providers Care Yard Laborer Name Role Phone Ame Schwartz Primary Care Provider Reason for Referral * Evaluate & Treat - Unlimited Visits (Within 3 days (urgent)) - Pending Review Specialty Diagnoses / Procedures Referred By Mery t Referred To Contact Urology Diagnoses Urinary tract obstruction due to kidney stone Michael Villanueva MD [address] [place] [address] Referral ID Status Reason Start Date Expiration Date Visits Requested Visits Authorized [id number] Pending Review Specialty Services Required 09/23/[phone] Question Answer Referral Priority Within 3 days (urgent) Where should this appointment be scheduled? [facility] What is the patient being referred for? Kidney Stone/Calculi Has Imaging been done? Yes Comments Right 6mm UPJ stone - initiated on flomax/lasix on 09/22 (wont take until 09/23) Reason for Visit * Reason Onset Date Comments Test Results 09/23/2023 CT test results Encounter Details Date Type Department Care Team (Late st Contact Info) Description 09/23/2023 Telephone Family Practice [facility] [address] [place] [address] Ame Schwartz CRNP [address] [place] [address] Test Results (CT test results ) Allergies Active Allergy Reactions Criticality Noted Date Comments Amoxicillin-Pot Clavulanate Edema face/lips/tongue,Hives,Itc miguel High 10/29/2017 Meclizine Tachycardia 12/19/2001 Oxycodone-Acetaminophen Itching Medium 11/09/2017 documented as of this encounter (statuses as of 09/24/2023) Medications Medication Sig Dispensed Refills Start Date End Date Status Albuterol Sulfate (ALBUTEROL HFA) 108 (90 BASE) MCG/ACT inhalerIndications :Mild intermittent reactive airway disease without complication Inhale 2 Puffs by mouth 4 times a day. 1 Inhaler 1 03/08/2019 Active D-Care Glucometer w/Device KitIndications:Typ e 2 diabetes mellitus without complication, without long-term current use of insulin (HCC) Use as directed. 1 Kit 08/09/2020 Active LancetsIndications :Type 2 diabetes mellitus without complication, without long-term current use of insulin (HCC) Use as directed. 100 Each 11 08/09/2020 Active Glucose Blood In Vitro StripIndications:T ype 2 diabetes mellitus without complication, without long-term current use of insulin (HCC) Use as directed. 100 Strip 11 08/09/2020 Active SUMAtriptan Succinate 100 MG Oral Tablet PLEASE SEE ATTACHED FOR DETAILED DIRECTIONS 11/28/2021 Active Mens 50+ Multi Vitamin/Min Oral Tablet Take by mouth. Active metFORMIN HCl ER 500 MG Oral Tablet Extended Release 24 Hour (Glucophage XR)Indications:Typ e 2 diabetes mellitus without complication, without long-term current use of insulin (HCC) TAKE 1 TAB TWICE DAILY WITH MEALS 180 Tablet 3 02/15/2023 Active Lisinopril 10 MG Oral Tablet (Prinivil)Indicati ons:HTN, goal below 130/80 Take 1 Tablet by mouth in the morning. 90 Tablet 1 08/17/2023 Active Cetirizine HCl 10 MG Oral Tablet (ZyrTEC) Take 1 Tablet by mouth daily as needed for Rhinitis. Active Tamsulosin HCl 0.4 MG Oral Capsule (Flomax) Take 1 Capsule by mouth in the morning. 10 Capsule 09/23/2023 Active Furosemide 20 MG Oral Tablet (Lasix) Take 1 Tablet by mouth in the morning. 5 Tablet 09/23/2023 Active Ketorolac Tromethamine 10 MG Oral Tablet (Toradol) Take 1 Tablet by mouth 2 times a day as needed for Pain, Severe. Do not take for longer than 5 days 10 Tablet 09/23/2023 Active Ketorolac Tromethamine 10 MG Oral Tablet (Toradol) Take 1 Tablet by mouth 2 times a day as needed for Pain, Severe. Do not take for longer than 5 days 10 Tablet 09/14/2023 Discontinue d(Refill) documented as of this encounter (statuses as of 09/24/2023) Active Problems Problem Noted Date Diagnosed Date Polyp of colon 08/17/2023 Kidney stone on [...] as of this encounter (statuses as of 09/24/2023) Resolved Problems Problem Noted Date Diagnosed Date [...] as of this encounter (statuses as of 09/24/2023) Immunizations Name Administration Dates Next Due Pneumococcal [...] encounter Miscellaneous Notes * Telephone Encounter - Tavo Crespo OSA - 09/24/2023 9:06 AM EDT Lmom to schedule * Telephone Encounter - Michael Villanueva MD - 09/23/2023 4:32 PM EDT Sent to scheduling for urology referral. I did speak to the patient personally via phone re: plan. * Telephone Encounter - Michael Villanueva MD - 09/23/2023 4:26 PM EDT Called and spoke with patient. 6mm right UPJ stone. Hx of stones before. Feels run down. Urinating ok. No fevers. Wondering if anything can be done to help. Order for flomax, 3 days of lasix PO in AM, and pain medication called in. Referral also made to urology as this stone is in the intermediate zone for passage and may or may not pass at 6mm. * Telephone Encounter - Eva Caldwell OSA - 09/23/2023 12:28 PM EDT Who is Requesting Test Results: Horacio Padilla Primary Care Provider : ORLY Cooper Tests Results Requested : CT Date of Test : 09/20/2023 [facility] Ordering Provider: Dr. Villanueva Patient has been made aware that the turnaround time for test results are typically as follows: Laboratory results = within 2-3 days ([facility]), 3-5 days (Non-[facility], ie. [facility]) Urine Cultures = within 2-3 days depending on growth within the culture Pathology results (biopsy results/PAP) = 1-2 weeks Radiology results = about 1 week Cologuard results = within 2 weeks from the shipment date COVID testing = about 24 hours documented in this encounter Plan of Treatment Upcoming Encounters Date Type Department Care Team (Latest Contact Info) Description 01/13/2024 10:28 AM EDT Hospital Encounter OR [facility], Operating Room, [facility] - 4th Floor [address] [place] [address] Joby Mane, DO [address] [place] [address] 01/13/2024 10:28 AM EDT - 01/13/2024 11:06 AM EDT Surgery OR [facility], Operating Room, [facility] - 4th Floor [address] [place] [address] Joby Mane, [address] [place] [address] COLONOSCOPY FLEXIBLE PROXIMAL DIAGNOSTIC Scheduled Procedures Name Priority Associated Diagnoses Date/Ti me COLONOSCOPY FLEXIBLE PROXIMAL DIAGNOSTIC Recall History of colon polyps 01/13/2024 10:28 AM EDT Scheduled Referrals Name Type Priority Associated Diagnoses Orde r Schedule ADULT/PEDS UROLOGY REFERRAL OP Referral Within 3 days (urgent) Urinary tract obstruction due to kidney stone Ordered: 09/23/2023 Health Maintenance Due Date Last Done Comments [...] 11/28/2021, 10/16/19 18 COVID-19 Vaccine (1 - season) 2023 Influenza Vaccine (FLU shot) (Season [...] as of this encounter Visit Diagnoses Diagnosis Urinary tract obstruction due to kidney stone- Primary Calculus of kidney History of colon polyps Personal history of [...] Advance Directives occurred with: Patient Care Teams Yard Laborer Relationship Specialty Start Date End Date Ame Schwartz CRNP [address] [place] [address] PCP - General Nurse Practitioner 08/17/23 documented as of this encounter
--- OUTSIDE RECORDS SUMMARY | 2023-11-03 05:01 | External Medical Summary | Summary of Care ---
Author Name Unknown Organization [facility] Address [address] [facility] [address] Phone [phone] Care Team Providers Care Photo Checker And Assembler Name Role Phone Ame Cary Primary Care Provider Reason for Referral * Evaluate & Treat - Unlimited Visits (Within 30 days (routine)) - Authorized Specialty Diagnoses / Procedures Referred By Conthoda t Referred To Contact Nephrology Diagnoses History of kidney stones [facility]el [facility]ala MD [facility] [address] [place] [address] Referral ID Status Reason Start Date Expiration Date Visits Requested Visits Authorized [id number] Authorized Specialty Services Required 10/11/[phone] Question Answer Referral Priority Within 30 days (routine) Where should this appointment be scheduled? [facility] What condition is this patient being seen [...] to kidney stone Michael Villanueva [facility] [address] [facility] [address] Referral ID Status Reason Start Date Expiration Date Visits Requested Visits Authorized [id number] Pending Review Specialty Services Required 09/23/[phone] Encounter Details Date Type Department Care Team (Late st Contact Info) Description 10/11/2023 4:00 PM EDT Office Visit Urology, [facility] [address] [place] [address] Noel Ayala MD [facility] [address] [place] [address] History of kidney stones* Allergies Active Allergy Reactions Criticality Noted Date Comments Amoxicillin-Pot Clavulanate Edema face/lips/tongue,Hives,Itc miguel High 10/29/2017 Meclizine Tachycardia 12/19/2001 Oxycodone-Acetaminophen Itching Medium 11/09/2017 documented as of this encounter (statuses as of 10/11/2023) Medications Medication Sig Dispensed Refills Start Date [...] as of this encounter (statuses as of 10/11/2023) Active Problems Problem Noted Date Diagnosed Date [...] as of this encounter (statuses as of 10/11/2023) Resolved Problems Problem Noted Date Diagnosed Date [...] as of this encounter (statuses as of 10/11/2023) Immunizations Name Administration Dates Next Due Pneumococcal [...] Ayala MD - 10/11/2023 4:00 PM EDT [id number] PCP: AME CARY [address] [place] [address] [phone] Horacio Padilla is a 53 year old [...] Lab Results Component Value Date/Time [facility].32 07/14/2022 04:26 PM Current Outpatient Medications [...] on bx, diverticulosis, repeat 5 yrs / [facility] CYSTO/URETERO W/LITHOTRIPSY Left 07/16/2022 CYSTOURETHROSCOPY URETEROSCOPY WITH LITHOTRIPSY AND STENT INSERTION performed by Noel Ayala MD at OR [facility] DENTAL SURGERY PROCEDURE NEC 2008 KNEE ARTHROSCOPY/SURGERY 08/2013 MISCELLANEOUS ORDER ([facility] ONLY) right finger tendon reattachment MISCELLANEOUS ORDER ([facility] ONLY) Right 10/25/2017 open repair of right inguinal hernia with mesh [facility] Dr. Beckman 10/25/17 REMOVE TONSILS & ADENOIDS, UNDER 12 REPAIR INITIAL INGUINAL HERNIA REDUCIBLE AGE 5 OR MORE 01/07/12 Bilateral laparoscopic bilateral hernia repair with mesh 01/07/12 Dr Flores MNMX REPAIR INITIAL INGUINAL HERNIA REDUCIBLE AGE 5 OR MORE Right 10/25/2017 10/25/2017 right inguinal hernia repair - [facility] Dr. Beckman VASECTOMY Past Medical History: Diagnosis Date Depression hx during previous marriage DM (diabetes mellitus) ([facility]) Lipid disorder prior on meds Migraine hx of dermoid cyst as well on MRI Obesity, morbid (more than 100 lbs over ideal weight or BMI > 40) ([facility]) 05/29/2013 Patient Active Problem List Diagnosis GERD (gastroesophageal reflux disease) Bilateral chronic knee pain Migraine without aura and without status migrainosus, not intractable HTN, goal below 130/80 Type 2 diabetes mellitus without complication, without long-term current use of insulin ([facility]) Diverticulitis of colon Mild intermittent [...] in this encounter Nursing Notes * Che Josue LPN - 10/11/2023 3:42 PM EDT 3 month ret for stones, renal US results. Right back pain, radiating to side today. Worse with ambulation. Not taking tamsulosin. documented in this encounter Miscellaneous Notes * Addendum Note - Che Josue LPN - 10/11/2023 4:11 PM EDTAddended by: CHE JOSUE on: 10/11/2023 04:11 PM Modules accepted: Orders documented in this encounter Plan of Treatment Upcoming Encounters Date Type Department Care Team (Latest Contact Info) Description 01/13/2024 10:08 AM EDT Hospital Encounter OR [facility], Operating Room, [facility] - 4th Floor [address] [place] [id number] Joby Mane, DO [address] [place] [address] 01/13/2024 10:08 AM EDT - 01/13/2024 10:46 AM EDT Surgery OR [facility], Operating Room, [facility] - 4th Floor [address] [place] [address] Jboy Mane, DO [address] [place] [address] COLONOSCOPY FLEXIBLE PROXIMAL DIAGNOSTIC Scheduled Orders Name Type Priority Associated Diagnoses Orde r Schedule EKG EKG Routine History of kidney stones Expected: 10/11/2023 (Approximate), Expires: 11/09/2024 XR CHEST 2 VIEWS Medical Imaging Routine History of kidney stones Ordered: 10/11/2023 CULTURE, URINE, QUANTITATIVE Lab Routine History of kidney stones Expected: 10/11/2023, Expires: 10/10/2024 Scheduled Procedures Name Priority Associated Diagnoses Date/Ti me COLONOSCOPY FLEXIBLE PROXIMA L DIAGNOSTIC Recall History of colon polyps 01/13/2024 10:08 AM EDT CYSTOURETHROSCOPY URETEROSCO PY WITH LITHOTRIPSY AND STENT INSERTION History of kidney stones Scheduled Referrals Name Type Priority Associated Diagnoses [...] Advance Directives occurred with: Patient Care Teams Photo Checker And Assembler Relationship Specialty Start Date End Date Ame Cary CRNP [address] [place] [address] PCP - General Nurse Practitioner 08/17/23 documented as of this encounter
--- OUTSIDE RECORDS SUMMARY | 2023-11-03 05:01 | External Medical Summary | Summary of Care ---
Author Name Unknown Organization [facility] Address [address] [facility] [place] [address] Phone [phone] Care Team Providers Care Perioperative Tech Name Role Phone Ame Schwartz Primary Care Provider Reason for Visit * Reason Onset Date Comments Scheduling 08/17/2023 Encounter Details Date Type Department Care Team (Late st Contact Info) Description 08/17/2023 Telephone Family Practice [facility] [address] [place] [address] Ame Schwartz CRNP [address] [place] [address] Scheduling Allergies Active Allergy Reactions Criticality Noted Date Comments Amoxicillin-Pot Clavulanate Edema face/lips/tongue,Hives,Itc miguel High 10/29/2017 Meclizine Tachycardia 12/19/2001 Oxycodone-Acetaminophen Itching Medium 11/09/2017 documented as of this encounter (statuses as of 09/23/2023) Medications Medication Sig Dispensed Refills Start Date [...] the morning. 90 Tablet 1 08/17/2023 Active documented as of this encounter (statuses as of 09/23/2023) Active Problems Problem Noted Date Diagnosed Date [...] as of this encounter (statuses as of 09/23/2023) Resolved Problems Problem Noted Date Diagnosed Date Resolved Date BMI 50.0-59.9, adult 06/19/2022 024 Thoracic degenerative disc disease 06/19/2022 08/17/2023 Primary osteoarthritis of left knee 06/19/2022 08/17/2023 Body mass index (BMI) of 40. 0 to 44.9 in adult 12/08/2021 08/17/2023 Overview: Per Obesity protocol BMI 50.0-59.9, adult 11/28/2021 08/11/2 022 Overview: Per Obesity protocol Body mass [...] as of this encounter (statuses as of 09/23/2023) Immunizations Name Administration Dates Next Due Pneumococcal [...] encounter Miscellaneous Notes * Telephone Encounter - Saray Pulliam OSA - 09/23/2023 12:49 PM EDT Ashley'd 01/13/24 at [facility]. * Telephone Encounter - Saray Pulliam OSA - 09/23/2023 12:20 PM EDT Lmm for pt. * Telephone Encounter - Trisha Roper OSA - 09/16/2023 10:26 AM EDT Lmm CHARLIE Drake 09/16/2023 10:26 AM * Telephone Encounter - Randy Land OSA - 08/17/2023 11:48 AM EDT Please call pt to schedule colonoscopy documented in this encounter Plan of Treatment Upcoming Encounters Date Type Department Care Team (Latest Contact Info) Description 01/13/2024 10:28 AM EDT Hospital Encounter OR [facility], Operating Room, [facility] - 4th Floor [address] [place] [id number] Joby Mane, DO [address] [place] [address] 01/13/2024 10:28 AM EDT - 01/13/2024 11:06 AM EDT Surgery OR [facility], Operating Room, [facility] - 4th Floor [address] [place] [address] Joby Mane, DO [address] [place] [address] COLONOSCOPY FLEXIBLE PROXIMAL DIAGNOSTIC Scheduled Procedures Name Priority Associated Diagnoses Date/Ti me COLONOSCOPY FLEXIBLE PROXIMAL DIAGNOSTIC Recall History of colon polyps 01/13/2024 10:28 AM EDT Health Maintenance Due Date Last [...] Advance Directives occurred with: Patient Care Teams Perioperative Tech Relationship Specialty Start Date End Date Ame Schwartz CRNP [address] [place] [address] PCP - General Nurse Practitioner 08/17/23 documented as of this encounter
--- OUTSIDE RECORDS SUMMARY | 2023-11-03 05:01 | External Medical Summary | Summary of Care ---
Author Name Unknown Organization [facility] Address [address] [facility] [address] Phone [phone] Care Team Providers Care Receiving Associate Store Name Role Phone Ame Cary Primary Care Provider Reason for Referral * Evaluate & Treat - Unlimited Visits (Within 30 days (routine)) - Authorized Specialty Diagnoses / Procedures Referred By Conthoda t Referred To Contact Nephrology Diagnoses History of kidney stones [facility]el [facility]ala MD [facility] [address] [place] [address] Referral ID Status Reason Start Date Expiration Date Visits Requested Visits Authorized [id number] Authorized Specialty Services Required 10/11/[phone] [...] to kidney stone Michael Villanueva MD [facility] [address] Referral ID Status Reason Start Date Expiration Date Visits Requested Visits Authorized [id number] Pending Review Specialty Services Required 09/23/[phone] Encounter Details Date Type Department Care Team (Late st Contact Info) Description 10/11/2023 4:00 PM EDT Office Visit Urology, [facility] [address] [place] [address] [facility]el [facility] MD [facility] [address] [place] [address] History of kidney stones* Allergies Active Allergy [...] Ayala MD - 10/11/2023 4:00 PM EDT [id number] PCP: AME CARY [address] [place] [address] [phone] Horacio Padilla is a 53 year old [...] Lab Results Component Value Date/Time PSA - [facility] 1.32 07/14/2022 04:26 PM Current Outpatient Medications [...] performed by Noel Ayala MD at OR [facility] DENTAL SURGERY PROCEDURE NEC 2008 KNEE ARTHROSCOPY/SURGERY 08/2013 MISCELLANEOUS ORDER ([facility] ONLY) right finger tendon reattachment MISCELLANEOUS ORDER ([facility] ONLY) Right 10/25/2017 open repair of [...] hx during previous marriage DM (diabetes mellitus) ([facility]) Lipid disorder prior on meds Migraine hx of dermoid cyst as well on MRI Obesity, morbid (more than 100 lbs over ideal weight or BMI > 40) ([facility]) 05/29/2013 Patient Active Problem List Diagnosis GERD (gastroesophageal reflux disease) Bilateral chronic knee pain Migraine without aura and without status migrainosus, not intractable HTN, goal below 130/80 Type 2 diabetes mellitus without complication, without long-term current use of insulin ([facility]) Diverticulitis of colon Mild intermittent [...] Notes * Che Josue LPN - 10/11/2023 4:11 PM EDT Patient to be scheduled at [facility] for Cystoscopy, right retrograde pyelography, right-sided [...] given for review at later date. Che Josue LPN 10/11/2023 * Che Josue LPN - 10/11/2023 3:42 [...] Department Care Team (Latest Contact Info) Description 10/11/2023 4:25 PM EDT Imaging Radiology [facility] [address] [place] [address] 01/13/2024 10:08 AM EDT Hospital Encounter OR [facility], Operating Room, [facility] Floor [address] [place] [address] Joby Mane, DO [address] [place] [address] 01/13/2024 10:08 AM EDT - 01/13/2024 10:46 AM EDT Surgery OR [facility], Operating Room, [facility] Floor [address] [place] [address] Joby Mane, [address] [place] [address] COLONOSCOPY FLEXIBLE PROXIMAL DIAGNOSTIC Scheduled Orders Name [...] Advance Directives occurred with: Patient Care Teams Receiving Associate Store Relationship Specialty Start Date End Date Ame Cary CRNP [address] [place] [address] PCP - General Nurse Practitioner 08/17/23 documented as of this encounter
--- OUTSIDE RECORDS SUMMARY | 2023-11-03 05:01 | External Medical Summary | Summary of Care ---
Author Name Unknown Organization [facility] Address [address] [facility] [place] [address] Phone [phone] Care Team Providers Care Mechanism Inspector Name Role Phone Efren Ame VILLALBA Primary Care Provider Encounter Details Date Type Department Care Team (Late st Contact Info) Description 10/11/2023 Telephone Urology, [facility] [address] [facility] [place] [address] Noel Ayala MD [address] [place] [address] [place] [address] Allergies Active Allergy Reactions Criticality Noted [...] ureteral stent placement with possible string. (At [facility]) Can be with Dr Ayala or Dr [...] 01/13/2024 10:08 AM EDT Hospital Encounter OR [facility], Operating Room, [facility] - 4th Floor [address] [place] [address] Joby Mane, DO [address] [place] [address] 01/13/2024 10:08 AM EDT - 01/13/2024 10:46 AM EDT Surgery OR [facility], Operating Room, [facility] - 4th Floor [address] [place] [address] Joby Mane, DO [address] [place] [address] COLONOSCOPY FLEXIBLE PROXIMAL DIAGNOSTIC Scheduled Procedures Name Priority Associated Diagnoses Date/Ti me COLONOSCOPY FLEXIBLE PROXIMA L DIAGNOSTIC Recall History of colon polyps 01/13/2024 10:08 AM EDT CYSTOURETHROSCOPY URETEROSCO PY WITH LITHOTRIPSY AND STENT INSERTION History of kidney stones Health Maintenance Due Date Last Done Comments [...] Screening 11/28/2022 11/28/2021, 10/16/19 18 COVID-19 Vaccine ( - 2022- season) 2023 Influenza Vaccine (FLU [...] Advance Directives occurred with: Patient Care Teams Mechanism Inspector Relationship Specialty Start Date End Date Ame Schwartz CRNP [address] [place] [address] PCP - General Nurse Practitioner 08/17/23 documented as of this encounter
--- OUTSIDE RECORDS SUMMARY | 2023-11-03 05:01 | External Medical Summary | Summary of Care ---
Author Name Unknown Organization [facility] Address [address] [facility] [place] [address] Phone [phone] Care Team Providers Care Nc Machinist Name Role Phone Ame Cary Primary Care Provider Reason for Referral * Evaluate & Treat - Unlimited Visits (Within 30 days (routine)) - Authorized Specialty Diagnoses / Procedures Referred By Conthoda t Referred To Contact Nephrology Diagnoses History of kidney stones [facility]el [facility]ala MD [facility] [address] [address] Referral ID Status Reason Start Date Expiration Date Visits Requested Visits Authorized [id number] Authorized Specialty Services Required 10/11/[phone] [...] to kidney stone Michael Vill[facility]ue[facility] MD [facility] [address] Referral ID Status Reason Start Date Expiration Date Visits Requested Visits Authorized [id number] Pending Review Specialty Services Required 09/23/[phone] Encounter Details Date Type Department Care Team (Late st Contact Info) Description 10/11/2023 4:00 PM EDT Office Visit Urology, [facility] [address] [place] [address] Noel Ayala MD [facility] [address] [place] [address] History of kidney stones* Allergies Active Allergy [...] Ayala MD - 10/11/2023 4:00 PM EDT [id number] PCP: AME CARY [address] [place] [address] [phone] Horacio Padilla is a 53 year old [...] Lab Results Component Value Date/Time [facility] 07/14/2022 04:26 PM Current Outpatient Medications [...] on bx, diverticulosis, repeat 5 yrs / [facility] CYSTO/URETERO W/LITHOTRIPSY Left 07/16/2022 CYSTOURETHROSCOPY URETEROSCOPY WITH LITHOTRIPSY AND STENT INSERTION performed by Noel Ayala MD at OR [facility] DENTAL SURGERY PROCEDURE NEC 2008 KNEE ARTHROSCOPY/SURGERY 08/2013 MISCELLANEOUS ORDER ([facility] ONLY) right finger tendon reattachment MISCELLANEOUS ORDER ([facility]) Right 10/25/2017 open repair of right inguinal hernia with mesh [facility] Dr. Beckman 10/25/17 REMOVE TONSILS & ADENOIDS, UNDER 12 REPAIR INITIAL INGUINAL HERNIA REDUCIBLE AGE 5 OR MORE 01/07/12 Bilateral laparoscopic bilateral hernia repair with mesh 01/07/12 Dr Flores MNMX REPAIR INITIAL INGUINAL HERNIA REDUCIBLE AGE 5 OR MORE Right 10/25/2017 10/25/2017 right inguinal hernia repair - [facility] Dr. Beckman VASECTOMY Past Medical History: Diagnosis Date Depression hx during previous marriage DM (diabetes mellitus) ([facility]) Lipid disorder prior on meds Migraine hx of dermoid cyst as well on MRI Obesity, morbid (more than 100 lbs over ideal weight or BMI > 40) ([facility]) 05/29/2013 Patient Active Problem List Diagnosis GERD (gastroesophageal reflux disease) Bilateral chronic knee pain Migraine without aura and without status migrainosus, not intractable HTN, goal below 130/80 Type 2 diabetes mellitus without complication, without long-term current use of insulin ([facility]) Diverticulitis of colon Mild intermittent asthma [...] PM EDT Patient to be scheduled at [facility] for Cystoscopy, right retrograde pyelography, right-sided ureteroscopy [...] Description 10/11/2023 4:25 PM EDT Imaging Radiology [facility] [address] [place] [address] 01/13/2024 10:08 AM EDT Hospital Encounter OR [facility], Operating Room, [facility] Floor [address] [place] [address] Joby Mane, DO [address] [place] [address] 01/13/2024 10:08 AM EDT - 01/13/2024 10:46 AM EDT Surgery OR [facility], Operating Room, [facility] Floor [address] [place] [address] Joby Mane, [address] [place] [address] COLONOSCOPY FLEXIBLE PROXIMAL DIAGNOSTIC Scheduled Orders Name [...] Advance Directives occurred with: Patient Care Teams Nc Machinist Relationship Specialty Start Date End Date Ame Cary CRNP [address] [place] [address] PCP - General Nurse Practitioner 08/17/23 documented as of this encounter
--- OUTSIDE RECORDS SUMMARY | 2023-11-03 05:01 | External Medical Summary | Summary of Care ---
Author Name Unknown Organization [facility] Address [address] [facility] [place] [address] Phone [phone] Care Team Providers Care Conventional Machinist Name Role Phone Ame Schwartz Primary Care Provider Reason for Referral * Evaluate & Treat - Unlimited Visits (Within 3 days (urgent)) - Pending Review Specialty Diagnoses / Procedures Referred By Mery t Referred To Contact Urology Diagnoses Urinary tract obstruction due to kidney stone iMchael Villanueva MD [address] [place] [address] Referral ID Status Reason Start Date Expiration Date Visits Requested Visits Authorized [id number] Pending Review Specialty Services Required 09/23/2023 999 [...] Contact Info) Description 09/23/2023 Telephone Family Practice [facility] [address] [place] [address] Ame Schwartz CRNP [address] [place] [address] Test Results (CT test results ) Allergies [...] encounter Miscellaneous Notes * Telephone Encounter - Michael Villanueva MD [...] of Test : 09/20/2023 Location of Test: [facility] Ordering Provider: Dr. Villanueva Patient has [...] 01/13/2024 10:28 AM EDT Hospital Encounter OR [facility], Operating Room, [facility] - 4th Floor [address] [place], [place] [address] [address] Joby Mane, DO [address] [place] [address] 01/13/2024 10:28 AM EDT - 01/13/2024 11:06 AM EDT Surgery OR [facility], Operating Room, [facility] - 4th Floor [address] [place] [address] Joby Mane, DO [address] [place] [address] COLONOSCOPY FLEXIBLE PROXIMAL DIAGNOSTIC Scheduled Procedures Name [...] Advance Directives occurred with: Patient Care Teams Conventional Machinist Relationship Specialty Start Date End Date Ame Schwartz CRNP [address] [place] [address] PCP - General Nurse Practitioner 08/17/23 documented as of this encounter
--- OUTSIDE RECORDS SUMMARY | 2023-11-03 05:01 | External Medical Summary | Summary of Care ---
Author Name Unknown Organization [facility] Address [address] [place] [address] Phone [phone] Care Team Providers Care Coagulation Operator Name Role Phone Ame Schawrtz Primary Care Provider Reason for Visit * Reason Onset Date Comments Advice 09/24/2023 Encounter Details Date Type Department Care Team (Late st Contact Info) Description 09/24/2023 Telephone Urology, [facility] [address] [facility] [place] [id number] Services, Scheduling [address] [place] [address] Advice Allergies Active Allergy Reactions Criticality Noted Date Comments Amoxicillin-Pot Clavulanate Edema face/lips/tongue,Hives,Itc miguel High 10/29/2017 Meclizine Tachycardia 12/19/2001 Oxycodone-Acetaminophen Itching Medium 11/09/2017 documented as of this encounter (statuses as of 09/29/2023) Medications Medication Sig Dispensed Refills Start Date [...] than 5 days 10 Tablet 09/23/2023 Active documented as of this encounter (statuses as of 09/29/2023) Active Problems Problem Noted Date Diagnosed Date [...] as of this encounter (statuses as of 09/29/2023) Resolved Problems Problem Noted Date Diagnosed Date [...] as of this encounter (statuses as of 09/29/2023) Immunizations Name Administration Dates Next Due Pneumococcal [...] Telephone Encounter - Tavo Crespo OSA - 09/29/2023 10:15 AM EDT Pt scheduled in [place] for October 17 with Radha Vuong. * Telephone Encounter - Kalie Faria OSA - 09/29/2023 9:44 AM EDT Pt call in to look in to this and would like to know if there is anything sooner than DEC please reach out to him Thank you ENT,Audiology,Urology Scheduling Please do not respond to me use pool ENT and Audio: is P [id number] Urology: P [id number] * Telephone Encounter - Che Comer LPN - 09/24/2023 9:47 AM EDT Urology scheduling is aware and working on this. * Telephone Encounter - Jane Zhao OSA - 09/24/2023 9:22 AM EDT Patient has a referral for a 6 millimeter calculus at the right ureteropelvic junction with mild upstream hydronephrosis documented in this encounter Plan of Treatment Upcoming Encounters Date Type Department Care Team (Latest Contact Info) Description 10/18/2023 1:30 PM EDT Office Visit Urology [facility] [address] [place] [address] [place] [address] Radha Vuong PA-C [address] [place] [address] [place] [address] 01/13/2024 10:28 AM EDT Hospital Encounter OR [facility], Operating Room, [facility] - 4th Floor [address] [place] [address] Joby Mane, DO [address] [place] [address] 01/13/2024 10:28 AM EDT - 01/13/2024 11:06 AM EDT Surgery OR [facility], Operating Room, [facility] - 4th Floor [address] [place] [address] Joby Mane, DO [address] [place] [address] COLONOSCOPY FLEXIBLE PROXIMAL DIAGNOSTIC Scheduled Procedures Name [...] 11/28/2022 11/28/2021, 10/16/19 18 COVID-19 Vaccine ( season) 2023 Influenza Vaccine (FLU shot) (Season Ended) 2024 Colonoscopy 01/19/2024 01/18/2019 Colorectal Cancer Screening 01/19/2024 HbA1c 02/16/2024 08/17/2023, 06/03, 11/28/2021, Additional history exists Albumin/Creatinine Ratio 08/16/2024 08/17/2023, 07/03 Diabetic Eye Exam 08/16/2024 08/17/2023, , 07/31/2021 [...] Advance Directives occurred with: Patient Care Teams Coagulation Operator Relationship Specialty Start Date End Date Ame Schwartz CRNP [address] [place] [address] PCP - General Nurse Practitioner 08/17/23 documented as of this encounter
--- OUTSIDE RECORDS SUMMARY | 2023-11-03 05:01 | External Medical Summary | Summary of Care ---
Author Name Unknown Organization [facility] Address [address] [facility] [place] [address] Phone [phone] Care Team Providers Care Auto Tire Recapper Name Role Phone Ame Schwartz Primary Care Provider Reason for Referral * Evaluate & Treat - Unlimited Visits (Within 3 days (urgent)) - Pending Review Specialty Diagnoses / Procedures Referred By Mery t Referred To Contact Urology Diagnoses Urinary tract obstruction due to kidney stone Michael Villanueva MD [address] [facility] [place] [address] Referral ID Status Reason Start Date Expiration Date Visits Requested Visits Authorized [id number] Pending Review Specialty Services Required 09/23/2023 999 [...] Contact Info) Description 09/23/2023 Telephone Family Practice [facility] [address] [place] [address] Ame Schwartz CRNP [address] [place] [address] Test Results (CT test results ) Allergies [...] of Test : 09/20/2023 Location of Test: [facility] Ordering Provider: Dr. Villanueva Patient [...] EDT Hospital Encounter OR [facility], Operating Room, [facility] - 4th Floor [address] [place], [place] [address] [address] Joby Mane, DO [address] [place] [address] 01/13/2024 10:28 AM EDT - 01/13/2024 11:06 AM EDT Surgery OR [facility], Operating Room, [facility] - 4th Floor [address] [place] [address] Joby Mane, DO [address] [place] [address] COLONOSCOPY FLEXIBLE PROXIMAL DIAGNOSTIC Scheduled Procedures Name [...] Advance Directives occurred with: Patient Care Teams Auto Tire Recapper Relationship Specialty Start Date End Date Ame Schwartz CRNP [address] [place] [address] PCP - General Nurse Practitioner 08/17/23 documented as of this encounter
--- OUTSIDE RECORDS SUMMARY | 2023-11-03 05:01 | External Medical Summary | Summary of Care ---
Author Name Unknown Organization [facility] Address [address] [facility] [place] [address] Phone [phone] Care Team Providers Care Director Speech Language Name Role Phone Ame Schwartz Primary Care Provider Reason for Referral * Evaluate & Treat - Unlimited Visits (Within 3 days (urgent)) - Pending Review Specialty Diagnoses / Procedures Referred By Mery t Referred To Contact Urology Diagnoses Urinary tract obstruction due to kidney stone Michael Villanueva MD [address] [employer] [place] [address] Referral ID Status Reason Start Date Expiration Date Visits Requested Visits Authorized [id number] Pending Review Specialty Services Required 09/23/2023 999 [...] Contact Info) Description 09/23/2023 Telephone Family Practice [facility] [address] [place] [address] Ame Schwartz CRNP [address] [place] [address] Test Results (CT test results ) Allergies [...] Encounter - Tavo Crespo OSA - 09/29/2023 10:13 AM EDT Pt is scheduled for October 17 at [place] with Radha Vuong.Pt is aware. * Telephone Encounter - Tavo Crespo OSA [...] of Test : 09/20/2023 Location of Test: [facility] Ordering Provider: Dr. Villanueva Patient has been [...] [address] [place] [address] [place] [address] Radha Vuong PA-C [address] [place] [address] [place] [address] 01/13/2024 10:28 AM EDT Hospital Encounter OR [facility], Operating Room, [facility] - 4th Floor [address] [place] [address] Joby Mane, DO [address] [place] [address] 01/13/2024 10:28 AM EDT - 01/13/2024 11:06 AM EDT Surgery OR [facility], Operating Room, [facility] - 4th Floor [address] [place] [address] Joby Mane, DO [address] [place] [address] COLONOSCOPY FLEXIBLE PROXIMAL DIAGNOSTIC Scheduled Procedures Name [...] Directives occurred with: Patient Care Teams Director Speech Language Relationship Specialty Start Date End Date Ame Schwartz CRNP [address] [place] [address] PCP - General Nurse Practitioner 08/17/23 documented as of this encounter
--- OUTSIDE RECORDS SUMMARY | 2023-11-03 05:01 | External Medical Summary | Summary of Care ---
Author Name Unknown Organization [facility] Address [address] [facility] [place] [address] Phone [phone] Care Team Providers Care Oven Operator Name Role Phone Ame Schwartz Primary Care Provider Reason for Visit * Reason Onset Date Comments Scheduling 08/17/2023 Encounter Details Date Type Department Care Team (Late st Contact Info) Description 08/17/2023 Telephone Family Practice [facility] [address] [place] [address] Ame Schwartz CRNP [address] [place] [address] Scheduling Allergies Active Allergy Reactions Criticality Noted [...] documented in this encounter Plan of Treatment Scheduled Procedures Name Priority Associated Diagnoses Date/Ti me COLONOSCOPY FLEXIBLE PROXIMAL DIAGNOSTIC Recall History of colon polyps Health Maintenance Due Date Last Done Comments [...] Advance Directives occurred with: Patient Care Teams Oven Operator Relationship Specialty Start Date End Date Ame Schwartz CRNP [address] [place] [address] PCP - General Nurse Practitioner 08/17/23 documented as of this encounter
--- OUTSIDE RECORDS SUMMARY | 2023-11-03 05:01 | External Medical Summary | Summary of Care ---
Author Name Unknown Organization [facility] Address [address] [facility] [place] [address] Phone [phone] Care Team Providers Care Educational Guidance Counselor Name Role Phone Ame Schwartz Primary Care Provider Reason for Referral * Evaluate & Treat - Unlimited Visits (Within 3 days (urgent)) - Pending Review Specialty Diagnoses / Procedures Referred By Mery t Referred To Contact Urology Diagnoses Urinary tract obstruction due to kidney stone Michael Villanueva MD [address] [employer] [place] [address] Referral ID Status Reason Start Date Expiration Date Visits Requested Visits Authorized [id number] Pending Review Specialty Services Required 09/23/2023 999 [...] Contact Info) Description 09/23/2023 Telephone Family Practice [facility] [address] [place] [address] Ame Schwartz CRNP [address] [place] [address] Test Results (CT test results ) Allergies [...] of Test : 09/20/2023 Location of Test: [facility] Ordering Provider: Dr. Villanueva Patient has [...] 01/13/2024 10:28 AM EDT Hospital Encounter OR [facility], Operating Room, [facility] - 4th Floor [address] [place] [address] Joby Mane, DO [address] [place] [address] 01/13/2024 10:28 AM EDT - 01/13/2024 11:06 AM EDT Surgery OR [facility], Operating Room, [facility] - 4th Floor [address] [place] [address] Joby Mane, [address] [place] [address] COLONOSCOPY FLEXIBLE PROXIMAL DIAGNOSTIC Scheduled Procedures Name [...] Advance Directives occurred with: Patient Care Teams Educational Guidance Counselor Relationship Specialty Start Date End Date Ame Schwartz CRNP [address] [place] [address] PCP - General Nurse Practitioner 08/17/23 documented as of this encounter
--- OUTSIDE RECORDS SUMMARY | 2023-11-03 05:02 | External Medical Summary ---
Author Name Unknown Address Unknown Organization K01:[facility] - [address] [facility] [place] [address] Laboratory Report Ordering Provider Test Date Status SOPHIE BERNARDOO 08/17/2023 11:46:47 Final Observation Date Value Abnormality Reference (Units ) Status Triglyceride 08/17/2023 11:46:47 287 Above high normal <=174 (mg/dL) Final Triglyceride Reference Range s (mg/dL):
<150 Acceptable
150-174 Borderline high
175-499 High
>=500 Very high Cholesterol 08/17/2023 11:46:47 253 Above high normal <200 (mg/dL) Final Total Cholesterol Reference Ranges (mg/dL):
<200 Desirable
200-239 Borderline high
>=240 High HDL 08/17/2023 11:46:47 46 >39 (mg/dL ) Final HDL Cholesterol Reference Ra nges (mg/dL):
>=60 High (Desirable)
<50 Low (Undesirable) For Females
<40 Low (Undesirable) For Males NON-HDL CHOLESTEROL 08/17/2023 11:46:47 207 Above high normal <=159 (mg/dL) Final Non-HDL Cholesterol Referenc e Range (mg/dL):
<100 Target level for high risk ASCVD patient
<130 Optimal for general population
130-159 Near optimal for general population
160-189 Borderline High
190-219 High
>=220 Very High LDL, (calculated) 08/17/2023 11:46:47 150 Above high n ormal <=129 (mg/dL) Final LDL Cholesterol Reference Ra nges (mg/dL):
<70 Target level for high risk ASCVD patient
<100 Optimal for general population
100-129 Near optimal for general population
130-159 Borderline high
160-189 High
>=190 Very high Performing Location [facility] - [address] [facility] [address]
--- OUTSIDE RECORDS SUMMARY | 2023-11-03 05:02 | External Medical Summary | Summary of Care ---
Author Name Unknown Organization [facility] Address [address] [facility] [address] Phone [phone] Care Team Providers Care Audio Experience Expert Name Role Phone Ame Schwartz Primary Care Provider Reason for Referral * Ancillary Services (Within 30 days (routine)) - Pending Review Specialty Diagnoses / Procedures Referred By Mery ibarra Referred To Contact Gastroenterology Diagnoses Polyp of colon, unspecified part of colon, unspecified type Ame Schwartz CRNP [address] [place] [address] Referral ID Status Reason Start Date Expiration Date Visits Requested Visits Authorized [id number] Pending Review Ancillary Services Required 08/17/[phone] Question Answer Referral Priority Within 30 days (routine) Where should this appointment be scheduled? [facility] Comments ALERT: Do not order for pediatric patients (18 years or younger). Cancel off screen and order PEDS GASTROENTEROLOGY CONSULT (Type: 1 visit only-Evaluate and Treat) The following Pt. Instructions are available: - Gastro Colonoscopy Prep Instructions [[id number]] - Gastro Colonoscopy Prep Instructions (German Version) [[id number]] Go to the Pt. Instructions section within the Visit Navigator to access. Colonoscopy ASGE Guidelines: Postadenoma resection: 1-2 tubular adenomas of less than 1 cm (5 yr intervals) ADDITIONAL INFORMATION 1. Is the patient on Coumadin? No 2. Is the patient on Pradaxa? No Reason for Visit * Reason Comments NEW PATIENT FORMER LESLIE. JULIOE DS REFILLS Encounter Details Date Type Department Care Team (Late st Contact Info) Description 08/17/2023 11:00 AM EDT Office Visit [facility] [address] [place] [address] Ame Schwartz CRNP [address] [place] [address] Type 2 diabetes mellitus without complication, without long-term current use of insulin (HCC)*; HTN, goal below 130/80; Bilateral chronic knee pain; Mild intermittent asthma without complication; Polyp of colon, unspecified part of colon, unspecified type; DM type 2 nursing care encounter (HCC) Allergies Active Allergy Reactions Criticality Noted Date Comments Amoxicillin-Pot Clavulanate Edema face/lips/tongue,Hives,Itc miguel High 10/29/2017 Meclizine Tachycardia 12/19/2001 Oxycodone-Acetaminophen Itching Medium 11/09/2017 documented as of this encounter (statuses as of 08/17/2023) Medications Medication Sig Dispensed Refills Start Date End Date Status Albuterol Sulfate (ALBUTEROL HFA) 108 (90 BASE) MCG/ACT inhalerIndications :Mild intermittent reactive airway disease without complication Inhale 2 Puffs by mouth 4 times a day. 1 Inhaler 1 9 Active D-Care Glucometer w/Device KitIndications:Typ e 2 diabetes mellitus without complication, without long-term current use of insulin (HCC) Use as directed. 1 Kit 0 1 Active LancetsIndications :Type 2 diabetes mellitus without complication, without long-term current use of insulin (HCC) Use as directed. 100 Each 11 1 Active Glucose Blood In Vitro StripIndications:T ype 2 diabetes mellitus without complication, without long-term current use of insulin (HCC) Use as directed. 100 Strip 11 1 Active SUMAtriptan Succinate 100 MG Oral Tablet PLEASE SEE ATTACHED FOR DETAILED DIRECTIONS 0 2 Active Mens 50+ Multi Vitamin/Min Oral Tablet Take by mouth. 0 Active metFORMIN HCl ER 500 MG Oral Tablet Extended Release 24 Hour (Glucophage XR)Indications:Typ e 2 diabetes mellitus without complication, without long-term current use of insulin (HCC) TAKE 1 TAB TWICE DAILY WITH MEALS 180 Tablet 3 3 Active Lisinopril 10 MG Oral Tablet (Prinivil)Indicati ons:HTN, goal below 130/80 Take 1 Tablet by mouth in the morning. 90 Tablet 1 4 Active Lisinopril 10 MG Oral Tablet (Prinivil)Indicati ons:HTN, goal below 130/80 TAKE 1 TABLET BY MOUTH EVERY DAY 90 Tablet 3 3 08/17/19 24 Discontinued(Re fill) Meloxicam 15 MG Oral TabletIndications: Thoracic degenerative disc disease,Acute left-sided low back pain without sciatica,Primary osteoarthritis of left knee TAKE 1 TABLET BY MOUTH IN THE MORNING. FOR PAIN.. 90 Tablet 0 3 08/17/19 24 Discontinued documented as of this encounter (statuses as of 08/17/2023) Active Problems Problem Noted Date Diagnosed Date [...] as of this encounter (statuses as of 08/17/2023) Resolved Problems Problem Noted Date Diagnosed Date [...] as of this encounter (statuses as of 08/17/2023) Immunizations Name Administration Dates Next Due Pneumococcal [...] Sign Reading Time Taken Comments Blood Pressure 136/80 08/17/2023 11:04 AM EDT Pulse 86 08/17/2023 11:04 AM EDT Temperature - - Respiratory Rate - - Oxygen Saturation 96% 08/17/2023 11:04 AM EDT Inhaled Oxygen Concentration - - Weight 135.2 kg (298 lb) 08/17/2023 11:04 AM EDT Height 167.6 cm (5' 6") 08/17/2023 11:04 AM EDT Body Mass Index 48.1 08/17/2023 11:04 AM EDT documented in this encounter Patient Instructions * Patient Instructions* Caroline Palacios LPN - 08/17/2023 11:29 AM EDT Images from the original note were not included. Diabetes: Keeping Feet Healthy Inspect your feet every day for signs of a problem. Diabetes can damage nerves in your feet and cause neuropathy. This condition makes it hard for you to feel injuries or sore spots. Diabetes can also change blood flow, making it harder for small problems, like a blister, to heal properly. In fact, minor injuries can quickly become serious infections that send you to the hospital. Practice self-care to protect your feet and keep them healthy. Take Special Care Inspect your feet daily for problems such as redness, blisters, cracks, dry skin, or numbness. Use a mirror to see the bottoms of your feet. Or, ask for help. Manage your diabetes. Monitor and control your blood sugar. Take all your medications as prescribed. Avoid walking barefoot, even indoors. Wash your feet with warm water and mild soap. Dry well, especially between toes. Dont treat corns or calluses yourself. Talk to your doctor or field gauger (a doctor who specializes in foot care) if you need assistance trimming your toenails. Use moisturizing cream or lotion if you have dry skin, but dont use it between toes. Dont use heating pads on your feet. If you have neuropathy, you could get a burn and not feel it. Stop smoking. Smoking restricts blood flow and can make it harder for wounds to heal. Have Regular Checkups Foot problems can develop quickly. So be sure to follow your healthcare teams schedule for regular checkups. During office visits, take off your shoes and socks as soon as you get in the exam room. Ask your healthcare provider to examine your feet for problems. This will make it easier to find and treat small skin irritations before they get worse. Regular checkups can also help keep track of the blood flow and feeling in your feet. If you have neuropathy, you may need to have checkups more often. Wear Proper Footwear Wearing proper footwear is very important. If areas of your feet have been damaged by too much pressure, your healthcare provider may recommend changing your footwear. In some cases, avoiding high heels or tight work boots may be all thats needed. Or, your healthcare provider may recommend special shoes or custom inserts. These help protect your feet and keep existing irritations from getting worse. If you need special footwear, ask your healthcare provider if you qualify for [employer] diabetic shoe program. Make Sure Shoes and Socks Fit Any pair of shoes--new or old--should feel comfortable as soon as you put them on. There shouldnt be any rubbing when you walk. Wear the right shoe for any activity. For instance, a running shoe is designed to keep your feet injury-free while jogging. Buy shoes at the end of the day, when your feet are larger. Make sure they provide support without feeling too loose. Make sure your socks fit, too. Wear soft, seamless, well-padded socks for activity. Cotton or microfiber socks are best to help to absorb sweat. To protect your feet, avoid shoes that are open-toed or open-heeled. If you have questions about what kinds of shoes and socks are best, talk to your healthcare team. Get Regular Exercise Regular exercise improves blood flow in your feet. It also increases foot strength and flexibility.Gentle exercises, like walking or riding a stationary bicycle, are best. You can also do special foot exercises. Just be sure to talk with your healthcare provider before starting any exercise program. Also mention if any exercise causes pain, redness, or other signs of foot problems. Note: If you have any kind of break in the skin of your foot or ankle, keep the area clean. Then call your doctor--especially if the area doesnt appear to be healing. [id number] [employer], [address] [place] [address], [place] [address]. All rights reserved. This information is not intended as a substitute for professional medical care. Always follow your healthcare professional's instructions. Diabetic Retinopathy: Evaluating Your Eyes Diabetic retinopathy is a condition that happens when diabetes damages blood vessels in the rear ofthe eye. It can lead to vision loss. To help catch it early, have a complete dilated eye exam at least once a year. During the exam, the eye healthcare provider will review your medical history, examine your eyes, and check your vision. Women who are and have pre-existing type 1 or type 2 diabetes have an increased risk of retinopathy. Women with diabetes should have an eye exam before or in the first trimester. They should continue to be monitored every trimester and for 1 year after delivery, depending on the severity of the retinopathy. The retina is the light-sensitive part of the eye that allows you to see. High blood sugar can damage blood vessels of the retina and cause them to leak or bleed. This damage can lead to abnormal blood vessel growth. This condition is called diabetic retinopathy. You may not have symptoms early in the disease. Later, there may be floaters, blurred vision, or poor night vision. There may also be partial or complete vision loss. Early cases of diabetic retinopathy can be treated by carefully controlling blood sugar, blood pressure, and cholesterol. Surgery or laser treatments may help restore lost vision. Laser surgery can shrink abnormal blood vessels or close ones that are leaking. Medicines injected in the eye can help decrease swelling of the retina. Home care Take all medicines, including insulin or oral diabetic medicine, exactly as prescribed. Follow the diet advised by your healthcare provider. If you have high cholesterol, follow a low-fat, low-cholesterol diet. Monitor blood sugars as advised. Try to achieve your ideal weight. If you smoke, quit smoking. Tobacco use worsens the effect of diabetes on your blood vessels. If you have high blood pressure, consider buying an automatic blood pressure machine. These are available at most pharmacies. Use this to monitor your blood pressure. Report your blood pressure readings to your healthcare provider. Exercise regularly. Follow-up care Follow up with your healthcare provider, or as advised. You must have a complete eye exam at least once a year, more often if needed. Untreated diabetic retinopathy can lead to complete loss of vision. Occupational therapists can help you adapt to any vision loss you have, including learning techniques to safely administer insulin. When to seek medical advice Call your healthcare provider right away if any of these occur. Increasing blurriness or any sudden changes in your vision Sudden flashes of light inside your eye New floaters (small dots or strings that seem to be moving across your field of vision) Eye pain, redness, or discharge from your eyelid New dark spots appearing in your field of vision Halos around lights Dimness of vision Partial or complete loss of vision Women with diabetes should have a complete eye exam before becoming , or as soon as possible when they find out they are . Retinopathy sometimes worsens during . Your eye exam Your eye healthcare provider uses an eye chart and other tools to check your vision. Then he or sheexamines your eyes for signs of disease. You are given eye drops to widen (dilate) your pupils. Youmay have one or more of the following tests: Tonometry to measure fluid pressure inside the eye. Slit lamp exam to allow the healthcare provider to view the structures of your eye. Ultrasound to create an image of the eye using sound waves. Ultrasound may be used if blood is found in the clear gel that fills the eye (vitreous). Ocular coherence tomography (OCT) to create an image of the retina using light waves. This shows ifthere is fluid leaking into certain parts of the eye. It can also measure the thickness of the retina. Fluorescein angiography This test may be done to check the health of the inside lining of the eye (retina). It also checks the tiny blood vessels (capillaries) that carry blood to the retina. During the test: Photographs are taken of the retina. A dye is then injected into the bloodstream through the arm or hand. The dye travels to the capillaries in the eye. More photographs are taken of the retina. The dye causes the capillaries to stand out on the photographs. You may feel brief nausea during the procedure. For a few hours after the test, your skin, eyes, and urine may appear yellow. Talk with your healthcare provider for more information about this test. Date Last Reviewed: 10/02/201519999601-6312 [employer]. [address] [place] [address]. All rights reserved. This information is not intended as a substitute for professional medical care. Always follow your healthcare professional's instructions. documented in this encounter Progress Notes * Caroline Palacios LPN - 08/17/2023 11:29 AM EDT Images from the original note were not included. Socks and Shoes Removed for Annual Diabetic Foot Screening RIGHT FOOT: No Reddened, Cracking, Or Open Areas Noted. RIGHT Dorsalis Pedis Pulse: Palpable RIGHT Posterior Tibial Pulse: Palpable RIGHT Monofilament:Patient reports feeling monofilament pressure on plantar surface of foot LEFT FOOT: No Reddened, Cracking or Open Areas Noted. LEFT Dorsalis Pedis Pulse: Palpable LEFT Posterior Tibial Pulse: Palpable LEFT Monofilament:Patient reports feeling monofilament pressure on plantar surface of foot Do you need diabetic shoes: N/A DM Foot Exam completed today. Provider aware. Caroline Palacios LPN The importance of having a yearly diabetic eye exam has been discussed with patient. Order and/or Referral placed along with patient instructions. Provider made aware. Caroline Palacios LPN The importance of having a yearly diabetic eye exam has been discussed with patient. Order and/or Referral placed along with patient instructions. Provider made aware. Caroline Palacios LPN Diabetic Retinopathy: Evaluating Your Eyes Diabetic retinopathy is a condition that happens when diabetes damages blood vessels in the rear ofthe eye. It can lead to vision loss. To help catch it early, have a complete dilated eye exam at least once a year. During the exam, the eye healthcare provider will review your medical history, examine your eyes, and check your vision. Women who are and have pre-existing type 1 or type 2 diabetes have an increased risk of retinopathy. Women with diabetes should have an eye exam before or in the first trimester. They should continue to be monitored every trimester and for 1 year after delivery, depending on the severity of the retinopathy. The retina is the light-sensitive part of the eye that allows you to see. High blood sugar can damage blood vessels of the retina and cause them to leak or bleed. This damage can lead to abnormal blood vessel growth. This condition is called diabetic retinopathy. You may not have symptoms early in the disease. Later, there may be floaters, blurred vision, or poor night vision. There may also be partial or complete vision loss. Early cases of diabetic retinopathy can be treated by carefully controlling blood sugar, blood pressure, and cholesterol. Surgery or laser treatments may help restore lost vision. Laser surgery can shrink abnormal blood vessels or close ones that are leaking. Medicines injected in the eye can help decrease swelling of the retina. Home care Take all medicines, including insulin or oral diabetic medicine, exactly as prescribed. Follow the diet advised by your healthcare provider. If you have high cholesterol, follow a low-fat, low-cholesterol diet. Monitor blood sugars as advised. Try to achieve your ideal weight. If you smoke, quit smoking. Tobacco use worsens the effect of diabetes on your blood vessels. If you have high blood pressure, consider buying an automatic blood pressure machine. These are available at most pharmacies. Use this to monitor your blood pressure. Report your blood pressure readings to your healthcare provider. Exercise regularly. Follow-up care Follow up with your healthcare provider, or as advised. You must have a complete eye exam at least once a year, more often if needed. Untreated diabetic retinopathy can lead to complete loss of vision. Occupational therapists can help you adapt to any vision loss you have, including learning techniques to safely administer insulin. When to seek medical advice Call your healthcare provider right away if any of these occur. Increasing blurriness or any sudden changes in your vision Sudden flashes of light inside your eye New floaters (small dots or strings that seem to be moving across your field of vision) Eye pain, redness, or discharge from your eyelid New dark spots appearing in your field of vision Halos around lights Dimness of vision Partial or complete loss of vision Women with diabetes should have a complete eye exam before becoming , or as soon as possible when they find out they are . Retinopathy sometimes worsens during . Your eye exam Your eye healthcare provider uses an eye chart and other tools to check your vision. Then he or sheexamines your eyes for signs of disease. You are given eye drops to widen (dilate) your pupils. Youmay have one or more of the following tests: Tonometry to measure fluid pressure inside the eye. Slit lamp exam to allow the healthcare provider to view the structures of your eye. Ultrasound to create an image of the eye using sound waves. Ultrasound may be used if blood is found in the clear gel that fills the eye (vitreous). Ocular coherence tomography (OCT) to create an image of the retina using light waves. This shows ifthere is fluid leaking into certain parts of the eye. It can also measure the thickness of the retina. Fluorescein angiography This test may be done to check the health of the inside lining of the eye (retina). It also checks the tiny blood vessels (capillaries) that carry blood to the retina. During the test: Photographs are taken of the retina. A dye is then injected into the bloodstream through the arm or hand. The dye travels to the capillaries in the eye. More photographs are taken of the retina. The dye causes the capillaries to stand out on the photographs. You may feel brief nausea during the procedure. For a few hours after the test, your skin, eyes, and urine may appear yellow. Talk with your healthcare provider for more information about this test. Date Last Reviewed: 10/02/201519998047-5098 [employer]. [address] [place] [address]. All rights reserved. This information is not intended as a substitute for professional medical care. Always follow your healthcare professional's instructions. * Ame Schwartz CRNP - 08/17/2023 11:11 AM EDT Follow up Family Medicine Visit CC: Chief Complaint Patient presents with NEW PATIENT FORMER LESLIE. NEEDS REFILLS History of Present Illness: Horacio Padilla is a 53 year old male presenting FOR FOLLOW UP. Former [facility] patient. DM: he has hx of DM. Denies low blood sugar symptoms. On Metformin. Misses 2nd pill sometimes. Due for DM eye exam Due for DM foot check- HE DOES HAVE NUMBNESS AND TINGLING IN FEET. HTN: b/p stable on lisinopril. Chronic knee pain- ON MELOXICAM. Gerd is controlled off of meds. 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 Employer: [employer] Comment: [employer] Tobacco Use Smoking status: Never Smokeless tobacco: Never Substance and Sexual Activity Alcohol use: Yes Comment: rare Drug use: No Sexual activity: Yes Partners: Female Comment: fiance, 3 children Other Topics Concern Not on file Social History Narrative Not on file Social Determinants of Health Financial Resource Strain: Not on file Food Insecurity: No Food Insecurity (07/09/2020) Hunger Vital Sign Worried About Running Out of Food in the Last Year: Never true Ran Out of Food in the Last Year: Never true Transportation Needs: Not on file Physical Activity: Not on file Stress: Not on file Social Connections: Not on file Intimate Partner Violence: Not on file Housing Stability: Not on file PMH: Past Medical History: Diagnosis Date Depression hx during previous marriage DM (diabetes mellitus) (HCC) Lipid disorder prior on meds Migraine hx of dermoid cyst as well on MRI Obesity, morbid (more than 100 lbs over ideal weight or BMI > 40) (HCC) 05/29/2013 Past Surgical History: Procedure Laterality Date COLONOSCOPY, DIAGNOSTIC (RECTUM) 01/18/2019 inflammatory tissue on bx, diverticulosis, repeat 5 yrs / [facility] CYSTO/URETERO W/LITHOTRIPSY Left 07/16/2022 CYSTOURETHROSCOPY URETEROSCOPY WITH LITHOTRIPSY AND STENT INSERTION performed by Noel Ayala MD at OR [facility] DENTAL SURGERY PROCEDURE NEC 2009 KNEE ARTHROSCOPY/SURGERY 08/2013 MISCELLANEOUS ORDER ([facility] ONLY) right finger tendon reattachment MISCELLANEOUS ORDER ([facility] ONLY) Right 10/25/2017 open repair of right inguinal hernia with mesh [facility] Dr. Beckman 10/25/17 REMOVE TONSILS & ADENOIDS, UNDER 12 REPAIR INITIAL INGUINAL HERNIA REDUCIBLE AGE 5 OR MORE 01/07/12 Bilateral laparoscopic bilateral hernia repair with mesh 01/07/12 Dr lFores MNMX REPAIR INITIAL INGUINAL HERNIA REDUCIBLE AGE 5 OR MORE Right 10/25/2017 10/25/2017 right inguinal hernia repair - [facility] Dr. Beckman VASECTOMY Outpatient Medications Marked as Taking for the 08/17/23 encounter (Office Visit) with Ame Schwartz CRNP Medication Sig Meloxicam 15 MG Oral Tablet TAKE 1 TABLET BY MOUTH IN THE MORNING. FOR PAIN.. metFORMIN HCl ER 500 MG Oral Tablet Extended Release 24 Hour (Glucophage XR) TAKE 1 TAB TWICE DAILYWITH MEALS Lisinopril 10 MG Oral Tablet (Prinivil) TAKE 1 TABLET BY MOUTH EVERY DAY Mens 50+ Multi Vitamin/Min Oral Tablet Take by mouth. SUMAtriptan Succinate 100 MG Oral Tablet PLEASE SEE ATTACHED FOR DETAILED DIRECTIONS D-Care Glucometer w/Device Kit Use as directed. Glucose Blood In Vitro Strip Use as directed. Lancets Use as directed. Albuterol Sulfate (ALBUTEROL HFA) 108 (90 BASE) MCG/ACT inhaler Inhale 2 Puffs by mouth 4 times a day. Review of patient's allergies indicates: Allergen Reactions Augmentin [Amoxicillin-Pot Clavulanate] Edema face/lips/tongue, Hives and Itching Percocet [Oxycodone-Acetaminophen] Itching Meclizine Tachycardia Most Recent Immunizations Administered Date(s) Administered Pneumococcal Polysaccharide PPV23 (Pneumovax) 05/12/2021 TDAP (age 10 and older)(Boostrix) 05/07/2017 Review of Systems: Physical Exam: BP 136/80 | Pulse 86 | Ht 1.676 m (5' 6") | Wt 135.2 kg (298 lb) | SpO2 96% | BMI 48.10 kg/m | BSA 2.51 m Physical Exam Vitals and nursing note reviewed. Constitutional: Appearance: Normal appearance. HENT: Head: Normocephalic. Right Ear: Tympanic membrane normal. Left Ear: Tympanic membrane normal. Nose: Nose normal. Eyes: Pupils: Pupils are equal, round, and reactive to light. Cardiovascular: Rate and Rhythm: Normal rate and regular rhythm. Pulmonary: Effort: Pulmonary effort is normal. Breath sounds: Normal breath sounds. Abdominal: General: Bowel sounds are normal. Palpations: Abdomen is soft. There is no mass. Tenderness: There is no abdominal tenderness. Musculoskeletal: General: Normal range of motion. Cervical back: Normal range of motion. Skin: General: Skin is warm and dry. Neurological: General: No focal deficit present. Mental Status: He is alert and oriented to person, place, and time. Psychiatric: Mood and Affect: Mood normal. Behavior: Behavior normal. Thought Content: Thought content normal. Judgment: Judgment normal. Assessment and Plan: 1. Type 2 diabetes mellitus without complication, without long-term current use of insulin ([facility]) Due for recheck Continue metformin but take 1000 mg in am - BASIC METABOLIC PANEL; Future - ALBUMIN / CREATININE RATIO, URINE; Future - HEMOGLOBIN A1C; Future - DIABETES FOOT EXAM 2. HTN, goal below 130/80 STABLE ON LISINOPRIL - Lisinopril 10 MG Oral Tablet (Prinivil); Take 1 Tablet by mouth in the morning. Dispense: 90 Tablet; Refill: 1 3. Bilateral chronic knee pain Reviewed risks of chronic nsaid use Patient defers meloxicam 4. Mild intermittent asthma without complication stable 5. Polyp of colon, unspecified part of colon, unspecified type Recommend 5 year check in Jan - COLONOSCOPY, GI REFERRAL OP 6. DM type 2 nursing care encounter (HCC) - TELEMEDICINE DIABETIC EYE I have advised the patient to call our office incase of any worsening or new symptoms. I spent a total of 30-39 minutes (exact time 30 mins) on the date of service in preparation, delivery, and documentation of the care provided to Horacio Padilla excluding any time spent in the performance of separately billed services. Shahab, CRYSTAL, ORLY [facility] documented in this encounter Plan of Treatment Pending Results Name Type Priority Associated Diagnoses Date /Time ALBUMIN / CREATININE RATIO, URINE Lab Routine Type 2 diabetes mellitus without complication, without long-term current use of insulin (HCC) 08/17/2023 11:48 AM EDT Scheduled Orders Name Type Priority Associated Diagnoses Orde r Schedule ALBUMIN / CREATININE RATIO, URINE Lab Routine Type 2 diabetes mellitus without complication, without long-term current use of insulin (HCC) Expected: 08/17/2023 (Approximate), Expires: 08/16/2024 Scheduled Procedures Name Priority Associated Diagnoses Date/Ti me COLONOSCOPY FLEXIBLE PROXIMAL DIAGNOSTIC Recall History of colon polyps Scheduled Referrals Name Type Priority Associated Diagnoses Orde r Schedule COLONOSCOPY, GI REFERRAL OP Referral Within 30 days (routine) Polyp of colon, unspecified part of colon, unspecified type Ordered: 08/17/2023 Health Maintenance Due Date Last Done Comments HIV Screening 01/19/1987 Hepatitis B (1 of 3 - 19+ 3-dose series) 01/19/1991 Zoster Vaccines (1 of 2) 01/19/2022 *SPIROMETRY ONCE FOR ASTHMA-ADULT 03/26/2022 Pneumococcal Vaccine: Pediatrics (0 to 5 Years) and At-Risk Patients (6 to 64 Years) (2 of 2 - PCV) 05/12/2022 05/12/2021 Albumin/Creatinine Ratio 07/31/2022 07/31/2021 Depression Screening 11/28/2022 11/28/2021, 10/16/19 18 HbA1c 12/17/2022 06/19/2022, 11/01, 05/12/2021, Additional history exists COVID-19 Vaccine ( - season) 2023 GFR 06/19/2023 06/19/2022, 11/01, 05/12/2021, Additional history exists Influenza Vaccine (FLU shot) (Season Ended) 2024 COLONOSCOPY-EVERY 5 YRS AGES 18-100 01/19/2024 01/18/2019 Diabetic Eye Exam 08/16/2024 08/17/2023, , 07/31/2021 Diabetic Foot Exam 08/16/2024 08/17/2023 DTaP,Tdap,and Td Vaccines (2 - Td or Tdap) 05/07/2027 05/07/2017 Lipid Panel 06/19/2027 06/19/2022, 05/03, 06/27/2016, Additional history exists GARDASIL-HPV IMMUNIZATION SERIES Aged Out No longer eligible based on patient's age to complete this topic MENINGOCOCCAL (MENACTRA/MENVEO) Aged Out No longer eligible based on patient's age to complete this topic documented as of this encounter Medical Devices Not on filedocumented as of this encounter Procedures Procedure Name Priority Date/Time Associated Diagnosis Comments TELEMEDICINE DIABETIC EYE Routine 08/17/2023 DM type 2 nursing care encounter (HCC) documented in this encounter Results * TELEMEDICINE DIABETIC EYE (08/17/2023) 08/17/2023 Ame VILLALBA DIGITAL PHOTOG VAISHNAVI documented in this encounter Visit Diagnoses Diagnosis Type 2 diabetes mellitus without complication, without long-term current use of insulin (HCC)- Primary HTN, goal below 130/80 Unspecified essential hypertension Bilateral chronic knee pain Pain in joint, lower leg Mild intermittent asthma without complication Unspecified asthma Polyp of colon, unspecified part of colon, unspecified type DM type 2 nursing care encounter (HCC) Type II or unspecified type diabetes mellitus without mention of complication, not stated as uncontrolled documented in this encounter Advance Directives Latest Code Status on File Code Status Date Activated Date Inactivated Comments Full Code 07/16/2022 12:59 PM 07/16/2022 6:08 PM This order reflects the patients wishes and were consensually agreed upon. Question Answer Comments Discussion of Advance Directives occurred with: Patient Code Status History Code Status Date Activated Date Inactivated Comments Full Code 07/16/2022 9:30 AM 07/16/2022 12:59 PM This order reflects the patients wishes and were consensually agreed upon. Question Answer Comments Discussion of Advance Directives occurred with: Patient Care Teams Audio Experience Expert Relationship Specialty Start Date End Date Ame Schwartz CRNP [address] [place] [address] PCP - General Nurse Practitioner 08/17/23 documented as of this encounter
--- OUTSIDE RECORDS SUMMARY | 2023-11-03 05:02 | External Medical Summary ---
Author Name Unknown Address Unknown Organization [id number]:[facility]AT[facility] - [address] [place] [address] Laboratory Report Ordering Provider Test Date Status RICHARD CARMEN 08/17/2023 11:46:47 Final Observation Date Value Abnormality Reference (Units ) Status MYCODE SPECIMEN-SST 08/17/2023 11:46:47 Freezing of extracted DNA, whole blood and/or serum. Final Performing Location [facility] - [address] [place] [id number]
--- OUTSIDE RECORDS SUMMARY | 2023-11-03 05:02 | External Medical Summary ---
Author Name Unknown Address Unknown Organization [id number]:[facility] - [address] [place] [address] Laboratory Report Ordering Provider Test Date Status THEODORE BERNARDO 08/17/2023 11:46:47 Final Observation Date Value Abnormality Reference (Units ) Status BUN 08/17/2023 11:46:47 23 Above high normal 6-20 (mg/dL) Final Creatinine 08/17/2023 11:46:47 1.0 0.6-1.2 (mg/dL) Final Glomerular filtration rate/1.73 sq M.predicted [Volume Rate/Area] in Serum, Plasma or Blood by Creatinine-based formula (CKD-EPI) 08/17/2023 11:46:47 >90 >=60 (mL/min) Final eGFR is calculated based on the CKD-EPI 2020 equation Sodium 08/17/2023 11:46:47 139 135-146 (m mol/L) Final Potassium 08/17/2023 11:46:47 4.5 3.5-5.1 (m mol/L) Final Cl 08/17/2023 11:46:47 102 98-107 (mm ol/L) Final CO2 08/17/2023 11:46:47 23 22-32 (mmo l/L) Final Anion gap 08/17/2023 11:46:47 14 7-15 (mmol /L) Final Glucose 08/17/2023 11:46:47 101 70-120 (mg /dL) Final Albumin 08/17/2023 11:46:47 4.4 3.8-5.0 (g /dL) Final AST (Aspartate aminotransferase) 08/17/2023 11:46:47 19 10-50 (U/L) Final Alk Phos 08/17/2023 11:46:47 74 35-130 (U/ L) Final Bilirubin, Total 08/17/2023 11:46:47 0.3 <=1 .2 (mg/dL) Final Calcium 08/17/2023 11:46:47 9.7 8.4-10.2 ( mg/dL) Final Protein 08/17/2023 11:46:47 7.2 6.0-8.3 (g /dL) Final ALT (Alanine aminotransferase) 08/17/2023 11:46:47 22 10-50 (U/L) Final Performing Location [facility] - [address] [facility] [address]
--- OUTSIDE RECORDS SUMMARY | 2023-11-03 05:02 | External Medical Summary ---
Author Name Unknown Address Unknown Organization [id number]:[facility] [place] - [address] [place] [address] Laboratory Report Ordering Provider Test Date Status LUIS DANIEL JIMENEZ 08/17/2023 11:48:29 Final Normal: <30 mg/g creatinine< br/>High: 30-300 mg/g creatinine
Very High: >300 mg/g creatinine
Nephrotic: >2200 mg/g creatinine Observation Date Value Abnormality Reference (Units ) Status Albumin, Urine 08/17/2023 11:48:29 3.15 (mg/dL) Final Creatinine, Urine 08/17/2023 11:48:29 212 (mg/dL) Final Albumin/Creatinine [Mass Ratio] in Urine 08/17/2023 11:48:29 15 <30 (mg/g Creat) Final Performing Location [facility] [place] - [address] [place] [address]
--- OUTSIDE RECORDS SUMMARY | 2023-11-03 05:02 | External Medical Summary | Summary of Care ---
Author Name Unknown Organization [facility] Address [address] [facility] [place] [address] Phone [phone] Care Team Providers Care Music Copyist Name Role Phone Ame Schwartz Primary Care Provider Reason for Visit * Reason Onset Date Comments Scheduling 08/17/2023 Encounter Details Date Type Department Care Team (Late st Contact Info) Description 08/17/2023 Telephone Family Practice [facility] [address] [place] [address] Ame Schwartz CRNP [address] [place] [address] Scheduling Allergies Active Allergy Reactions Criticality Noted Date Comments Amoxicillin-Pot Clavulanate Edema face/lips/tongue,Hives,Itc miguel High 10/29/2017 Meclizine Tachycardia 12/19/2001 Oxycodone-Acetaminophen Itching Medium 11/09/2017 documented as of this encounter (statuses as of 09/16/2023) Medications Medication Sig Dispensed Refills Start Date End Date Status Albuterol Sulfate (ALBUTEROL HFA) 108 (90 BASE) MCG/ACT inhalerIndications:M ild intermittent reactive airway disease without complication Inhale 2 Puffs by mouth 4 times a day. 1 Inhaler 1 03/08/2019 Active D-Care Glucometer w/Device KitIndications:Type 2 diabetes mellitus without complication, without long-term current use of insulin (HCC) Use as directed. 1 Kit 0 08/09/2020 Active LancetsIndications:T ype 2 diabetes mellitus without complication, without long-term current use of insulin (HCC) Use as directed. 100 Each 11 08/09/2020 Active Glucose Blood In Vitro StripIndications:Typ e 2 diabetes mellitus without complication, without long-term current use of insulin (HCC) Use as directed. 100 Strip 11 08/09/2020 Active SUMAtriptan Succinate 100 MG Oral Tablet PLEASE SEE ATTACHED FOR DETAILED DIRECTIONS 0 11/28/2021 Active Mens 50+ Multi Vitamin/Min Oral [...] as of this encounter (statuses as of 09/16/2023) Active Problems Problem Noted Date Diagnosed Date [...] as of this encounter (statuses as of 09/16/2023) Resolved Problems Problem Noted Date Diagnosed Date [...] as of this encounter (statuses as of 09/16/2023) Immunizations Name Administration Dates Next Due Pneumococcal [...] encounter Miscellaneous Notes * Telephone Encounter - Trisha Roper OSA - 09/16/2023 10:26 AM EDT Lmm CHARLIE Drake 09/16/2023 10:26 AM * Telephone Encounter - Randy Land OSA - 08/17/2023 11:48 AM EDT Please call pt to schedule colonoscopy documented in this encounter Plan of Treatment Upcoming Encounters Date Type Department Care Team (Late st Contact Info) Description 09/20/2023 8:00 AM EDT Imaging Radiology [address] [address] Scheduled Procedures Name Priority Associated Diagnoses Date/Ti [...] filedocumented as of this encounter Advance Directives Latest Code Status [...] Advance Directives occurred with: Patient Care Teams Music Copyist Relationship Specialty Start Date End Date Ame Schwartz CRNP [address] [place] [address] PCP - General Nurse Practitioner 08/17/23 documented as of this encounter
--- OUTSIDE RECORDS SUMMARY | 2023-11-03 05:02 | External Medical Summary | Summary of Care ---
Author Name Unknown Organization [facility] Address [address] [facility] [place] [address] Phone [phone] Care Team Providers Care Projector Booth Operator Name Role Phone Ame Schwartz Primary Care Provider Reason for Visit * Reason Onset Date Comments Scan To Read 08/17/2023 Encounter Details Date Type Department Care Team (Late st Contact Info) Description 08/17/2023 [address] [facility] [address] [place] [address] Ame Schwartz CRNP [address] [place] [address] Scan To Read Allergies Active Allergy Reactions Criticality Noted Date Comments Amoxicillin-Pot Clavulanate Edema face/lips/tongue,Hives,Itc miguel High 10/29/2017 Meclizine Tachycardia 12/19/2001 Oxycodone-Acetaminophen Itching Medium 11/09/2017 documented as of this encounter (statuses as of 08/23/2023) Medications Medication Sig Dispensed Refills Start Date [...] complication, without long-term current use of insulin ([facility]) Use as directed. 100 Each 11 08/09/2020 Active Glucose Blood In Vitro StripIndications:Typ e 2 diabetes mellitus without complication, without long-term current use of insulin ([facility]) Use as directed. 100 Strip 11 08/09/2020 Active SUMAtriptan Succinate 100 MG Oral Tablet PLEASE SEE ATTACHED FOR DETAILED DIRECTIONS 0 11/28/2021 Active Mens 50+ Multi Vitamin/Min Oral Tablet Take by mouth. 0 Active metFORMIN HCl ER 500 MG Oral Tablet Extended Release 24 Hour (Glucophage XR)Indications:Type 2 diabetes mellitus without complication, without long-term current use of insulin ([facility]) TAKE 1 TAB TWICE DAILY WITH MEALS 180 Tablet 3 02/15/2023 Active Lisinopril 10 MG Oral Tablet (Prinivil)Indication s:HTN, goal below 130/80 Take 1 Tablet by mouth in the morning. 90 Tablet 1 08/17/2023 Active documented as of this encounter (statuses as of 08/23/2023) Active Problems Problem Noted Date Diagnosed Date [...] as of this encounter (statuses as of 08/23/2023) Resolved Problems Problem Noted Date Diagnosed Date [...] as of this encounter (statuses as of 08/23/2023) Immunizations Name Administration Dates Next Due Pneumococcal [...] encounter Miscellaneous Notes * Telephone Encounter - Shelton Carbone MD - 08/17/2023 12:02 PM EDT Retinal Scan Imaging Horacio Padilla [id number] Retinal Scan Interpretation: There is no retinopathy in both eyes Diabetes Retinal Imaging Care Plan: The retinal scan results are normal - I will forward this encounter to the Ophthalmology DM Letter Pool [[id number]], they will send a normal retinal scan letter to the patient, and the patient will be seen back for a yearly scan. Shelton Carbone MD 08/17/2023 12:02 PM * Telephone Encounter - Caroline Palacios LPN - 08/17/2023 11:40 AM EDT A Diabetic Telemed Eye image was taken and requires your interpretation for Ame VILLALBA. Please check your inbasket for image. Patient prefers to be seen at [facility] if a follow-up appointment is needed. documented in this encounter Plan of Treatment [...] 11/28/2021, 10/16/19 18 COVID-19 Vaccine (1 - 2022-24 season) 2023 Influenza Vaccine (FLU shot) (Season Ended) 2024 COLONOSCOPY-EVERY 5 YRS AGES 18-100 01/19/2024 01/18/2019 HbA1c 02/16/2024 08/17/2023, 06/03, 11/28/2021, Additional history exists Albumin/Creatinine Ratio 08/16/2024 08/17/2023, 0305/2021 Diabetic Eye Exam 08/16/2024 08/17/2023, , 07/31/2021 Diabetic Foot Exam 08/16/2024 08/17/2023 GFR 08/16/2024 08/17/2023, 06/03, 11/28/2021, Additional history exists DTaP,Tdap,and Td Vaccines (2 - Td or Tdap) 05/07/2027 05/07/2017 Lipid Panel 08/16/2028 08/17/2023, 06/03, 05/14/2017, Additional history exists GARDASIL-HPV IMMUNIZATION SERIES Aged [...] Advance Directives occurred with: Patient Care Teams Projector Booth Operator Relationship Specialty Start Date End Date Ame Schwartz CRNP [address] [place] [address] PCP - General Nurse Practitioner 08/17/23 documented as of this encounter
--- OUTSIDE RECORDS SUMMARY | 2023-11-03 05:02 | External Medical Summary | Summary of Care ---
Author Name Unknown Organization [facility] Address [address] [facility] [place] [address] Phone [phone] Care Team Providers Care Preanalytics Team Lead Name Role Phone Ame Schwartz Primary Care Provider Reason for Referral * Precert (Within 10 days (routine)) - Pending Review Specialty Diagnoses / Procedures Referred By Contac t Referred To Contact Radiology Diagnoses Renal colic on right side History of nephrolithiasis Hematuria, unspecified type Procedures CT ABD/PELVIS WO IV/ORAL CONTRAST Michael Villanueva MD [email or web address] [place] [address] Referral ID Status Reason Start Date Expiration Date V isits Requested Visits Authorized [id number] Pending Review 09/15/2023 999 999 Reason for Visit * Reason Comments Acute Pt here for right lo wer back/kidney pain for 2 weeks. Pt states that he had fell 2 weeks ago and thought that at first it was a pulled muscle but the pain is intermittent. When he fell forward not backwards. Encounter Details Date Type Department Care Team (Late st Contact Info) Description 09/14/2023 8:40 AM EDT Office Visit Family Practice [facility] [address] [place] [address] Michael Villanueva MD [address] [place] [address] Renal colic on right side*; History of nephrolithiasis; Hematuria, unspecified type Allergies Active Allergy Reactions Criticality Noted Date Comments Amoxicillin-Pot Clavulanate Edema face/lips/tongue,Hives,Itc miguel High 10/29/2017 Meclizine Tachycardia 12/19/2001 Oxycodone-Acetaminophen Itching Medium 11/09/2017 documented as of this encounter (statuses as of 09/14/2023) Medications Medication Sig Dispensed Refills Start Date [...] by mouth daily as needed for Rhinitis. 0 Active Ketorolac Tromethamine 10 MG Oral Tablet (Toradol) Take 1 Tablet by mouth 2 times a day as needed for Pain, Severe. Do not take for longer than 5 days 10 Tablet 0 09/14/2023 Active documented as of this encounter (statuses as of 09/14/2023) Active Problems Problem Noted Date Diagnosed Date [...] as of this encounter (statuses as of 09/14/2023) Resolved Problems Problem Noted Date Diagnosed Date [...] as of this encounter (statuses as of 09/14/2023) Immunizations Name Administration Dates Next Due Pneumococcal Polysaccharide PPV23 (Pneumovax) TDAP (age 10 and older)(Boostrix) 05/07/2017 documented as of this encounter Social History Tobacco Use Types Packs/Day Years Used Date Smoking Tobacco: Never Smokeless Tobacco: Never Tobacco Cessation:Counseling Given: Not Answered Alcohol Use Standard Drinks/Week Comments Yes 0 [...] Sign Reading Time Taken Comments Blood Pressure 138/76 09/14/2023 8:49 AM EDT Pulse 82 09/14/2023 8:49 AM EDT Temperature 36.8 C (98.2 F) 09/14/2023 8:49 AM ED T Respiratory Rate 16 09/14/2023 8:49 AM EDT Oxygen Saturation 95% 09/14/2023 8:49 AM EDT Inhaled Oxygen Concentration - - Weight 136.2 kg (300 lb 4.8 oz) 09/14/2023 8:49 AM EDT Height 167.6 cm (5' 6") 09/14/2023 8:49 AM EDT Body Mass Index 48.47 09/14/2023 8:49 AM EDT documented in this encounter Progress Notes * Michael Villanueva MD - 09/14/2023 9:09 AM EDT Images from the original note were not included. History of Present Illness Horacio Padilla is a 53 year old male that presents for Acute (Pt here for right lower back/kidney pain for 2 weeks. Pt states that he had fell 2 weeks ago and thought that at first it was a pulled muscle but the pain is intermittent. When he fell forward not backwards. ) Patient also was down in [place] after this happened and things got worse. Had some beer/drinkswith rhubarb and admits to eating more nuts of late than the had been (almonds, cashews, etc). Had a stone 06/2022 that was removed 07/2022 that was 100% calcium oxalate after it got stuck in his left ureter. Physical Exam BP 138/76 (BP Site: Left Arm, BP Position: Sitting, BP Cuff Size: Large) | Pulse 82 | Temp 36.8 C(98.2 F) (Tympanic) | Resp 16 | Ht 1.676 m (5' 6") | Wt (!) 136.2 kg (300 lb 4.8 oz) | SpO2 95% |BMI 48.47 kg/m | BSA 2.52 m AAOx3 Normal affect NCAT/ RRR Lungs CTABL Abd soft +BS + right CVAT Ext warm and well perfused No gross neuro deficits Normal gait I have reviewed most recent labs None Assessment and Plan Renal colic on right side - + cvat on the right. Hx of stones. Will proceed with imaging in the near future. Has associated nausea. - CT ABD/PELVIS WO IV/ORAL CONTRAST; Future History of nephrolithiasis - reivewed records from 2022 - CT ABD/PELVIS WO IV/ORAL CONTRAST; Future Hematuria, unspecified type - related to above - patients states its been a lot darker but he's color blind so can't describe it beyond that - CT ABD/PELVIS WO IV/ORAL CONTRAST; Future Wrap-Up tbd Time: I spent a total of 30-39 minutes (exact time 31 mins) on the date of service in preparation, delivery, and documentation of the care provided to Horacio Padilla excluding any time spent in the performance of separately billed services. documented in this encounter Plan of Treatment Upcoming Encounters Date Type Department Care Team (Late st Contact Info) Description 09/20/2023 8:00 AM EDT Imaging Radiology [address] [address] Scheduled Orders Name Type Priority Associated Diagnoses Orde r Schedule CT ABD/PELVIS WO IV/ORAL CONTRAST Medical Imaging Routine Renal colic on right side History of nephrolithiasis Hematuria, unspecified type Expected: 09/15/2023, Expires: 10/14/2024 Scheduled Procedures Name Priority Associated Diagnoses Date/Ti [...] as of this encounter Visit Diagnoses Diagnosis Renal colic on right side- Primary Renal colic History of nephrolithiasis Personal history of urinary calculi Hematuria, unspecified type documented in this encounter Advance Directives Latest [...] Advance Directives occurred with: Patient Care Teams Preanalytics Team Lead Relationship Specialty Start Date End Date Ame Schwartz CRNP [address] [place] [address] PCP - General Nurse Practitioner 08/17/23 documented as of this encounter
--- OUTSIDE RECORDS SUMMARY | 2023-11-03 05:02 | External Medical Summary | Summary of Care ---
Author Name Unknown Organization [facility] Address [address] [facility] [place] [address] Phone [phone] Care Team Providers Care Lease Operator Name Role Phone Ame Schwartz Primary Care Provider Reason for Visit * Reason Comments Outpatient Testing Encounter Details Date Type Department Care Team (Late st Contact Info) Description 08/17/2023 12:20 PM EDT [facility], [facility] [address] [facility] [place] [phone] [facility] [address] [place] [address] Dyslipidemia; Type 2 diabetes mellitus without complication, without long-term current use of insulin (HCC); HTN, goal below 130/80; [employer] Other*[id number] Allergies Active Allergy Reactions Criticality Noted Date [...] as of this encounter Plan of Treatment Pending Results Name Type Priority Associated Diagnoses Date /Time LIPID PANEL WITH DIRECT LDL IF TG IS HIGH Lab Routine Dyslipidemia 08/17/2023 11:46 AM EDT HEMOGLOBIN A1C Lab Routine Type 2 diabetes mellitus without complication, without long-term current use of insulin (HCC) 08/17/2023 11:46 AM EDT COMPREHENSIVE METABOLIC PANEL Lab Routine HTN, goal below 130/80 Dyslipidemia Type 2 diabetes mellitus without complication, without long-term current use of insulin (HCC) 08/17/2023 11:46 AM EDT MYCODE SUBSEQUENT ADULT Lab Routine [employer] Other*[id number] 08/17/2023 11:46 AM EDT MYCODE SST1 Lab Routine [employer] Other*[id number] 08/17/2023 11:46 AM EDT MYCODE SST2 Lab Routine [employer] Other*[id number] 08/17/2023 11:46 AM EDT ALBUMIN / CREATININE RATIO, URINE Lab Routine Type 2 diabetes mellitus without complication, without long-term current use of insulin (HCC) 08/17/2023 11:48 AM EDT Scheduled Procedures Name Priority Associated [...] Ratio 07/31/2022 07/31/2021 Depression Screening 11/28/2022 11/28/2021, 06/15/20 18 HbA1c 12/17/2022 06/19/2022, 11/01, 05/12/2021, Additional history exists COVID-19 Vaccine ( - 2022- season) 2023 GFR 06/19/2023 06/19/2022, 11/01, 05/12/2021, [...] as of this encounter Visit Diagnoses Diagnosis Dyslipidemia Other and unspecified hyperlipidemia Type 2 diabetes mellitus without complication, without long-term current use of insulin (HCC) HTN, goal below 130/80 Unspecified essential hypertension [employer] Other*[id number] documented in this encounter Advance Directives Latest [...] Advance Directives occurred with: Patient Care Teams Lease Operator Relationship Specialty Start Date End Date Ame Schwartz CRNP [address] [place] [address] PCP - General Nurse Practitioner 08/17/23 documented as of this encounter
--- OUTSIDE RECORDS SUMMARY | 2023-11-03 05:02 | External Medical Summary | Summary of Care ---
Author Name Unknown Organization [facility] Address [address] [place] [address] Phone [phone] Care Team Providers Care Automatic Tire Tester Name Role Phone Unavailable Primary Care Provider Unavailabl e Encounter Details Date Type Department Care Team (Late st Contact Info) Description 06/28/2023 Orders Only Outcomes Research Department [address] [place], [place] [id number] Mildred Mahoney CHRA [employer] Other*[id number] Allergies Active Allergy Reactions Criticality Noted Date Comments Amoxicillin-Pot Clavulanate Edema face/lips/tongue,Hives,Itc miguel High 10/29/2017 Meclizine Tachycardia 12/19/2001 Oxycodone-Acetaminophen Itching Medium 11/09/2017 documented as of this encounter (statuses as of 06/28/2023) Medications Medication Sig Dispensed Refills Start Date End Date Status Albuterol Sulfate (ALBUTEROL HFA) 108 (90 BASE) MCG/ACT inhalerIndications:Mi ld intermittent reactive airway disease without complication Inhale 2 Puffs by mouth 4 times a day. 1 Inhaler 1 03/08/2019 Active D-Care Glucometer w/Device KitIndications:Type 2 diabetes mellitus without complication, without long-term current use of insulin (HCC) Use as directed. 1 Kit 0 08/09/2020 Active LancetsIndications:Ty pe 2 diabetes mellitus without complication, without long-term current use of insulin (HCC) Use as directed. 100 Each 11 08/09/2020 Active Glucose Blood In Vitro StripIndications:Type 2 diabetes mellitus without complication, without long-term current use of insulin (HCC) Use as directed. 100 Strip 11 08/09/2020 Active SUMAtriptan Succinate 100 MG Oral Tablet PLEASE SEE ATTACHED FOR DETAILED DIRECTIONS 0 11/28/2021 Active Mens 50+ Multi Vitamin/Min Oral Tablet Take by mouth. 0 Active Lisinopril 10 MG Oral Tablet (Prinivil)Indications :HTN, goal below 130/80 TAKE 1 TABLET BY MOUTH EVERY DAY 90 Tablet 3 11/13/2022 Active metFORMIN HCl ER 500 MG Oral Tablet Extended Release 24 Hour (Glucophage XR)Indications:Type 2 diabetes mellitus without complication, without long-term current use of insulin (HCC) TAKE 1 TAB TWICE DAILY WITH MEALS 180 Tablet 3 02/15/2023 Active Meloxicam 15 MG Oral TabletIndications:Tho racic degenerative disc disease,Acute left-sided low back pain without sciatica,Primary osteoarthritis of left knee TAKE 1 TABLET BY MOUTH IN THE MORNING. FOR PAIN.. 90 Tablet 0 02/20/2023 Active documented as of this encounter (statuses as of 06/28/2023) Active Problems Problem Noted Date Diagnosed Date BMI 50.0-59.9, adult 06/19/2022 Kidney stone on left side 06/19/2022 Thoracic degenerative disc disease 06/19/2022 Primary osteoarthritis of left knee 06/19/2022 Body mass index (BMI) of 40.0 to 44.9 in adult 0 12/08/2021 Overview: Per Obesity protocol Mild intermittent asthma without complication Type 2 diabetes mellitus wit hout complication, without long-term current use of insulin 05/12/2021 Diverticulitis of colon 05/12/2021 HTN, goal below 130/80 07/09/2020 Unspecified asthma, uncomplicated 03/08/2019 Reactive airway disease 03/08/2019 Migraine without aura and wi thout status migrainosus, not intractable 10/05/2017 Acute left-sided low back pain without sciatica 12/26/2013 GERD (gastroesophageal reflux disease) 4 Lipid disorder documented as of this encounter (statuses as of 06/28/2023) Resolved Problems Problem Noted Date Diagnosed Date Resolved Date BMI 50.0-59.9, adult 11/28/2021 08/11/2 022 Overview: Per Obesity protocol Body mass index (BMI) of 45. 0 to 49.9 in adult 06/16/2021 12/11/2021 Overview: Per Obesity protocol - Per Obesity protocol Body mass index (BMI) of 50. 0 to 59.9 in adult 01/13/2021 06/18/2021 Overview: Per Obesity protocol Prediabetes 06/15/2017 05/12/2021 Overview: Per Prediabetes protocol #1 Left foot pain 06/19/2014 03/15/2017 Knee pain, right 07/17/2013 03/15/2017 Obesity, morbid (more than 1 00 lbs over ideal weight or BMI > 40) 05/29/2013 01/16/2021 Overview: Per Obesity protocol Other chest pain 06/23/2012 10/03/2012 Unilateral inguinal hernia 12/04/2011 0 10/03/2012 Screening for diabetes mellitus 11/27/2011 10/03/2012 Pain in the abdomen 11/27/2011 10/04/19 13 Pain in the groin 11/27/2011 10/03/2012 Dizzy spells 11/27/2011 10/03/2012 documented as of this encounter (statuses as of 06/28/2023) Immunizations Name Administration Dates Next Due Pneumococcal [...] as of this encounter Plan of Treatment Scheduled Orders Name Type Priority Associated Diagnoses Orde r Schedule MYCODE SUBSEQUENT ADULT Lab Routine [employer] Research Other*[id number] Every 6 Months for 2 Occurrences starting 06/28/2023 until 07/17/2024 Scheduled Procedures Name Priority Associated Diagnoses Date/Ti me COLONOSCOPY FLEXIBLE PROXIMAL DIAGNOSTIC Recall History of colon polyps Health Maintenance Due Date Last Done Comments HIV Screening 01/19/1987 Diabetic Foot Exam 01/19/1990 Hepatitis B (1 of 3 - 19+ [...] season) 2023 Influenza Vaccine (FLU shot) (#1) 2023 GFR 06/19/2023 06/19/2022, 11/01, 05/12/2021, Additional history exists Diabetic Eye Exam 11/28/2023 11/27/2022, 07/31/2021 COLONOSCOPY-EVERY 5 YRS AGES 18-100 01/19/2024 01/18/2019 DTaP,Tdap,and Td Vaccines (2 - Td or [...] as of this encounter Visit Diagnoses Diagnosis [employer] [facility] Other*[id number] documented in this encounter Advance Directives Latest [...]
--- OUTSIDE RECORDS SUMMARY | 2023-11-03 05:02 | External Medical Summary ---
Author Name Unknown Address Unknown Organization K01:[facility] - [address] [place] [address] Laboratory Report Ordering Provider Test Date Status RICHARD CARMEN 08/17/2023 11:46:47 Final Observation Date Value Abnormality Reference (Units ) Status MYCODE SPECIMEN-SST 08/17/2023 11:46:47 Freezing of extracted DNA, whole blood and/or serum. Final Performing Location [facility] - [address] [place] [address]
--- OUTSIDE RECORDS SUMMARY | 2023-11-03 05:02 | External Medical Summary ---
Author Name Unknown Address Unknown Organization K01:[facility] [place] [address] [place] [address] Laboratory Report Ordering Provider Test Date Status THEODORE BERNARDO 08/17/2023 11:46:47 Final Observation Date Value Abnormality Reference (Units ) Status HbA1C 08/17/2023 11:46:47 6.3 Above high normal 4. 0-5.6 (%) Final The use of HbA1c to monitor glycemic status is based on normal hemoglobin and HbA composition. This test should not be used in patients with abnormal hemoglobin that affects the half life of the red blood cell or the in vivo glycation rates. Glucose, estimated average 08/17/2023 11:46:47 134 Above high normal <126 (mg/dL) Livan rivas Performing Location [facility] [place] [address] [place] [address]
--- OUTSIDE RECORDS SUMMARY | 2023-11-03 05:02 | External Medical Summary | Summary of Care ---
Author Name Unknown Organization [facility] Address [address] [facility] [place] [address] Phone [phone] Care Team Providers Care Intensivist Name Role Phone Ame Schwartz Primary Care Provider Reason for Visit * Reason Onset Date Comments Scheduling 08/17/2023 Encounter Details Date Type Department Care Team (Late st Contact Info) Description 08/17/2023 Telephone Family Practice [facility] [address] [place] [address] Ame Schwartz CRNP [address] [place] [address] Scheduling Allergies Active Allergy Reactions Criticality Noted Date Comments Amoxicillin-Pot Clavulanate Edema face/lips/tongue,Hives,Itc miguel High 10/29/2017 Meclizine Tachycardia 12/19/2001 Oxycodone-Acetaminophen Itching Medium 11/09/2017 documented as of this encounter (statuses as of 08/18/2023) Medications Medication Sig Dispensed Refills Start Date [...] as of this encounter (statuses as of 08/18/2023) Active Problems Problem Noted Date Diagnosed Date [...] as of this encounter (statuses as of 08/18/2023) Resolved Problems Problem Noted Date Diagnosed Date [...] as of this encounter (statuses as of 08/18/2023) Immunizations Name Administration Dates Next Due Pneumococcal [...] encounter Miscellaneous Notes * Telephone Encounter - Randy Land OSA [...] Advance Directives occurred with: Patient Care Teams Intensivist Relationship Specialty Start Date End Date Ame Schwartz CRNP [address] [place] [address] PCP - General Nurse Practitioner 08/17/23 documented as of this encounter
--- OUTSIDE RECORDS SUMMARY | 2023-11-03 05:02 | External Medical Summary | Summary of Care ---
Author Name Unknown Organization [facility] Address [address] [facility] [place] [address] Phone [phone] Care Team Providers Care Veneer Splicer Name Role Phone Unavailable Primary Care Provider Unavailabl e Reason for Visit * Reason Comments eRx-Medication Refill Encounter Details Date Type Department Care Team (Late st Contact Info) Description 05/30/2023 Refill Family Practice [facility] [address] [facility] [place] [address] Michael Nelson, DO [address] [place] [address] Thoracic degenerative disc disease; Acute left-sided low back pain without sciatica; Primary osteoarthritis of left knee Allergies Active Allergy Reactions Criticality Noted Date Comments Amoxicillin-Pot Clavulanate Edema face/lips/tongue,Hives,Itc miguel High 10/29/2017 Meclizine Tachycardia 12/19/2001 Oxycodone-Acetaminophen Itching Medium 11/09/2017 documented as of this encounter (statuses as of 06/25/2023) Medications Medication Sig Dispensed Refills Start Date [...] as of this encounter (statuses as of 06/25/2023) Active Problems Problem Noted Date Diagnosed Date [...] as of this encounter (statuses as of 06/25/2023) Resolved Problems Problem Noted Date Diagnosed Date Resolved Date BMI 50.0-59.9, adult 11/28/2021 022 Overview: Per [...] as of this encounter (statuses as of 06/25/2023) Immunizations Name Administration Dates Next Due Pneumococcal [...] encounter Miscellaneous Notes * Telephone Encounter - Leticia Kennedy LPN - 06/25/2023 7:43 AM ESTRefused Prescriptions: Disp Refills Meloxicam 15 MG Oral Tablet (Mobic) 90 Tab*1 Sig: TAKE 1 TABLETBY MOUTH IN THE MORNING. FOR PAIN..Refused By: LETICIA KENNEDY for Refusal: Appt. Required, please call patient * Telephone Encounter - Leticia Kennedy LPN - 06/25/2023 7:42 AM EST Letter sent * Telephone Encounter - Randy Land OSA - 06/24/2023 9:21 AM ESTPending Prescriptions: Disp Refills Meloxicam 15 MG Oral Tablet (Mobic) 90 Tab*1 Sig: TAKE 1 TABLET BY MOUTH IN THE MORNING. FOR PAIN.. * Telephone Encounter - Randy Land OSA - 06/24/2023 9:21 AM EST MyG sent to pt * Telephone Encounter - Randy Land OSA - 06/18/2023 12:02 PM EST LMOM for pt to schedule with new PCP * Telephone Encounter - Get Fractal, E-Rx Ss Inbound - 06/02/2023 11:07 AM EST Pending Prescriptions: Disp Refills Meloxicam 15 MG Oral Tablet (Mobic) 90 Tab*1 Sig: TAKE 1 TABLET BY MOUTH IN THE MORNING. FOR PAIN.. * Telephone Encounter - Leticia Kennedy LPN - 05/31/2023 12:25 PM ESTPending Prescriptions: Disp Refills Meloxicam 15 MG Oral Tablet (Mobic) 90 Tab*1 Sig: TAKE 1 TABLET BY MOUTH IN THE MORNING. FOR PAIN.. * Telephone Encounter - Leticia Kennedy LPN - 05/31/2023 12:24 PM EST Was a Manish pt Please assist to schedule appointment with new PCP for med refills * Telephone Encounter - Wlado Iraheta RPh - 05/31/2023 12:21 PM ESTPending Prescriptions: Disp Refills Meloxicam 15 MG Oral Tablet (Mobic) 90 Tab*1 Sig: TAKE 1 TABLET BY MOUTH IN THE MORNING. FOR PAIN.. * Telephone Encounter - Waldo Iraheta [facility] - 05/31/2023 12:20 PM EST Patient has no PCP under whom to authorize refills. Please approve if appropriate. Thank You, Waldo Sanchez [facility] Clinical Pharmacist [facility] ([facility]) (formerly Telepharmacy) 05/31/2023, 12:21 PM * Telephone Encounter - Waldo Iraheta [facility] - 05/31/2023 12:19 PM EST Pending Prescriptions: Disp Refills Meloxicam 15 MG Oral Tablet (Mobic) [Phar*90 Tab*0 Sig: TAKE 1 TABLET BY MOUTH IN THE MORNING. FOR PAIN.. Last Visit: 01/13/2023 (in office), Visit date not found (telemedicine) Next Visit: Visit date not found If no future appointments scheduled, and last appointment is greater than a year ago, please schedule patient for a follow-up appointment Last date the medication was ordered: 02/20/23 Pharmacy: [id number] [address] [facility] Is this request for a controlled substance? No Urine Drug Screen:No results found for this or any previous visit. Patient Phone Numbers Labs: Lab Results Component Value Date/Time CREAT 1.0 06/19/2022 04:53 PM CREAT 0.9 10/29/2018 12:02 PM POTASSIUM 4.5 06/19/2022 04:53 PM POTASSIUM 4.4 10/29/2018 12:02 PM TSH 2.62 05/14/2017 08:03 AM LDLCALC 147 (H) 06/19/2022 04:53 PM LDLCALC 183 (H) 05/14/2017 08:03 AM LDLDIRECT NOT APPLICABLE 06/27/2016 09:20 AM ALT 31 10/12/2017 04:08 PM HGBA1C 6.4 (H) 06/19/2022 04:53 PM HGBA1C 6.2 (H) 03/08/2019 10:41 AM documented in this encounter Plan of Treatment [...] 11/01, 05/12/2021, Additional history exists COVID-19 Vaccine (1 - 2022- season) 2023 [...] as of this encounter Visit Diagnoses Diagnosis Thoracic degenerative disc disease Degeneration of thoracic or thoracolumbar intervertebral disc Acute left-sided low back pain without sciatica Primary osteoarthritis of left knee Primary localized osteoarthrosis, lower leg documented in this encounter Advance Directives Latest [...]
[2023-11-03 06:30] LABS: Hematocrit (blood only) 37.9 % (42.0-52.0); Hemoglobin 12.6 g/dl (14.0-18.0); Mean Corpuscular Hemoglobin 30.5 pg (25.0-34.0); Mean Corpuscular Hgb Conc 33.2 g/dL (32.0-36.0); Mean Corpuscular Volume 91.8 fL (80.0-100.0); Mean Platelet Volume 11.5 fL (9.4-12.4); Platelet Count 166 K/uL (130-400); RDW Standard Deviation 43.5 fL (36.4-46.3); Red Blood Count 4.13 M/uL (4.70-6.10)
[2023-11-03 06:35] LABS: BUN Creatinine Ratio 20.8 (10-20); Calcium 7.6 mg/dl (8.6-10.3); Creatinine Clr Calc Pharmacy 133.4 ml/min; Est GFR (African American) 105.6 ml/min; Est GFR (Non-African American) 91.2 ml/min; Potassium 4.2 mmol/L (3.5-5.1)
--- NOTE | 2023-11-03 08:38 | Urology Consultation ---
<Statement entered by Bob Rodríguez MD - 11/03/23 11:24> I have discussed Mr. Shannon's case with ORLY Yates and agree with the above documentation. He has a left ureteral stone. Urinalysis with several markers of inflammation, however this may be related to surgery on the right side earlier this week. He does not appear to be septic at this time and would like to hold off stent placement. We reasonable for trial of medical expulsive therapy. If clinical condition deteriorates or if he starts to show signs of infection, we can reevaluate stent placement. -Bob Rodríguez MD. Date of Consultation November 03, 2023 Assessment & Plan (1) Left ureteral stone: (2) Acute left flank pain: 53-year-old male with history of recurrent kidney stones who is status post right ureteroscopy, laser lithotripsy and stent placement at [facility] on 10/31 was admitted for left flank pain secondary to a 4 mm left ureteral stone. Patient is afebrile, hemodynamically stable Labs reviewedcreatinine 0.96, WBC trending down (11.9) Urinalysis notable for 1+ LE, >20 RBC, 11-20 WBC, but was negative for bacteria Urine culture is pending Currently on IV ceftriaxone CT reviewed and discussedhe has mild left hydronephrosis secondary to an obstructing 4 mm left ureteral stone, right ureteral stent is in good position; bilateral nephrolithiasis He reports pain has resolved at this time We reviewed and discussed stone management options including observation/trial of passage versus left ureteral stent placement today After discussion, he declines stent placement today and prefers trial of passage Okay for diet today, can reassess for intervention tomorrow if he remains inpatient If his pain is controlled, reasonable to discharge when medically stable with empiric antibiotics and symptom management Ultimately, he can follow-up with his urologist for ongoing stone management We discussed stent placement if he became febrile/changes in clinical status will continue to follow while inpatient History of Present Illness Attending Physician: Mary Jane Mitchell MD History of Present Illness This is a 53-year-old male with past medical history of migraine, obesity, sleep apnea and recurrent kidney stones recently status post outpatient right ureteroscopy, laser lithotripsy and right stent placement at [facility] on 11/01/23 who presented to the emergency department on 11/02/2023 with vomiting and left flank pain. On arrival to ED, he was afebrile, hypertensive, but otherwise stable vitals. Lab work showed creatinine 1.21, leukocytosis of 19.09, hemoglobin 15.3. Urinalysis notable for 3+ blood, 1+ LE, 11-20 WBC, >20 RBC, negative for bacteria. Workup included CT abdomen pelvis with IV contrast. CT imaging demonstrated mild left hydronephrosis secondary to an obstructing 4 mm stone within the mid left ureter, bilateral nephrolithiasis, right ureteral stent appears in good position. ED course included IV fluids, ceftriaxone, ketorolac, morphine and ondansetron. He was admitted to the hospital medicine service for renal colic. Patient seen and examined at bedside this morning. He reports he is feeling much better since arrival. Denies flank pain at present. No nausea or vomiting. He is voiding spontaneously. No dysuria. Reports hematuria has cleared postprocedure. No fever or chills. He reports history of recurrent stones. He has history of surgical intervention on stones as well as spontaneous passage. He has had sips of water today, but has not had breakfast yet. Allergies Allergy/AdvReac Type Severity Reaction Status Date / Time acetaminophen [From Percocet] Allergy Severe itching Verified 11/02/23 17:27 amoxicillin [From Augmentin] Allergy Severe edema to Verified 11/02/23 17:27 face/lips/tongue, itching clavulanic acid Allergy Severe edema to Verified 01/18/19 08:28 [From Augmentin] face/lips/tongue, itching meclizine Allergy Severe HEART RACE Verified 01/18/19 08:28 oxycodone [From Percocet] Allergy Severe itching Verified 01/18/19 08:28 Home Medications Medication Instructions Recorded Confirmed Type lisinopril 10 mg tablet 10 mg PO DAILY 07/24/22 11/02/23 History meloxicam 15 mg tablet 15 mg PO QAM 07/24/22 11/02/23 History metformin 500 mg tablet,extended 500 mg PO BIDM 07/24/22 11/02/23 History release 24 hr ondansetron 4 mg disintegrating 0.4 mg translingual Q8 PRN Nausea 07/24/22 11/02/23 History tablet sumatriptan succinate 100 mg tablet 100 mg PO UD PRN Migraine Headache 07/24/22 11/02/23 History tamsulosin 0.4 mg capsule 0.4 mg PO DAILY 07/24/22 11/02/23 History furosemide 20 mg tablet 20 mg PO QAM 11/02/23 11/02/23 History tramadol 50 mg tablet 50 mg PO UD PRN Pain 11/02/23 11/02/23 History Patient History Medical History Obesity, morbid, BMI 40.0-49.9 Osteoarthritis Kidney stones Diverticular disease Migraine Hyperlipidemia no meds Sleep apnea sleep study test "inclusive"--no device Asthma inhaler prn Surgical History Status post tendon repair right hand History of arthroscopy of right knee Hx of vasectomy History of right inguinal hernia repair History of bilateral inguinal hernia repair History of tooth extraction History of wisdom tooth extraction History of tonsillectomy and adenoidectomy Family History Mother Family history of diabetes mellitus Other No family history of adverse response to anesthesia Social History Smoking Status: Never smoker Second Hand Exposure: Yes ( smokes); Do You Dip or Chew Tobacco: No; Hx Alcohol Use: No Hx Substance Use: No Preferred Language: Zambian Communication Ability: Effective Preform Machine Operator Required: No Beliefs That Will Affect Care: None Current Living Situation: Family Current Living Situation Comment: Personal Home with son Kristian Other Information That Helps Us Care for You: No Feels Safe at Home: Yes Safety Concerns: Feels Safe At This Time Assistive Devices: Glasses Review of Systems Review of Systems: All systems reviewed & are unremarkable except as noted in HPI & below Physical Exam Constitutional: well developed and well nourished; no acute distress Respiratory: normal respiratory effort; no respiratory distress and no labored breathing Gastrointestinal (Abdomen): Inspection/Auscultation: abdomen normal to inspection Musculoskeletal: Head/Neck/Chest: normocephalic Neurologic: moves all extremities and awake Psychiatric: Orientation: alert and oriented x 3 Results & Data Vital Signs (Past 12 Hours) Vital Signs Temp Pulse Pulse Pulse Resp BP BP 11/03/23 07:35 36.2 C L 61 18 135/75 11/03/23 04:23 36.5 C 64 18 122/73 11/02/23 23:59 36.9 C 60 20 132/72 11/02/23 23:07 36.9 C 60 20 132/72 11/02/23 22:06 72 11/02/23 21:16 70 11/02/23 21:00 36.9 C 65 18 156/89 H Pulse Ox O2 Del Method 11/03/23 07:35 95 Room Air 11/03/23 04:23 93 Room Air 11/02/23 23:59 95 Room Air 11/02/23 23:07 95 Room Air 11/02/23 22:06 11/02/23 21:16 11/02/23 21:00 96 Room Air PG Care Time/CCT Total # of Minutes Spent Total Time Spent with Patient: Total time spent is greater than 50% in coordination of care (as documented) at patient's floor/unit and/or counseling patient: Coding Level of Care Code 43530 IN/OBS CONSULT LVL 4,60M Diagnoses Left ureteral stone N20.1 Acute left flank pain R10.9
[2023-11-03] MEDS: cefTRIAXone SODIUM 2,000 MG/50 ML BAG IV SCH (09:06)
[2023-11-03] MEDS: TAMSULOSIN HCL 0.4 MG CAP PO SCH (09:07)
[2023-11-03] MEDS: lisinopril 10 MG TAB PO SCH (09:07)
--- NOTE | 2023-11-03 10:21 | Hospitalist Progress Note ---
Date of Service November 03, 2023 Assessment & Plan (1) Acute pyelonephritis: (2) Acute left flank pain: (3) Left ureteral stone: (4) Kidney stones: (5) Nausea & vomiting: (6) Hydronephrosis concurrent with and due to calculi of kidney and ureter: (7) HTN (hypertension): Plan 53 year old man with history of hypertension, hyperlipidemia, DM 2 on oral medications, BPH, urolithiasis, migraine who presents with left flank pain that started one day after right ureteral stent placement, associated with fever, chills at home Noted to have leukocytosis of 19K on presentation CT abd and pelvis noted mild left hydronephrosis due to obstruction 4mm stone in mid left ureter, bilateral nephrolithiasis, right ureteral stent in good position. Continue IV ceftriaxone for possible acute pyelonephritis Continue IVF Flank pain is resolved at this time Urology evaluation noted. Plan for observation today Continue to strain urine Continue home lisinopril for hypertension Flank pain is resolved at this time. Monitor Hold home metformin and continue ISS per protocol while inpatient DVT ppx - No pharm agent in view of possible procedure Code status - Full code I spent a total of 50 minutes coordinating, documenting and providing care for this patient excluding time spent in performance of separately billed services Admission and Anticipated Discharge Date Admission Date: November 02, 2023 Subjective Patient seen and examined Reported fever, chills, diaphoresis at home yesterday that have resolved Reports mild dysuria since recent right ureteral stent placement at [facility] on 11/01/23, prior to onset of left flank pain Reports left flank pain is currently resolved He is unsure of hematuria due to his reported visual problems Denied any other complaints on ROS Physical Exam Constitutional: + obese; no acute distress Eyes: PERRL, conjunctivae normal, anicteric sclerae ENMT: external ear and nose normal, oropharynx normal Respiratory: normal respiratory effort, lungs clear to auscultation Cardiovascular: Rate/Rhythm: regular rate and regular rhythm Gastrointestinal (Abdomen): normal bowel sounds, soft, nontender, no hepatosplenomegaly Musculoskeletal: No pedal edema Neurologic: PERRL, EOMI, accommodation nl, no face palsy, no dysarthria Psychiatric: A+Ox3, euthymic affect Genitourinary: No CVA tenderness Results & Data Results & Data Vital Signs (Past 12 Hours) Vital Signs Temp Pulse Resp BP Pulse Ox O2 Del Method 11/03/23 07:35 36.2 C L 61 18 135/75 95 Room Air 11/03/23 04:23 36.5 C 64 18 122/73 93 Room Air 11/02/23 23:59 36.9 C 60 20 132/72 95 Room Air 11/02/23 23:07 36.9 C 60 20 132/72 95 Room Air Laboratory Results Abnormal lab results 11/02/23 11/02/23 11/02/23 Range/Units 13:10 16:40 20:55 WBC 19.09 H (4.8-10.8) K/ul RBC (4.70-6.10) M/uL Hgb (14.0-18.0) g/dl Hct (42.0-52.0) % Neut # (Auto) 16.67 H (1.40-6.50) K/uL Lymph # (Auto) 1.17 L (1.20-3.40) K/uL Stafford # (Auto) 1.09 H (0.11-0.59) K/uL BUN/Creatinine Ratio (10-20) Glucose 145 H (70-99(Fasting)) mg/dl POC Glucose 111 H (70-99) mg/dl Calcium (8.6-10.3) mg/dl Ur Specific [place] 1.044 H (1.000-1.030) Urine Protein 1+ H (Negative) Urine Blood 3+ H (Negative) Ur Leukocyte Esterase 1+ H (Negative) Urine WBC (Auto) 11-20 H (0-5) /hpf Urine RBC (Auto) >20 H (0-2) /hpf U Hyaline Cast (Auto) 3-5 H (0-2) /lpf 11/03/23 11/03/23 Range/Units 05:28 08:11 WBC 11.90 H (4.8-10.8) K/ul RBC 4.13 L (4.70-6.10) M/uL Hgb 12.6 L (14.0-18.0) g/dl Hct 37.9 L (42.0-52.0) % Neut # (Auto) (1.40-6.50) K/uL Lymph # (Auto) (1.20-3.40) K/uL Stafford # (Auto) (0.11-0.59) K/uL BUN/Creatinine Ratio 20.8 H (10-20) Glucose 111 H (70-99(Fasting)) mg/dl POC Glucose 100 H (70-99) mg/dl Calcium 7.6 L (8.6-10.3) mg/dl Ur Specific [place] (1.000-1.030) Urine Protein (Negative) Urine Blood (Negative) Ur Leukocyte Esterase (Negative) Urine WBC (Auto) (0-5) /hpf Urine RBC (Auto) (0-2) /hpf U Hyaline Cast (Auto) (0-2) /lpf (7) HTN (hypertension) Hypertension type: primary hypertension Qualified Code(s): I10 - Essential (primary) hypertension
--- OUTSIDE RECORDS SUMMARY | 2023-11-03 14:11 | External Medical Summary | Summary of Care ---
Author Name Unknown Organization [facility] Address [address] [facility] [place] [address] Phone [phone] Care Team Providers Care Java Portal Developer Name Role Phone Ame Schwartz Brittany ORLY Primary Care Provider Reason for Visit * Reason Onset Date Comments Advice 11/02/2023 Pain Encounter Details Date Type Department Care Team (Late st Contact Info) Description 11/02/2023 Telephone Urology [facility] [address] [place] [address] [place] [id number] Moise Chowdhury Jr., MD [address] [place] [id number] Advice (Pain ) Allergies Active Allergy Reactions Criticality Noted [...] than 5 days 10 Tablet 09/23/2023 Active Tamsulosin HCl 0.4 MG Oral Capsule (Flomax) Take 1 Capsule by mouth in the morning. 20 Capsule 11/01/2023 Active traMADol HCl 50 MG Oral Tablet (Ultram) Take 1 Tablet by mouth every 6 hours as needed for Pain, Severe. 15 Tablet 11/01/2023 Active documented as of this encounter (statuses [...] encounter Miscellaneous Notes * Telephone Encounter - Liza Barney LPN - 11/02/2023 1:49 PM EDT Returned call to patient; he is currently at [facility] ER. * Telephone Encounter - Moise Chowdhury Jr., MD - 11/02/2023 12:05 PM EDT It is possible that another stone on the left side moved. He should try the flomax and pain medications and if it worsens he can go to the ER and we can get a CT scan. * Telephone Encounter - Liza Barney LPN - 11/02/2023 11:39 AM EDT Patient called in with complaint/concern of uncontrolled pain. Had right sided cystoscopy, right retrograde pyelogram ureteroscopy with laser lithotripsy and stent placement yesterday. Concerned thathe has uncontrolled pain on his left side; pain is making him dry heave/vomit. Unable to keep pain medication down. Has Zofran at home, going to try taking that to help him keep pain medication down.He wants to know if it's normal to have pain on left side versus right. Denies fevers but is sweating. Low urine volume but advised if he's not keeping anything down, that's normal. documented in this encounter Plan of Treatment Upcoming Encounters Date Type Department Care Team (Latest Contact Info) Description 11/10/2023 9:45 AM EDT Procedure Only Urology [facility] [address] [place] [address] [place] [id number] Moise Chowdhury Jr., MD [address] [place] [id number] 01/13/2024 10:12 AM EDT Hospital Encounter OR [facility], Operating Room, [facility] - 4th Floor [address] [facility] [place] [address] Joby Mane, [address] [place] [id number] 01/13/2024 10:12 AM EDT - 01/13/2024 10:50 AM EDT Surgery OR [facility], Operating Room, [facility] - 4th Floor [address] [place] [address] Joby Mane, DO [address] [place] [id number] COLONOSCOPY FLEXIBLE PROXIMAL DIAGNOSTIC Scheduled Procedures Name [...] 06/03, 11/28/2021, Additional history exists Albumin/Creatinine Ratio 10/24/2024 024, 08/17/2023, 07/31/2021 DTaP,Tdap,and Td Vaccines (2 [...] Advance Directives occurred with: Patient Care Teams Java Portal Developer Relationship Specialty Start Date End Date Ame Schwartz CRNP [address] [place] [id number] PCP - General Nurse Practitioner 08/17/23 documented as of this encounter
[2023-11-03] MEDS ORDERED: Nursing to Pharmacy Communication SCH (22:45)
[2023-11-04 06:32] LABS: Hematocrit (blood only) 39.9 % (42.0-52.0); Hemoglobin 13.3 g/dl (14.0-18.0); Mean Corpuscular Hemoglobin 30.4 pg (25.0-34.0); Mean Corpuscular Hgb Conc 33.3 g/dL (32.0-36.0); Mean Corpuscular Volume 91.3 fL (80.0-100.0); Mean Platelet Volume 11.3 fL (9.4-12.4); Platelet Count 163 K/uL (130-400); RDW Coefficient of Variation 12.9 % (11.5-14.5); RDW Standard Deviation 43.2 fL (36.4-46.3); Red Blood Count 4.37 M/uL (4.70-6.10); White Blood Count 9.74 K/ul (4.8-10.8)
[2023-11-04 06:33] LABS: BUN Creatinine Ratio 23.2 (10-20); Creatinine Clr Calc Pharmacy 140.3 ml/min; Est GFR (African American) 118.7 ml/min; Est GFR (Non-African American) 102.4 ml/min; Potassium 4.3 mmol/L (3.5-5.1)
--- NOTE | 2023-11-04 12:56 | Discharge Summary ---
Date of Service November 04, 2023 Admission HPI Per Admitting Provider 53 year old man with history of hypertension, hyperlipidemia, DM 2 on oral medications, BPH, urolithiasis, migraine who presents with left flank pain that started one day after right ureteral stent placement, associated with fever, chills at home Had fever, chills, diaphoresis at home Reported mild dysuria since recent right ureteral stent placement at [facility] on 11/01/23, prior to onset of left flank pain Admission Exam Per Admitting Provider General- adult male seen in bed. More comfortable at present Head- atraumatic Eyes- PERRL, EOMI, anicteric ENT- oropharynx clear Neck- supple, no JVD, no adenopathy, no thyromegaly; carotids +2/2, no bruits appreciated Lungs- clear to auscultation and percussion Heart- regular rhythm; no murmur, no gallop, no rub appreciated Abdomen- normal bowel sounds, soft, nontender, no masses or hepatosplenomegaly, positive Floyd sign left Extremities-trace edema, no calf tenderness; peripheral pulses intact Neuro- alert, oriented x 3; PERRL, EOMI; no facial palsy; no dysarthria; motor 5/5 bilaterally; no cogwheel rigidity; patellar DTRs +2/2; toes downgoing bilaterally; finger to nose intact bilaterally Skin- warm & dry Principal Diagnosis Acute pyelonephritis Left ureteral stone Discharge Exam Constitutional + obese; no acute distress Eyes PERRL, conjunctivae normal, anicteric sclerae ENMT external ear and nose normal, oropharynx normal Respiratory normal respiratory effort, lungs clear to auscultation Cardiovascular Rate/Rhythm: regular rate and regular rhythm S1 S2 Gastrointestinal (Abdomen) normal bowel sounds, soft, nontender, no hepatosplenomegaly Musculoskeletal No pedal edema Neurologic PERRL, EOMI, accommodation nl, no face palsy, no dysarthria Psychiatric A+Ox3, euthymic affect Discharge Data Allergies Allergy/AdvReac Type Severity Reaction Status Date / Time acetaminophen [From Percocet] Allergy Severe itching Verified 11/02/23 17:27 amoxicillin [From Augmentin] Allergy Severe edema to Verified 11/02/23 17:27 face/lips/tongue, itching clavulanic acid Allergy Severe edema to Verified 01/18/19 08:28 [From Augmentin] face/lips/tongue, itching meclizine Allergy Severe HEART RACE Verified 01/18/19 08:28 oxycodone [From Percocet] Allergy Severe itching Verified 01/18/19 08:28 Consultations 11/02/23 17:29 ED Decision to Admit Stat 11/02/23 18:01 Consult Urology Routine Ordered Studies 11/02/23 13:25 CT Abd and Pelvis [CT abd pelvis IV con only] Stat Hospital Course (1) Acute pyelonephritis: (2) Acute left flank pain: (3) Left ureteral stone: (4) Kidney stones: (5) Nausea & vomiting: (6) Hydronephrosis concurrent with and due to calculi of kidney and ureter: (7) HTN (hypertension): Plan 53 year old man with history of hypertension, hyperlipidemia, DM 2 on oral medications, BPH, urolithiasis, migraine who presents with left flank pain that started one day after right ureteral stent placement, associated with fever, chills at home Noted to have leukocytosis of 19K on presentation CT abd and pelvis noted mild left hydronephrosis due to obstruction 4mm stone in mid left ureter, bilateral nephrolithiasis, right ureteral stent in good position. Was treated with IV ceftriaxone for possible acute pyelonephritis Urine culture has no growth at this time Discharged on po levofloxacin on discharge to complete treatment Managed with IVF Was evaluated by Urology. No intervention recommended Symptoms completely resolved. Needs to follow up with Urology. Patient reported he already has an appointment Continue home lisinopril for hypertension Continue home metformin Total Time Total Time Spent Total Time Spent (In Minutes): 35 Total Time Includes: Examination of the Patient, Discharge Planning and Medicati on Reconciliation Discharge Plan Discharge Items Patient Disposition: Home - Self-Care Reason For Visit: FLANK PAIN Discharge Diagnosis: Acute pyelonephritis Left ureteral stone Activity: Resume your previous activity Non-emergency contact: Primary Care Provider and Urologist Call non-emergency contact if: you have any medication questions Follow-up/Referrals: Ame Schwartz CRNP [Outside Practitioners] - (Date & Time 11/11/2023 9:40 AM Provider Michael Villanueva MD Department Family Practice [facility] ) Moise Chowdhury MD [Outside Practitioners] - (Date & Time 11/10/2023 9:45 AM Provider Moise Chowdhury Jr., MD Department Urology [facility] ) Diet: Carb Consistent or DM2 and Heart Healthy Addtl Attending Provider Instructions: Mr Shannon You presented to the hospital complaining of left flank pain associated with fever. You were evaluated and found to have stone in your left ureter. Your symptoms have all resolved You are being discharged on oral antibiotics. Please ensure follow up with your Urologist Please ensure follow up with your Family Doctor. It was a pleasure taking care of you. Pending Studies at Discharge: No Stand-Alone Forms: My [facility] Map Decisions, Smoking Cessation Medications and DC Order Prescriptions: New levofloxacin 750 mg tablet 750 mg PO DAILY 5 Days Qty: 5 0RF Continued tamsulosin 0.4 mg capsule 0.4 mg PO DAILY lisinopril 10 mg tablet 10 mg PO DAILY sumatriptan succinate 100 mg tablet 100 mg PO UD PRN (Reason: Migraine Headache) meloxicam 15 mg tablet 15 mg PO QAM ondansetron 4 mg tablet,disintegrating 0.4 mg translingual Q8 PRN (Reason: Nausea) metformin 500 mg tablet extended release 24 hr 500 mg PO BIDM tramadol 50 mg tablet 50 mg PO UD PRN (Reason: Pain) furosemide 20 mg tablet 20 mg PO QAM Discharge Orders: Discharge Order (Routine); Ordered 11/04/23 Ordered By: Mary Jane Mitchell Admission Data Admit Date/Time: 11/02/23 17:42 Attending Provider: Mary Jane Mitchell I. Admit Provider: Jerardo Matos Primary Care Provider: Michael Nelson Other Providers: Christiano Harkins; Jerardo Matos Other Interventions: Discharge Summary Assessment (RN) Last Done: 11/04/23 13:09
== END 2023-11-04 13:57 | disposition home or self-care (01) | DRG 690 ==
LOC: ED 13:08 → SUATTDRO 17:42 → 2W 17:42